=== PATIENT | female | born 1965 | race Caucasian/White ===

== ENCOUNTER 2016-08-16 13:47 | Inpatient (IN) | payer BC ==
[~2016-08-16] VITALS: Ht 162.6 cm; Wt 51.9 kg
[~2016-08-16 13:47] MED LIST: NO ROUTINE MEDS
--- OUTSIDE RECORDS SUMMARY | 2016-08-16 15:08 | XMS REPORT | Continuity of Care Document ---
Author Author [facility] Organization [facility] Address Unknown Phone Unavailable Support Name Relationship Address Phone GOLD FLOWERS MD Caregiver [address] [place] [address] [place] [address] Unavailable JAROCHO GORDON MD Caregiver [address] [place] [address] Unavailable KIA ALLI Jay Next Of Kin [address] [phone] Insurance Providers Guarantor KiaMojgan E Address [address] [place] [phone] Email DENIED 07-25-16 Payer [facility] Policy Number [id number] Subscriber's Name Alli Adam Relationship 01 Spouse Group Number [id number] Chief Complaint and Reason for Visit Chief Complaint Altered Mental Status Reason for Visit Hemorrhagic stroke Problems Past Problems Medical Problem Onset Date Hemorrhagic stroke Unknown Medications Current Home Medications Medication Dose Units Route Directions Days Qty Instructions Start Date No Routine Meds 07/25/16 Social History Query Response Start Date Stop Date Smoking Status Never smoker Hospital Discharge Instructions No hospital discharge instructions. Plan of Care Discharge Date 07/25/16 9:00pm Disposition 02 TO [facility] Condition at Discharge Stabilized for Transport Prescriptions See Medication Section Referrals JAROCHO GORDON MD Address: [address] [place] [address] Functional Status No functional status results. Allergies, Adverse Reactions, Alerts Allergen Type Severity Reaction Status Last Updated NKDA Allergy Unknown Active 07/25/16 Immunizations No immunization records. Vital Signs Acute Vital Signs Vital Response Date/Time Temperature (Fahrenheit) 98.3 deg F (96.8 - 99.1) 07/25/2016 9:00pm Temperature (Calculated Celsius) 36.25667 degrees C (36.0 - 37.3) 07/25/2016 9:00pm Pulse Rate (adult) 88 bpm (60 - 100) 07/25/2016 9:00pm Respiratory Rate 17 breaths/min (10 - 20) 07/25/2016 9:00pm O2 Sat by Pulse Oximetry 98 % (90 - 100) 07/25/2016 9:00pm Blood Pressure 252/134 mm Hg 07/25/2016 9:00pm Height (Feet) 5 feet 07/25/2016 8:10pm Height (Inches) 4.00 inches 07/25/2016 8:10pm Weight (Kilograms) 47.300 kg 07/25/2016 8:10pm Body Mass Index (BMI) 17.0 07/25/2016 8:10pm Results Laboratory Results Test Name Result Units Flags Reference Collection Date/Time Result Date/ Time Comments White Blood Count 6.4 T/MM3 4.5-11.0 07/25/2016 8:27pm 07/25/2016 8: 35pm Red Blood Count 5.43 M/MM3 H 4.00-5.20 07/25/2016 8:27pm 07/25/2016 8: 35pm Hemoglobin 16.8 GM/DL H 12-16 07/25/2016 8:27pm 07/25/2016 8:35pm Hematocrit 48.2 % H 36-46 07/25/2016 8:27pm 07/25/2016 8:35pm Mean Corpuscular Volume 88.8 UM3 80-100 07/25/2016 8:27pm 07/25/2016 8: 35pm Mean Corpuscular Hemoglobin 30.9 UUG 26-34 07/25/2016 8:27pm 2016 8:35pm Mean Corpuscular Hemoglobin Concent 34.9 GM/DL 31-37 07/25/2016 8:pm 07/25/2016 8:35pm RDW Standard Deviation 43.3 FL 36.9-50.2 07/25/2016 8:pm 07/25/2016 8 :35pm Platelet Count 175 T/MM3 130-400 07/25/2016 8:pm 07/25/2016 8:35pm Mean Platelet Volume 10.2 UM3 9.4-12.4 07/25/2016 8:27pm 07/25/2016 8: 35pm Neutrophils (%) (Auto) 63.9 % 33-66 07/25/2016 8:27pm 07/25/2016 8: 35pm Lymphocytes (%) (Auto) 29.0 % 23-45 07/25/2016 8:27pm 07/25/2016 8: 35pm Monocytes (%) (Auto) 5.8 % 0-9.0 07/25/2016 8:27pm 07/25/2016 8:35pm Eosinophils (%) (Auto) 0.8 % 0-4 07/25/2016 8:27pm 07/25/2016 8:35pm Basophils (%) (Auto) 0.3 % 0-2 07/25/2016 8:27pm 07/25/2016 8:35pm Immature Granulocyte % (Auto) 0.2 % 0.0-0.5 07/25/2016 8:pm 2016 8:35pm Absolute Neutrophils (auto) 4.1 T/MM3 1.8-7.7 07/25/2016 8:27pm 2016 8:35pm Absolute Lymphocytes (auto) 1.9 T/MM3 1-4.8 07/25/2016 8:pm 2016 8:35pm Absolute Monocytes (auto) 0.4 T/MM3 0-0.8 07/25/2016 8:27pm 07/25/2016 8:35pm Absolute Eosinophils (auto) 0.1 T/MM3 0-0.5 07/25/2016 8:pm 2016 8:35pm Absolute Basophils (auto) 0.0 T/MM3 0-0.2 07/25/2016 8:27pm 07/25/2016 8:35pm Absolute Immature Granulocyte (auto 0.01 T/MM3 0.00-0.03 07/25/2016 8: 27pm 07/25/2016 8:35pm Prothromb Time International Ratio 0.99 0.76-1.04 07/25/2016 8:pm 07/25/2016 8:38pm THERAPUTIC RANGE=2.00-3.00 FOR ANTI-THROMBOSIS THERAPUTIC RANGE=2.50-3.50 FOR IMPLANTED VALVE Activated Partial Thromboplast Time 34.9 SEC 24-36 07/25/2016 8:27pm 8:38pm Icterus Index < 2 0-7 07/25/2016 8:07/25/2016 8:40pm Chemistry Specimen Hemolysis < 15 0-25 07/25/2016 8:27pm 07/25/2016 8 :40pm 0-25: Specimen Exhibited No Hemolysis. Turbidity < 20 0-20 07/25/2016 8:27pm 07/25/2016 8:40pm Sodium Level 144 MEQ/L 134-144 07/25/2016 8:27pm 07/25/2016 8:40pm Potassium Level 3.8 MEQ/L 3.6-5 07/25/2016 8:27pm 07/25/2016 8:40pm Chloride Level 105 MEQ/L 98-107 07/25/2016 8:27pm 07/25/2016 8:40pm Carbon Dioxide Level 28 MEQ/L 22-30 07/25/2016 8:pm 07/25/2016 8: 40pm Anion Gap 11 MEQ/L 5-15 07/25/2016 8:27pm 07/25/2016 8:40pm Blood Urea Nitrogen 12.0 MG/DL 7-17 07/25/2016 8:pm 07/25/2016 8: 40pm Creatinine 0.9 MG/DL 0.7-1.2 07/25/2016 8:27pm 07/25/2016 8:40pm BUN/Creatinine Ratio 13 RATIO 6-26 07/25/2016 8:pm 07/25/2016 8:40pm Glomerular Filtration Rate Calc 66 07/25/2016 8:pm 07/25/2016 8: 40pm Glucose Level 115 MG/DL H 65-110 07/25/2016 8:pm 07/25/2016 8:40pm Calculated Osmolality 278 MOSM/KG 261-280 07/25/2016 8:pm 07/25/2016 8:40pm Calcium Level 9.9 MG/DL 8.4-10.2 07/25/2016 8:pm 07/25/2016 8:40pm Total Bilirubin 1.10 MG/DL 0.20-1.30 07/25/2016 8:pm 07/25/2016 8: 40pm Alkaline Phosphatase 63 U/L 38-126 07/25/2016 8:27pm 07/25/2016 8:40pm Total Protein 8.6 G/DL H 6.3-8.2 07/25/2016 8:pm 07/25/2016 8:40pm Albumin 5.1 G/DL H 3.5-5.0 07/25/2016 8:27pm 07/25/2016 8:40pm Globulin 3.5 G/DL 2.4-3.6 07/25/2016 8:27pm 07/25/2016 8:40pm Albumin/Globulin Ratio 1.5 RATIO 1.1-2.2 07/25/2016 8:27pm 07/25/2016 8 :40pm Aspartate Amino Transf (AST/SGOT) 38 U/L H 14-36 07/25/2016 8:27pm 07/25 8:40pm Alanine Aminotransferase (ALT/SGPT) 54 U/L H 9-52 07/25/2016 8:27pm 01/2017 8:40pm Troponin I < 0.012 ng/ml 0-0.12 07/25/2016 8:27pm 07/25/2016 8:51pm Troponin values with a difference of 55% increase from orginal troponin value represent a true biological DELTA value. (%increase Calc=Orginal Troponin value, divided by subsequent Troponin value, multiplied by 100) Urine Collection Type CLEANCATCH-MIDSTREAM 07/25/2016 8:58pm 2016 9:04pm Urine Color YELLOW YELLOW 07/25/2016 8:58pm 07/25/2016 9:04pm Urine Turbidity CLEAR CLEAR 07/25/2016 8:58pm 07/25/2016 9:04pm Urine Specific [place] 1.010 L 1.015-1.025 07/25/2016 8:58pm 2016 9:04pm Urine pH 7.0 5.0-8.0 07/25/2016 8:58pm 07/25/2016 9:04pm Urine Leukocyte Esterase NEGATIVE NEGATIVE 07/25/2016 8:58pm 2016 9:04pm Urine Nitrite NEGATIVE NEGATIVE 07/25/2016 8:58pm 07/25/2016 9:04pm Urine Protein NEGATIVE NEGATIVE 07/25/2016 8:58pm 07/25/2016 9:04pm Urine Glucose (UA) NEGATIVE NEGATIVE 07/25/2016 8:58pm 07/25/2016 9: 04pm Urine Ketones NEGATIVE NEGATIVE 07/25/2016 8:58pm 07/25/2016 9:04pm Urine Urobilinogen 0.2 EU/DL NORMAL 07/25/2016 8:58pm 07/25/2016 9: 04pm Urine Bilirubin NEGATIVE NEGATIVE 07/25/2016 8:58pm 07/25/2016 9: 04pm Urine Blood NEGATIVE NEGATIVE 07/25/2016 8:58pm 07/25/2016 9:04pm Urinalysis Comment MICROSCOPIC NOT IND. 07/25/2016 8:58pm 2016 9:04pm Glucometer 106 mg/dL 65-110 07/25/2016 8:20pm 07/25/2016 9:30pm Procedures No known history of procedures. Encounters Encounter Location Arrival/Admit Date Discharge/Depart Date Attending Provider Departed Emergency Room [facility] 07/25/16 8:01pm 07/25/16 9: 00pm GOLD FLOWERS MD Recent Diagnosis
--- NOTE | 2016-08-16 15:10 | NUR ---
Admission 51 year old female admitted to room 170. pt came via EMS from [facility]. pt accompanied by her . pt alert but non verbal due to a intracranial hemorrhage. pt has coreas catheter. pt able to smile and blinks her eyes. Pt has 2 spots on the right side of her head that has stitches. no signs of any other skin issues noted. pt has not received flu vaccine this year, refused to have it given.
[2016-08-16 15:36] VITALS: Ht 162.6 cm; Wt 51.9 kg
[2016-08-16 15:37] VITALS: BP 131/81; PULSE 69; RESP 16; TEMP 97.6; O2SAT 97
[2016-08-16] MEDS ORDERED: ENOX40DI8 SQ (16:13)
[2016-08-16] MEDS ORDERED: HYDR20VI7 IV (16:13)
[2016-08-16] MEDS ORDERED: CLON0.1T PO (16:13)
[2016-08-16] MEDS ORDERED: ATOR40TA64 PO (16:13)
[2016-08-16] MEDS ORDERED: BACL10TA PO (16:13)
[2016-08-16] MEDS ORDERED: [UNRECOGNIZED DRUG - CODE] IV (16:17)
[2016-08-16] MEDS ORDERED: METO100T5 PO (16:17)
[2016-08-16] MEDS ORDERED: AMLO10TA2 PO (16:17)
[2016-08-16] MEDS ORDERED: HYDR20VI7 PO (16:17)
[2016-08-16] MEDS ORDERED: NITR0.4T39 SL (16:17)
[2016-08-16] MEDS ORDERED: CITA20TA9 PO (16:21)
[2016-08-16] MEDS ORDERED: ASPI81TA2 PO (16:21)
[2016-08-16] MEDS ORDERED: LISI10TA7 PO (16:21)
[2016-08-16] MEDS ORDERED: ACET160L13 PO (16:21)
[2016-08-16] MEDS ORDERED: MAGN400O4 PO (16:27)
[2016-08-16] MEDS ORDERED: ONDA4SOL PO (16:27)
[2016-08-16] MEDS ORDERED: POLY17PO6 PO (16:27)
[2016-08-16] MEDS ORDERED: BISA10SU8 RECTALLY (16:27)
[2016-08-16] MEDS ORDERED: DEXT38GE PO (16:27)
[2016-08-16] MEDS ORDERED: ONDA4VIA23 IV (16:27)
[2016-08-16] MEDS ORDERED: PANT40TA27 PO (16:30)
[2016-08-16] MEDS ORDERED: PRED10TA PO (16:30)
[2016-08-16] MEDS ORDERED: PRED20TA PO ×2 (16:30→16:31)
[2016-08-16] MEDS ORDERED: METF500T4 PO (16:36)
[2016-08-16] MEDS ORDERED: GLUC1KIT IM (16:36)
[2016-08-16] MEDS ORDERED: TAMS0.4C47 PO (16:36)
[2016-08-16] MEDS ORDERED: INSU100V SQ (16:36)
--- NOTE | 2016-08-16 17:02 | CONSPD ---
KIERSTEN MCCARTHY V FRAMING MECHANIC 08/16/16 1610: Consultation Info Date DATE: 08/16/16 TIME: 16:07 Date of Consultation: Aug 16, 2016 Attending Physician: Jim Reason for Consultation: Cva, HTN HPI - Adult Date DATE: 08/16/16 TIME: 16:07 General History of Present Illness Patient is a 51-year-old female who was brought to emergency room on 07/25/16 for sudden onset of expressive aphasia. She was found extremely hypertensive at that time 275/[address] scan revealed an acute intraparenchymal hemorrhage CVA with 6mm left to right midline shift. She was also found to have numerous scattered areas of ischemia and multiple intracranial vascular territories likely embolic. She was transferred acutely to [facility] where she has been for the past 3 weeks. During her stay at [facility] she was placed on the ventilator due to acute respiratory failure and subsequently developed ventilator associated pneumonia, Pseudomonas and was extubated on 08/08/16. Sputum culture was positive for Pseudomonas Aeruginosa and Ecoli on 08/06/16 and she has completed her antibiotic course. She has been on Norvasc 10 milligrams daily, clonidine 0.1 milligrams 3 times a day, hydralazine 20 milligrams every 4 hours, lisinopril 10 milligrams daily, metoprolol 200 milligrams twice a day along with when necessary hydralazine and labetalol for aggressive blood pressure control. She underwent a 4 vessel angio on 08/01/16 revealing scattered areas of vascular irregularity suspicious for vasculitis, she was then placed on steroids. Her ANCA (Anti- neutrophil Cytoplasmic antibody) was found to be negative. . She did have hydrocephalus with elevated opening pressure and EVD was placed on 08/02, this was removed on . She was placed on Seroquel several days ago in attempt to assist with sleeping however it was significantly sedating and affected her verbal response, as well as ability to work with therapy. This was discontinued prior to discharge. 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 She was seeking natural pathic treatments and medications for her symptoms as well as blood pressure prior to this event. Mojgan is seen today for initial examination on arrival to the rehabilitation unit. She is alert with her eyes open and makes eye contact during examination, however, is nonverbal. She will smile briefly and is able to squeeze with left hand and wiggle the right toes. Otherwise, unable to follow commands. Past Medical History Past Medical History Left thalamus bleed with mass effect and midline shift. 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 Superficial thrombus of the right cephalic vein from forearm to distal wrist 08/08/16 Hydrocephalus Ventilator associated pneumonia, Pseudomonas positive-08/08/16 Hyperlipidemia Hypertension Endometriosis Surgical History Patient's Surgical History: 08/02/16- EVD drain place, removed on 08/05/16- for treatment of Hydrocephalus [id number] Current Medications Home Meds Reported Medications Tamsulosin HCl (Tamsulosin HCl) 0.4 Mg Cap.er.24h, 0.4 MG PO HS 08/16/16 Glucagon,Human Recombinant (Glucagon Emergency Kit) 1 Mg/Kit Syringe, 1 MG IM O Y for HYPOGLYCEMIA 08/16/16 Metformin HCl (Metformin HCl) 500 Mg Tablet, 500 MG PO BIDWM 08/16/16 Insulin Lispro (Humalog) 100 Unit/Ml Inj, 1 UNIT SQ PRN 08/16/16 Prednisone (Prednisone) 20 Mg Tablet, 20 MG PO WB start 09/05/16 08/16/16 Prednisone (Prednisone) 10 Mg Tablet, 30 MG PO WB start 08/22/16 08/16/16 Prednisone (Prednisone) 20 Mg Tablet, 40 MG PO WB 08/16/16 Pantoprazole Sodium (Pantoprazole Sodium) 40 Mg Tablet.dr, 40 MG PO HS 08/16/16 Ondansetron HCl (Ondansetron HCl) 4 Mg/5 Ml Solution, 4 MG PO Q6H Y for NAUSEA & /OR VOMITING 08/16/16 Ondansetron HCl/Pf (Ondansetron HCl 4 mg/2 ml Vial) 4 Mg/2 Ml Vial, 4 MG IV Q6H Y for NAUSEA &/OR VOMITING 08/16/16 Polyethylene Glycol 3350 (Miralax) 17 Gm Powd.pack, 17 G PO BID Y for CONSTIPATION 08/16/16 Bisacodyl (Bisacodyl) 10 Mg Supp.rect, 10 MG RECTALLY BID Y for CONSTIPATION 08/16/16 Magnesium Hydroxide (Milk of Magnesia) 400 Mg/5 Ml Oral.susp, 30 ML PO HS Y for CONSTIPATION 08/16/16 Dextrose (Glucose Gel) 38 Gm Gel..gram., 15 GM PO O Y for HYPOGLYCEMIA 08/16/16 Citalopram Hydrobromide (Citalopram HBr) 20 Mg Tablet, 20 MG PO HS 08/16/16 Acetaminophen (Acetaminophen) 160 Mg/5 Ml Liquid, 650 MG PO Q4H Y for PAIN/FEVER 08/16/16 Aspirin (Aspirin) 81 Mg Tab.chew, 81 MG PO DAILY 08/16/16 Lisinopril (Lisinopril) 10 Mg Tablet, 10 MG PO DAILY 08/16/16 Amlodipine Besylate (Amlodipine Besylate) 10 Mg Tablet, 10 MG PO DAILY 08/16/16 Metoprolol Tartrate (Metoprolol Tartrate) 100 Mg Tablet, 200 MG PO BIDWM 08/16/16 Labetalol HCl (Labetalol HCl) 20 Mg/4 Ml Syringe, 10 MG IV Q2H Y for PRN ORDERS 08/16/16 Nitroglycerin (Nitroglycerin) 0.4 Mg Tab.subl, 0.4 MG SL Q5M Y for CHEST PAIN 08/16/16 Hydralazine HCl (Hydralazine HCl) 20 Mg/1 Ml Vial, 20 MG PO Q4H 08/16/16 Clonidine HCl (Clonidine HCl) 0.1 Mg Tablet, 0.1 MG PO TID 08/16/16 Hydralazine HCl (Hydralazine HCl) 20 Mg/1 Ml Vial, 10 MG IV Q2H Y for PRN ORDERS 08/16/16 Atorvastatin Calcium (Atorvastatin Calcium) 40 Mg Tablet, 40 MG PO HS 08/16/16 Enoxaparin Sodium (Enoxaparin Sodium) 40 Mg/0.4 Ml Syringe, 40 MG SQ DAILY 08/16/16 Baclofen (Baclofen) 10 Mg Tablet, 10 MG PO TID 08/16/16 Allergies: Coded Allergies: NKDA (Verified Allergy, Unknown, 07/25/16) Family History Family History: Mother-hypertension, CVA at age 76 Social History Smoking Status: Never smoker Does patient use chewing tobac: No Second Hand Exposure: No Substance Use Type: does not use Alcohol Intake: none Marital Status: Sexuality: male partner Housing: house Advance Directives: Yes Full Code Social History Comments PCP Dr Nieves Bradford in [place], [place] Review of Systems Unable to Obtain ROS Due to: clinical condition Comments Unable to obtain ROS due to clinical condition Physical Exam General General Nourishment: well nourished, well developed Vital Signs Vital Signs Date Time Temp Pulse Resp B/P Pulse Ox O2 Delivery O2 Flow Rate FiO2 08/16/16 15:37 97.6 69 16 131/81 97 Room Air Height (Feet): 5 Height (Inches): 4.00 Eyes Brief: FOUND: EOMI ENMT Brief: FOUND: mucosa moist Respiratory Brief: FOUND: clear all jurado, equal bilaterally Cardiovascular (brief) Cardiac Brief: FOUND: regular rate, regular rhythm Abdomen (brief) Abdominal Brief: FOUND: BS normo active x4, soft Neurologic (brief) Comments Hand grasp left hand, move toes on right foot Neurologic RN Documented GCS Eye Opening: Verbal: Motor: Total: Impression/Recommendation Problems: (1) Hemorrhagic cerebrovascular accident (CVA) Status: Acute Assessment & Plan: 07/25/16 (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 We will continue with careful blood pressure control including Norvasc 10 milligrams daily, clonidine 0.1 milligrams 3 times a day, hydralazine 20 milligrams every 4, lisinopril 10 milligrams daily, Toprol 200 milligrams twice a day. There is when necessary medication available including hydralazine and labetalol Dysphagia diet with pured solids and thick liquids Continue with prednisone taper 40 milligrams daily until 08/21/16. On 08/22/16 decreased to 30 milligrams daily, on 08/29 decreased to 20 milligrams daily. Monitor Accu-Cheks. Patient was placed on metformin due to hyperglycemia, likely secondary to increased steroid use. No history of diabetes. will continue to monitor. Continue on aspirin daily as well as Atorvastatin Continue with Celexa daily. does verbalize concern with sleeping medications that she had a increased sedation with use of small dose Seroquel to help with sleeping. He is very hesitant/cautious to use medications that will cause her to be more sedated, which in turn makes her less likely to work with therapy. PT, OT and speech for ongoing Lovenox subcutaneous daily for DVT prophylaxis Will follow routine labs during stay on IRU. Will discuss furhter with Dr Fernandez (hospitalist) and Dr Rocha (IRU) At time of discharge medical care will return to PCP EDUARD Obando MD 08/17/16 0025: Past Medical History Current Medications Home Meds Reported Medications Tamsulosin HCl (Tamsulosin HCl) 0.4 Mg Cap.er.24h, 0.4 MG PO HS 08/16/16 Glucagon,Human Recombinant (Glucagon Emergency Kit) 1 Mg/Kit Syringe, 1 MG IM O Y for HYPOGLYCEMIA 08/16/16 Metformin HCl (Metformin HCl) 500 Mg Tablet, 500 MG PO BIDWM 08/16/16 Insulin Lispro (Humalog) 100 Unit/Ml Inj, 1 UNIT SQ PRN 08/16/16 Prednisone (Prednisone) 20 Mg Tablet, 20 MG PO WB start 09/05/16 08/16/16 Prednisone (Prednisone) 10 Mg Tablet, 30 MG PO WB start 08/22/16 08/16/16 Prednisone (Prednisone) 20 Mg Tablet, 40 MG PO WB 08/16/16 Pantoprazole Sodium (Pantoprazole Sodium) 40 Mg Tablet.dr, 40 MG PO HS 08/16/16 Ondansetron HCl (Ondansetron HCl) 4 Mg/5 Ml Solution, 4 MG PO Q6H Y for NAUSEA & /OR VOMITING 08/16/16 Ondansetron HCl/Pf (Ondansetron HCl 4 mg/2 ml Vial) 4 Mg/2 Ml Vial, 4 MG IV Q6H Y for NAUSEA &/OR VOMITING 08/16/16 Polyethylene Glycol 3350 (Miralax) 17 Gm Powd.pack, 17 G PO BID Y for CONSTIPATION 08/16/16 Bisacodyl (Bisacodyl) 10 Mg Supp.rect, 10 MG RECTALLY BID Y for CONSTIPATION 08/16/16 Magnesium Hydroxide (Milk of Magnesia) 400 Mg/5 Ml Oral.susp, 30 ML PO HS Y for CONSTIPATION 08/16/16 Dextrose (Glucose Gel) 38 Gm Gel..gram., 15 GM PO O Y for HYPOGLYCEMIA 08/16/16 Citalopram Hydrobromide (Citalopram HBr) 20 Mg Tablet, 20 MG PO HS 08/16/16 Acetaminophen (Acetaminophen) 160 Mg/5 Ml Liquid, 650 MG PO Q4H Y for PAIN/FEVER 08/16/16 Aspirin (Aspirin) 81 Mg Tab.chew, 81 MG PO DAILY 08/16/16 Lisinopril (Lisinopril) 10 Mg Tablet, 10 MG PO DAILY 08/16/16 Amlodipine Besylate (Amlodipine Besylate) 10 Mg Tablet, 10 MG PO DAILY 08/16/16 Metoprolol Tartrate (Metoprolol Tartrate) 100 Mg Tablet, 200 MG PO BIDWM 08/16/16 Labetalol HCl (Labetalol HCl) 20 Mg/4 Ml Syringe, 10 MG IV Q2H Y for PRN ORDERS 08/16/16 Nitroglycerin (Nitroglycerin) 0.4 Mg Tab.subl, 0.4 MG SL Q5M Y for CHEST PAIN 08/16/16 Hydralazine HCl (Hydralazine HCl) 20 Mg/1 Ml Vial, 20 MG PO Q4H 08/16/16 Clonidine HCl (Clonidine HCl) 0.1 Mg Tablet, 0.1 MG PO TID 08/16/16 Hydralazine HCl (Hydralazine HCl) 20 Mg/1 Ml Vial, 10 MG IV Q2H Y for PRN ORDERS 08/16/16 Atorvastatin Calcium (Atorvastatin Calcium) 40 Mg Tablet, 40 MG PO HS 08/16/16 Enoxaparin Sodium (Enoxaparin Sodium) 40 Mg/0.4 Ml Syringe, 40 MG SQ DAILY 08/16/16 Baclofen (Baclofen) 10 Mg Tablet, 10 MG PO TID 08/16/16 Allergies: Coded Allergies: NKDA (Verified Allergy, Unknown, 07/25/16) Impression/Recommendation Impression This is a late entry. I did see the patient on 08/16/2016 around 9 or 9:30 PM. Her was present. The patient is not able to give any history because of her severe stroke. Her states that she was on the ventilator for over a week at [facility]. She had a Dobbhoff tube in place until today. She was taking her medications orally and eating and drinking orally. She did have medications that were prescribed every 4 hours and the evening doses would be given per tube. He is concerned that she may not awaken well enough in the middle of the night to safely swallow her pills. Did tell the nurse not to give her middle of the night pills if she cannot be awakened to take them safely. She does have when necessary IV medication for hypertension. We'll make sure an IV is in place. We'll place the patient on telemetry. She is on 5 different scheduled oral antihypertensives. Her also states that she had been on Seroquel recently to try to improve her sleep-wake cycle. He states that she was extremely somnolent after the first dose of Seroquel and did not wake up enough to eat until 6 PM the following day. Will somnolent the following day. Seroquel was not on the list of medications for her to continue on discharge. He states that before she started the Seroquel she would say yes and no and a couple of other single word responses. He states that since that time she has not been saying any words. He is hopeful that once this medication is out of her system but she will be able to respond better again. He states that while she was at [facility] she did undergo a four-vessel angiogram and there was concern that she may have vasculitis. Per the patient's , lab work did not confirm vasculitis but her physicians at [facility] recommended continued prednisone taper and reevaluation with a neurologist and repeat four- vessel angiogram in mid August. We will try to confirm this information. The patient's states that he would like her set up with an outpatient neurologist. We will consult Dr. Alvarenga to see the patient on Friday On my exam the patient is somnolent but arousable. She is not able to follow any commands. She does look at me and when I smile she smiles back. On exam she appears very thin and weight is up 114 pounds. Her states that is stable for her. HEENT reveals oropharynx to be moist. Chest is "auscultation. Cardiovascular reveals a regular rate and rhythm. Abdomen is soft and nontender. Extremities are free of edema. As recommended by her transferring physicians. We'll continue PT OT and speech therapy. Will monitor blood sugars closely, especially as creases. Continue Lovenox for DVT prophylaxis. Continue aspirin and statin for recent stroke KIERSTEN MCCARTHY APRN Aug 16, 2016 16:10 EDUARD FERNANDEZ MD Aug 17, 2016 00:25
[2016-08-16] MEDS ORDERED: POLYETHYL.GLYCOL 3350 PACKET 17gm PO PRN (17:15)
[2016-08-16] MEDS ORDERED: MILK OF MAGNESIA 30 ML SUSP PO PRN (17:15)
[2016-08-16] MEDS ORDERED: ONDANSETRON 4mg/2ml INJECTION IV PRN (17:15)
[2016-08-16] MEDS ORDERED: NITROGLYCERIN 0.4 MG SUBLINGUAL TABLET SL PRN (17:15)
[2016-08-16] MEDS ORDERED: LABETALOL 20mg/4ml INJECTION IV PRN (17:15)
[2016-08-16] MEDS ORDERED: INSULIN LISPRO 100 UNIT/ML SQ PRN (17:15)
[2016-08-16] MEDS ORDERED: ACETAMINOPHEN 325 MG TABLET PO PRN (17:15)
[2016-08-16] MEDS ORDERED: GLUCAGON 1 MG INJECTION IM PRN (17:15)
[2016-08-16] MEDS ORDERED: GLUCOSE ORAL GEL 40% 37.5 G TUBE PO PRN (17:15)
[2016-08-16] MEDS ORDERED: BISACODYL 10 MG SUPPOSITORY RECTALLY PRN (17:15)
[2016-08-16] MEDS ORDERED: ONDANSETRON 4mg/5ml ORAL SOLN PO PRN (17:15)
--- NOTE | 2016-08-16 18:33 | NUR ---
Diet: Pureed, H-T liquid, 6 small meals BMI: 19.6; feeding assist; RD ordered 6 small meal for the next two days. M/E: intake, tolerance, preferences RD will continue to monitor x 1406
[2016-08-16] MEDS: METFORMIN 500 MG TABLET PO SCH (18:36)
[2016-08-16] MEDS: DOCUSATE SODIUM 100 MG CAPSULE PO SCH (20:32)
[2016-08-16] MEDS: BACLOFEN 10 MG TABLET PO SCH (20:33)
[2016-08-16] MEDS: CLONIDINE 0.1 MG TABLET PO SCH (20:36)
[2016-08-16 21:42] VITALS: BP 140/77; PULSE 77; RESP 14; O2SAT 96
[2016-08-16] MEDS ORDERED: PANTOPRAZOLE 40 MG TABLET PO SCH (22:00)
[2016-08-16] MEDS ORDERED: TAMSULOSIN 0.4 MG CAPSULE PO SCH (22:00)
[2016-08-16] MEDS ORDERED: ATORVASTATIN 40 MG TABLET PO SCH (22:00)
[2016-08-16 23:00] VITALS: BP 131/77; PULSE 74
[2016-08-17 01:00] VITALS: BP 152/86; PULSE 68
[2016-08-17 05:28] VITALS: BP 157/92; PULSE 70
[2016-08-17 06:11] LABS: HGB - HEMOGLOBIN 13.3 GM/DL (12-16); MEAN CORPUSCULAR HGB 31.5 UUG (26-34); MEAN CORPUSCULAR HGB CONC(MCHC 33.3 GM/DL (31-37); MEAN CORPUSCULAR VOLUME 94.8 UM3 (80-100); MEAN PLATELET VOLUME 9.7 UM3 (9.4-12.4); RED BLOOD COUNT 4.22 M/MM3 (4.00-5.20); WBC - WHITE BLOOD COUNT 9.5 T/MM3 (4.5-11.0)
[2016-08-17 06:22] LABS: ANION GAP 9 MEQ/L (5-15); BUN/CREATININE RATIO 25 RATIO (6-26); CALCIUM 9.3 MG/DL (8.4-10.2); CHLORIDE 103 MEQ/L (98-107); CO2 - CARBON DIOXIDE 31 MEQ/L (22-30); CREATININE 0.6 MG/DL (0.7-1.2); GLOMERULAR FILTRATION RATE 105; GLUCOSE 111 MG/DL (65-110); SODIUM 143 MEQ/L (134-144)
--- NOTE | 2016-08-17 07:16 | NUR ---
Summary Pt had and visitors last night. Pt tolerated meds well crushed in pudding. Oral cares provided 3 times this shift. Pt is alert with eyes open. Pt can smile at appropriate times and has facial grimacing when uncomfortable. Pt repositioned Q2 through the night. Dubose patent. No BM. Pt sleeping at this time.
[2016-08-17] MEDS: METFORMIN 500 MG TABLET PO SCH (07:36)
[2016-08-17 07:37] LABS: BAND NEUTROPHILS # 0.1 T/MM3; LYMPHOCYTES # (MANUAL) 1.9 T/MM3 (1-4.8); MYELOCYTES # 0.1 T/MM3; NEUTROPHILS #(MANUAL)-ABSOLUTE 6.5 T/MM3 (1.8-7.7); TOTAL CELLS COUNTED 100 %
[2016-08-17] MEDS: CLONIDINE 0.1 MG TABLET PO SCH (07:39)
[2016-08-17] MEDS: BACLOFEN 10 MG TABLET PO SCH (07:39)
[2016-08-17] MEDS: DOCUSATE SODIUM 100 MG CAPSULE PO SCH (07:40)
[2016-08-17 07:55] VITALS: BP 160/100; PULSE 82; RESP 16; TEMP 98.7; O2SAT 96
[2016-08-17] MEDS ORDERED: PredniSONE 20 MG TABLET PO SCH (08:00)
[2016-08-17 08:42] VITALS: BP 106/64; PULSE 68
[2016-08-17] MEDS ORDERED: LISINOPRIL 10 MG TABLET PO SCH (09:00)
[2016-08-17] MEDS ORDERED: ASPIRIN 81 MG CHEWABLE TABLET PO SCH (09:00)
[2016-08-17] MEDS ORDERED: AMLODIPINE 10 MG TABLET PO SCH (09:00)
[2016-08-17] MEDS ORDERED: ENOXAPARIN 40 MG/0.4 ML INJECTION SQ SCH (09:00)
[2016-08-17 10:00] VITALS: PULSE 68; RESP 16; O2SAT 96
--- NOTE | 2016-08-17 10:05 | PNPDOC ---
GAYLA VEGA GAME WARDEN 08/17/16 1005: Progress Note Date 08/17/16 Pt. seen this morning for follow up on BP and consultation done yesterday. Upon entering room, the patient was sleeping heavily. Respirations shallow with several second pauses periodically. She appears thin and ill. I did assess- LCTAB. No crackles or wheezes. Abd soft and NT. BS are present x 4. Early contractures left side. Skin is sallow and a bit icteric. Upon further exam, her pupils are 2mm and minimally reactive. Eyes are rolled upward. I attempted to call her name loudly, gentle shaking, deep sternal rub several times, and deep nailbed pressure without any results, including flinching or facial grimacing. I reviewed chart and ordered Stat CT of the head. VS checked- O2 sat 97% on RA, pulse mid 60's and strong to radial palpation. After the above intervention, I asked Dr. Fernandez to assess pt, as I had not seen her previously and was unclear on baseline. Due to altered mental status, high risk for adverse effect. Move to ICU for closer assessment. I have reviewed her past medical records at length and discussed with Dr. Fernandez. Care assisted with in the ICU. I spent greater than 60 minutes at bedside due to high likelihood of sudden deterioration, need for assessment, coordination of care and assisting Dr. Fernandez. Please see her notes for ongoing plan of care. I have discussed with IRU and ICU staff, radiology staff, and Dr. Fernandez at length. EDUARD FERNANDEZ MD 08/17/162055: Progress Note See my additional notes from admission to inpatient care on the same date GAYLA VEGA APRN Aug 17, 2016 10:05 EDUARD FERNANDEZ MD Aug 17, 2016 20:56
--- NOTE | 2016-08-17 11:07 | NUR ---
Discharge pt seen by Dr. Fernandez and LUZ Reeves this am. pt became non responsive. orders received to transfer pt to icu bed 5. Dr. Rocha notified of transfer. called and notified of status change and the transfer.
--- NOTE | 2016-08-17 14:01 | HPPDOC ---
HPI Date DATE: 08/17/16 TIME: 13:54 General Chief Complaint: CVA History of Present Illness 51-year-old female with left thalamic CVA. Patient was initially evaluated due to an expressive aphasia she progressed during admission at [facility] and developed acute respiratory failure, ultimately developing barotrauma and pneumonia from intubation. She was placed on steroids and then developed hydrocephalus as well. She has had decreased ability to interact, severe weakness. On preadmission screen, she was very willing to pursue 3 hours daily physical therapy occupational therapy and was excited about the program. Past Medical History Past Medical History Left thalamus bleed with mass effect and midline shift. 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 Superficial thrombus of the right cephalic vein from forearm to distal wrist 08/08/16 Hydrocephalus Ventilator associated pneumonia, Pseudomonas positive-08/08/16 Hyperlipidemia Hypertension Endometriosis Surgical History Patient's Surgical History: 08/02/16- EVD drain place, removed on 08/05/16- for treatment of Hydrocephalus [id number] Current Medications Home Meds Reported Medications Tamsulosin HCl (Tamsulosin HCl) 0.4 Mg Cap.er.24h, 0.4 MG PO HS 08/16/16 Glucagon,Human Recombinant (Glucagon Emergency Kit) 1 Mg/Kit Syringe, 1 MG IM O Y for HYPOGLYCEMIA 08/16/16 Metformin HCl (Metformin HCl) 500 Mg Tablet, 500 MG PO BIDWM 08/16/16 Insulin Lispro (Humalog) 100 Unit/Ml Inj, 1 UNIT SQ PRN 08/16/16 Prednisone (Prednisone) 20 Mg Tablet, 20 MG PO WB start 09/05/16 08/16/16 Prednisone (Prednisone) 10 Mg Tablet, 30 MG PO WB start 08/22/16 08/16/16 Prednisone (Prednisone) 20 Mg Tablet, 40 MG PO WB 08/16/16 Pantoprazole Sodium (Pantoprazole Sodium) 40 Mg Tablet.dr, 40 MG PO HS 08/16/16 Ondansetron HCl (Ondansetron HCl) 4 Mg/5 Ml Solution, 4 MG PO Q6H Y for NAUSEA & /OR VOMITING 08/16/16 Ondansetron HCl/Pf (Ondansetron HCl 4 mg/2 ml Vial) 4 Mg/2 Ml Vial, 4 MG IV Q6H Y for NAUSEA &/OR VOMITING 08/16/16 Polyethylene Glycol 3350 (Miralax) 17 Gm Powd.pack, 17 G PO BID Y for CONSTIPATION 08/16/16 Bisacodyl (Bisacodyl) 10 Mg Supp.rect, 10 MG RECTALLY BID Y for CONSTIPATION 08/16/16 Magnesium Hydroxide (Milk of Magnesia) 400 Mg/5 Ml Oral.susp, 30 ML PO HS Y for CONSTIPATION 08/16/16 Dextrose (Glucose Gel) 38 Gm Gel..gram., 15 GM PO O Y for HYPOGLYCEMIA 08/16/16 Citalopram Hydrobromide (Citalopram HBr) 20 Mg Tablet, 20 MG PO HS 08/16/16 Acetaminophen (Acetaminophen) 160 Mg/5 Ml Liquid, 650 MG PO Q4H Y for PAIN/FEVER 08/16/16 Aspirin (Aspirin) 81 Mg Tab.chew, 81 MG PO DAILY 08/16/16 Lisinopril (Lisinopril) 10 Mg Tablet, 10 MG PO DAILY 08/16/16 Amlodipine Besylate (Amlodipine Besylate) 10 Mg Tablet, 10 MG PO DAILY 08/16/16 Metoprolol Tartrate (Metoprolol Tartrate) 100 Mg Tablet, 200 MG PO BIDWM 08/16/16 Labetalol HCl (Labetalol HCl) 20 Mg/4 Ml Syringe, 10 MG IV Q2H Y for PRN ORDERS 08/16/16 Nitroglycerin (Nitroglycerin) 0.4 Mg Tab.subl, 0.4 MG SL Q5M Y for CHEST PAIN 08/16/16 Hydralazine HCl (Hydralazine HCl) 20 Mg/1 Ml Vial, 20 MG PO Q4H 08/16/16 Clonidine HCl (Clonidine HCl) 0.1 Mg Tablet, 0.1 MG PO TID 08/16/16 Hydralazine HCl (Hydralazine HCl) 20 Mg/1 Ml Vial, 10 MG IV Q2H Y for PRN ORDERS 08/16/16 Atorvastatin Calcium (Atorvastatin Calcium) 40 Mg Tablet, 40 MG PO HS 08/16/16 Enoxaparin Sodium (Enoxaparin Sodium) 40 Mg/0.4 Ml Syringe, 40 MG SQ DAILY 08/16/16 Baclofen (Baclofen) 10 Mg Tablet, 10 MG PO TID 08/16/16 Allergies: Coded Allergies: codeine (Unverified Allergy, Unknown, 08/17/16) Family History Family History: Mother-hypertension, CVA at age 76 Social History Smoking Status: Never smoker Does patient use chewing tobac: No Second Hand Exposure: No Substance Use Type: does not use Alcohol Intake: none Marital Status: Sexuality: male partner Housing: house Advance Directives: Yes Full Code Review of Systems Constitutional: REPORTS: weakness, weight loss Pulmonary Respiratory: see HPI Musculoskeletal General: atrophy of muscles, weakness Neurological General: see HPI All Other Systems All Other Systems: Reviewed Physical Exam General General Nourishment: thin, adult Vital Signs Vital Signs Date Time Temp Pulse Resp B/P Pulse Ox O2 Delivery O2 Flow Rate FiO2 08/17/16 08:42 68 106/64 08/17/16 07:55 98.7 16 96 Room Air Height (Feet): 5 Height (Inches): 4.00 Telemetry Rhythm: Sinus Rhythm Eyes Brief: FOUND: EOMI, PERRL Respiratory Brief: FOUND: rales (bilateral) Cardiovascular (brief) Cardiac Brief: FOUND: regular rate, regular rhythm Capillary Refill: <2 sec Abdomen (brief) Abdominal Brief: FOUND: BS normo active x4, soft Musculoskeletal (brief) Musculoskeletal Brief: FOUND: loss of motion Integumentary (brief) Integumentary Brief: FOUND: pink, warm Neurologic (brief) Comments Difficult to evaluate, patient definitely has right-sided weakness, slight left- sided facial droop. Neurologic RN Documented GCS Eye Opening: Verbal: Motor: Total: Psychiatric (brief) Comments [place] Laboratory Laboratory Tests Test 08/17/16 05:33 08/17/16 10:20 08/17/16 10:40 White Blood Count 9.5T/MM3 Red Blood Count 4.22M/MM3 Hemoglobin 13.3GM/DL Hematocrit 40.0% Mean Corpuscular Volume 94.8UM3 Mean Corpuscular Hemoglobin 31.5UUG Mean Corpuscular Hemoglobin Concent 33.3GM/DL RDW Standard Deviation 44.1FL Platelet Count 324T/MM3 Mean Platelet Volume 9.7UM3 Immature Granulocyte % (Auto) % Neutrophils (%) (Auto) % Lymphocytes (%) (Auto) % Monocytes (%) (Auto) % Eosinophils (%) (Auto) % Basophils (%) (Auto) % Absolute Immature Granulocyte (auto T/MM3 Absolute Neutrophils (auto) T/MM3 Absolute Lymphocytes (auto) T/MM3 Absolute Monocytes (auto) T/MM3 Absolute Eosinophils (auto) T/MM3 Absolute Basophils (auto) T/MM3 Neutrophils % (Manual) 68.0% Band Neutrophils % 1.0% Lymphocytes % (Manual) 20.0% Monocytes % (Manual) 10.0% Myelocytes % 1.0% Absolute Neutrophils (Manual) 6.5T/MM3 Band Neutrophils # 0.1T/MM3 Lymphocytes # (Manual) 1.9T/MM3 Monocytes # (Manual) 1.0T/MM3 Myelocytes # 0.1T/MM3 Red Cell Morphology Comment Normal Turbidity < 20 Sodium Level 143MEQ/L Potassium Level 4.0MEQ/L Chloride Level 103MEQ/L Carbon Dioxide Level 31MEQ/L Anion Gap 9MEQ/L Blood Urea Nitrogen 15.0MG/DL Creatinine 0.6MG/DL Glomerular Filtration Rate Calc 105 BUN/Creatinine Ratio 25RATIO Glucose Level 111MG/DL Calculated Osmolality 277MOSM/KG Calcium Level 9.3MG/DL Icterus Index < 2 Chemistry Specimen Hemolysis < 15 Arterial Blood pH 7.510 Arterial Blood Partial Pressure CO2 39MMHG Arterial Blood pO2 at Patient Temp 79MMHG Arterial Blood HCO3 31MEQ/L Arterial Blood Total CO2 32.3MEQ/L Arterial Blood Oxygen Saturation 97.0% Arterial Blood Base Excess 7.5MMOL/L Oxygen Delivery Method (LAB) Room air Blood Gas Oxygen Liter Flow Blood Gas Oxygen Percent Given Blood Gas Vent Rate Blood Gas Tidal Volume ML Ammonia < 9UMOL/L Concerns For Adverse Events Ability to complete 3 hour daily tasks. Patient has been a very supportive of this concept, however she will definitely need medical supervision as well as significant support from staff. Assessment & Plan Problems: (1) Myoclonus Status: Acute Assessment & Plan: Physical therapy, occupational therapy will work with patient for treatment of spastic muscle and overall myopathy from CVA. (2) Aphasia Status: Acute Assessment & Plan: Speech to work with patient. (3) Hemorrhagic cerebrovascular accident (CVA) Status: Acute Assessment & Plan: Medical to manage DVT Prophylaxis: SCD'S Code Status Full Code Interventions to Obtain Goals PT Treatment Plan: Therapeutic Exercise, Gait Training, Functional Activities , Patient/Family Education, Balance/Proprioception OT Treatment Plan: ADL's (basic care), Ther. Exercise for ADL's, UE Functional Training, Pt./Family Education Hospital Course Summary Disclaimer The hospital course summary below is not to be considered part of the above Progress Note. KELSEY STEEN MD Aug 17, 2016 13:57
--- NOTE | 2016-08-17 14:04 | IRU24PDOC ---
24 Hour Post Admission Eval Relevant Changes Relevant Changes: No I have reviewed the patient's information and concur with the finding and results of the pre-admission screen. Certification I certify the patient for rehabilitation. Patient Condition Prior Medical Conditions: (1) Myoclonus Status: Acute Additional Information: Physical therapy, occupational therapy will work with patient for treatment of spastic muscle and overall myopathy from CVA. (2) Aphasia Status: Acute Additional Information: Speech to work with patient. (3) Hemorrhagic cerebrovascular accident (CVA) Status: Acute Additional Information: Medical to manage Current Medical Conditions: (1) Myoclonus Status: Acute Additional Information: Physical therapy, occupational therapy will work with patient for treatment of spastic muscle and overall myopathy from CVA. (2) Aphasia Status: Acute Additional Information: Speech to work with patient. (3) Hemorrhagic cerebrovascular accident (CVA) Status: Acute Additional Information: Medical to manage Prior Functional Condition Lives With: Spouse Residence Type: Private home/apartment Prior Functional Status: Indep. at home or school Current Functional Status Failed Alternative Therapy Tri: Arrived from acute care Patient Requirements * Patient has been determined to have significant functional limitations requiring at least two therapy disciplines. * Rehabilitation medical practitioner will provide admission approval, assessment and oversight and program coordination at least daily. * Intensive rehabilitative nursing services on site and available 24 hours a day. * The treatment plan will be developed within 24 hours of admission. * Interdisciplinary and goal oriented treatment by professional nursing, social media strategist, and rehabilitation therapist. * Interdisciplinary team meeting weekly inclusive of ongoing comprehensive discharge planning. First team meeting by day seven. Weekly meetings to follow. * Rehab Physician is the team meeting leader. * Pharmacy and diagnostic services will be available. * Ongoing comprehensive rehab program with at least 2 disciplines and greater than or equal to 3 hours a day, 5 days a week. Limitations require: mobility impairment, ADL impairment, cognitive impairment Speech Therapy Minutes: 60 Physical Therapy Minutes: 60 Occupational Therapy Minutes: 60 Therapy The patient is to receive therapy at least 5 days a week. Current Functional Status: Using assistive device PT Treatment Plan: Therapeutic Exercise, Gait Training, Functional Activities , Patient/Family Education, Balance/Proprioception Treatment Plan Frequency: five times per week Treatment Plan Duration: two weeks Plan of Care Comment: 6x per week for 1 week, 5x per week for remaining weeks. OT Treatment Plan: ADL's (basic care), Ther. Exercise for ADL's, UE Functional Training, Pt./Family Education OT Treatment Plan Frequency: five times per week OT Treatment Plan Duration: three weeks ROM Comment: B/L DF slightly limited, increased tone in B/L LEs, R LE DF induces clonus. Some movement seen in L LE, while sitting at EOB. Passively B/L LEs WNL Sulcus sign in R UE > L UE. See OT for UEs. Muscle Weakness Location: Left Lower Extremity, Right Lower Extremity Complication/Comorbidities Patient Complication Risk: (1) Myoclonus Status: Acute Comments: Physical therapy, occupational therapy will work with patient for treatment of spastic muscle and overall myopathy from CVA. (2) Aphasia Status: Acute Comments: Speech to work with patient. (3) Hemorrhagic cerebrovascular accident (CVA) Status: Acute Comments: Medical to manage Impact on Functional Outcomes Patient will require intense physical therapy/occupational therapy/speech therapy. She will definitely have impact and difficulty returning to prior CVA function Barriers to Discharge: weakness, endurance, balance, medical stability Plan to Avoid Complications Plan to Avoid Complications The patient cannot receive this care in a lesser intensive setting such as [facility] or Outpatient Therapy due to the patient requiring the following CVA, right-sided weakness, Pseudomonas pneumonia The patient requires oversight by a rehabilitation physician to manage their rehabilitation treatment plan and the multidisciplinary approach to care that can only be provided in an IRF and requires a multidisciplinary approach to care , provided by professional PTs, OTs, STs, dieticians, RTs, rehabilitation nurses and is not available in lesser levels of care. The frequency and duration for therapy, as recommended by the professional Rehabilitation therapists, meet the patient's initial rehabilitation treatment plan needs and will be further evaluated on a weekly basis for progress and/or changes needed. KELSEY STEEN MD Aug 17, 2016 14:04
[2016-08-17] MEDS ORDERED: DOCU-175 PO (22:49)
--- NOTE | 2016-08-18 13:32 | DI ---
Indication: ITS.REASON: Altered MS PROCEDURE: CT HEAD W/O CONTRAST: Encounter: Initial Comparison: July 25, 2016 Technique: Axial CT images through the head were performed without contrast. Iterative Reconstruction dose reducing technique was utilized. FINDINGS: The prior area of acute hemorrhage in the left thalamus and basal ganglia has decreased in size with an area of subacute hemorrhage remaining measuring 2 cm in diameter. No definite new hemorrhage compared to the prior study. Extensive periventricular white matter microvascular ischemic disease. Evidence of a recently placed right frontal approach ventriculostomy catheter which has been removed leaving calcifications along its tract. Some residual hemorrhage within the posterior aspect of the lateral ventricles bilaterally, also decreased from the prior. Decreasing midline shift compared to the prior exam. No acute calvarial fracture. Impression: Resolving left thalamic and basal ganglia area hemorrhage. Decreasing intraventricular blood. No definite new hemorrhage or obvious territorial infarct. There is a preliminary report by [facility]. .
[2016-08-22] MEDS ORDERED: PredniSONE 10 MG TABLET PO SCH (08:00)
[2016-08-29] MEDS ORDERED: PredniSONE 20 MG TABLET PO SCH (08:00)
== END 2016-08-17 10:15 | disposition short-term general hospital (02) | DRG 93 ==
PROVIDERS: ADMIT Family Medicine; ATTEND Family Medicine
DX: G25.3 Myoclonus (principal); I69.220 Aphasia following other nontraumatic intracranial hemorrhage; R20.0 Anesthesia of skin; I10 Essential (primary) hypertension; E78.5 Hyperlipidemia, unspecified; N80.9 Endometriosis, unspecified; Z86.19 Personal history of other infectious and parasitic diseases; Z79.4 Long term (current) use of insulin; Z79.52 Long term (current) use of systemic steroids; Z79.82 Long term (current) use of aspirin
CPT/HCPCS: 36415; 80048; 82140; 82803; 85025

== ENCOUNTER 2016-08-17 10:19 | Inpatient (IN) | payer BC ==
[~2016-08-17] VITALS: Ht 162.6 cm; Wt 50.6 kg
[2016-08-17] VITALS (47 sets, daily range): BP systolic 101–157; BP diastolic 56–92; PULSE 63–76; RESP 10–54; TEMP 97.8–98; O2SAT 95–99; Ht 162.6 cm; Wt 50.6 kg
--- NOTE | 2016-08-17 10:15 | NUR ---
ADMISSION TO CCU FROM IRU. PT TRANSPORTED BY BED. PT RECEIVED BY CHARGE NURSE, Lizbet MAJOR RN.
[~2016-08-17 10:19] MED LIST changes: +ACET160L13 PO; +AMLO10TA2 PO; +ASPI81TA2 PO; +ATOR40TA64 PO; +BACL10TA PO; +BISA10SU8 RECTALLY; +CITA20TA9 PO; +CLON0.1T PO; +DEXT38GE PO; +ENOX40DI8 SQ; +GLUC1KIT IM; +HYDR20VI7 IV; +HYDR20VI7 PO; +INSU100V SQ; +LISI10TA7 PO; +MAGN400O4 PO; +METF500T4 PO; +METO100T5 PO; +NITR0.4T39 SL; -NO ROUTINE MEDS; +ONDA4SOL PO; +ONDA4VIA23 IV; +PANT40TA27 PO; +POLY17PO6 PO; +PRED10TA PO; +PRED20TA PO; +TAMS0.4C47 PO; +[UNRECOGNIZED DRUG - CODE] IV
[2016-08-17] MEDS ORDERED: DEXAMETHASONE 4mg/ml - 1ml INJECTION IV ONE (11:15)
[2016-08-17] MEDS: NORMAL SALINE 1,000 ML IV SCH ×2 (11:21→21:46)
--- NOTE | 2016-08-17 11:43 | PNPDOC ---
Progress Note Date 08/17/16 I was called by my nurse practitioner Rody to come and see the patient emergently this morning. She stated the patient was unresponsive even to sternal rub. On my arrival vital signs showed blood pressure 120/67, O2 sat 96% on room air, heart rate of 71. She was not febrile. She wasn't responsive to sternal rub. She was breathing shallowly. Chest was clear to auscultation. Cardiovascular reveals a regular rate and rhythm. Abdomen is soft and nontender and nondistended with positive bowel sounds. Extremities free of edema. Skin warm and dry and without rashes. Stat CT head was obtained and the patient was transferred to CCU. CT head shows 2.2 cm left thalamic hemorrhage with surrounding edema. She was noted to have a previous left thalamic hemorrhage on CT scan. Also seen was decompression of the hemorrhage into the ventricular system with bilateral intraventricular hemorrhage. On reviewing reports of MRI and CT from [facility] I do not see report of bilateral intraventricular hemorrhage. I spoke with the radiologist at [facility] regarding the CT and she said that there might be more mass effect at one level. Addendum to her note is pending. Because of concern for acute stroke, the stroke tele-neurologist was consulted. I spoke with him regarding the patient's clinical history and he stated she was not a candidate for TPA. He recommended can sit during an EEG and holding baclofen. I did call and update the patient's regarding her status and he is on his way. He did state the patient was having episodes of excessive somnolence and unresponsiveness the past few days at [facility]. I then called and spoke with one of the nurse practitioners for the neuro intensive care at [facility]. She stated that the patient had been having episodes of drowsiness the last several days but was not unresponsive to sternal rub. CT head images are being transferred so that they can be viewed by her [place] physicians who have been caring for her and compared to previous CT/ MRI at [place]. Consider transfer to [facility]. ABG was obtained and shows pH 7.51, PCO2 39, PO2 79 on room air Chest x-ray was obtained and on my read shows no acute findings in the chest, she does have some air-filled what appears to be: In the left upper quadrant. On exam abdomen is soft and nontender and nondistended with positive bowel sounds. Further decisions will depend upon recommendations from neuro-mortgage clerk at [facility] after they review her CT this morning. EDUARD GARCIA MD Aug 17, 2016 11:42
--- NOTE | 2016-08-17 12:06 | NUR ---
ACTIVITY PT OBSERVED TO RETRACT BILATERAL HANDS. RN UNABLE TO ELICIT RESPONSE FROM VERBAL AND STERNAL RUB. PT OBSERVED TO RETRACT LEFT HAND. RN UNABLE TO ELICIT RESPONSE FROM VERBAL COMMAND TO PT TO SQUEEZE RN HAND. WILL CONTINUE TO MONITOR.
[2016-08-17 13:36] LABS: BLOOD, URINE NEGATIVE (NEGATIVE); COLOR,URINE YELLOW (YELLOW); LEUKOCYTE ESTERASE ,URINE NEGATIVE (NEGATIVE); NITRITE,URINE NEGATIVE (NEGATIVE); UROBILINOGEN,URINE 0.2 EU/DL (NORMAL)
--- NOTE | 2016-08-17 14:00 | NUR ---
ACTIVITY PT OPENED EYES TO 'S VOICE. PT OBSERVED TO STARE INTO RN EYES, WITHOUT BLINKING, WHILE RN PERFORMED NIH ASSESSMENT. PT DID NOT MOVE EYES TO FOLLOW COMMANDS/ACTIVITY. PT IS NOT MOVING LIMBS AT THIS TIME. RECEIVED AUTHORIZATION FROM DR. GARCIA TO TRY ICE CHIPS WITH PT. FED PT ICE CHIPS WHILE RN OBSERVED. PT WAS OBSERVED TO "CRUNCH" ICE WITH 'S ENCOURAGEMENT. AT BEDSIDE SHARING MESSAGES AND VIDEOS, VERBALIZING TO PT. PT IS OBSERVED TO LOOK AT FOR EXTENDED PERIODS OF TIME.
[2016-08-17] MEDS ORDERED: ONDANSETRON 4mg/5ml ORAL SOLN PO PRN (14:15)
[2016-08-17] MEDS ORDERED: NITROGLYCERIN 0.4 MG SUBLINGUAL TABLET SL PRN (14:15)
[2016-08-17] MEDS ORDERED: INSULIN LISPRO 100 UNIT/ML SQ SCH (14:15)
[2016-08-17] MEDS ORDERED: ACETAMINOPHEN 325 MG TABLET PO PRN (14:15)
[2016-08-17] MEDS ORDERED: BISACODYL 10 MG SUPPOSITORY RECTALLY PRN (14:15)
[2016-08-17] MEDS ORDERED: POLYETHYL.GLYCOL 3350 PACKET 17gm PO PRN (14:15)
[2016-08-17] MEDS ORDERED: GLUCOSE ORAL GEL 40% 37.5 G TUBE PO PRN (14:15)
[2016-08-17] MEDS ORDERED: ONDANSETRON 4mg/2ml INJECTION IV PRN (14:15)
[2016-08-17] MEDS ORDERED: GLUCAGON 1 MG INJECTION IM PRN (14:15)
[2016-08-17] MEDS ORDERED: LABETALOL 20mg/4ml INJECTION IV PRN (14:15)
[2016-08-17] MEDS ORDERED: MILK OF MAGNESIA 30 ML SUSP PO PRN (14:15)
[2016-08-17] MEDS: CLONIDINE 0.1 MG TABLET PO SCH ×2 (15:04→20:42)
[2016-08-17] MEDS: BACLOFEN 10 MG TABLET PO SCH ×2 (15:04→20:58)
--- NOTE | 2016-08-17 15:15 | NUR ---
ACTIVITY RECEIVED AUTHORIZATION FROM DR. GARCIA TO GIVE PT PUDDING. PLACED THREE BITES WITH PT, AND USED ICE CHIP TO HELP PT CHEW AND SWALLOW. PO MEDICATIONS CRUSHED AND PLACED IN TWO BITES OF PUDDING. PT TOOK MEDICATION WITH PUDDING, USING ICE CHIPS TO PROMOTE CHEW/SWALLOW. PT DOES NOT FOLLOW RN OR MOVEMENT WITH EYES.
--- NOTE | 2016-08-17 15:54 | HPPDOC ---
SILVIAGAYLA Louis FIELD OPERATIONS SUPERVISOR 08/17/16 1458: HPI - Adult Date DATE: 08/17/16 TIME: 14:51 General Chief Complaint: Altered mental status History of Present Illness HPI - Adult Date DATE: 08/16/16 TIME: 16:07 General History of Present Illness Patient is a 51-year-old female who was brought to [facility] emergency room on 07/25/16 for sudden onset of expressive aphasia. She was found extremely hypertensive at that time 275/[address] scan revealed an acute intraparenchymal hemorrhage CVA with 6mm left to right midline shift. She was also found to have numerous scattered areas of ischemia and multiple intracranial vascular territories likely embolic. She was transferred acutely to [facility] where she has been for the past 3 weeks. During her stay at [facility] she was placed on the ventilator due to acute respiratory failure and subsequently developed ventilator associated pneumonia, Pseudomonas and was extubated on 08/08/16. Sputum culture was positive for Pseudomonas Aeruginosa and Ecoli on 08/06/16 and she has completed her antibiotic course. She has been on Norvasc 10 milligrams daily, clonidine 0.1 milligrams 3 times a day, hydralazine 20 milligrams every 4 hours, lisinopril 10 milligrams daily, metoprolol 200 milligrams twice a day along with when necessary hydralazine and labetalol for aggressive blood pressure control. She underwent a 4 vessel angio on 08/01/16 revealing scattered areas of vascular irregularity suspicious for vasculitis, she was then placed on steroids. Her ANCA (Anti- neutrophil Cytoplasmic antibody) was found to be negative. . She did have hydrocephalus with elevated opening pressure and EVD was placed on 08/02, this was removed on . She was placed on Seroquel several days ago in attempt to assist with sleeping however it was significantly sedating and affected her verbal response, as well as ability to work with therapy. This was discontinued prior to discharge. 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 She was seeking natural pathic treatments and medications for her symptoms as well as blood pressure prior to this event. Mojgan is seen today for initial examination on arrival to the rehabilitation unit. She is alert with her eyes open and makes eye contact during examination, however, is nonverbal. She will smile briefly and is able to squeeze with left hand and wiggle the right toes. Otherwise, unable to follow commands. 08/17/2016- Patient developed acute mental status change and became unresponsive to deep painful stimuli in the IRU. Due to concern for recurrence of acute intracranial pathology, a stat CT of the head was obtained, and compared to prior imaging. Please see notes from both Dr. Fernandez and myself re: extended critical care time. Dr. Fernandez was able to touch base with physician at [facility], who confirmed CT today with prior imaging. They did not feel that this was much different from prior testing. Past medical records from [facility] were reviewed carefully during today's events. Will continue to monitor in ICU at this point. Past Medical History Past Medical History Left thalamus bleed with mass effect and midline shift. 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 Superficial thrombus of the right cephalic vein from forearm to distal wrist 08/08/16 Hydrocephalus Ventilator associated pneumonia, Pseudomonas positive-08/08/16 Hyperlipidemia Hypertension Endometriosis Surgical History Patient's Surgical History: 08/02/16- EVD drain place, removed on 08/05/16- for treatment of Hydrocephalus [id number] Current Medications Home Meds Reported Medications Tamsulosin HCl (Tamsulosin HCl) 0.4 Mg Cap.er.24h, 0.4 MG PO HS 08/16/16 Glucagon,Human Recombinant (Glucagon Emergency Kit) 1 Mg/Kit Syringe, 1 MG IM O Y for HYPOGLYCEMIA 08/16/16 Metformin HCl (Metformin HCl) 500 Mg Tablet, 500 MG PO BIDWM 08/16/16 Insulin Lispro (Humalog) 100 Unit/Ml Inj, 1 UNIT SQ PRN 08/16/16 Prednisone (Prednisone) 20 Mg Tablet, 20 MG PO WB start 09/05/16 08/16/16 Prednisone (Prednisone) 10 Mg Tablet, 30 MG PO WB start 08/22/16 08/16/16 Prednisone (Prednisone) 20 Mg Tablet, 40 MG PO WB 08/16/16 Pantoprazole Sodium (Pantoprazole Sodium) 40 Mg Tablet., 40 MG PO HS 08/16/16 Ondansetron HCl (Ondansetron HCl) 4 Mg/5 Ml Solution, 4 MG PO Q6H Y for NAUSEA & /OR VOMITING 08/16/16 Ondansetron HCl/Pf (Ondansetron HCl 4 mg/2 ml Vial) 4 Mg/2 Ml Vial, 4 MG IV Q6H Y for NAUSEA &/OR VOMITING 08/16/16 Polyethylene Glycol 3350 (Miralax) 17 Gm Powd.pack, 17 G PO BID Y for CONSTIPATION 08/16/16 Bisacodyl (Bisacodyl) 10 Mg Supp.rect, 10 MG RECTALLY BID Y for CONSTIPATION 08/16/16 Magnesium Hydroxide (Milk of Magnesia) 400 Mg/5 Ml Oral.susp, 30 ML PO HS Y for CONSTIPATION 08/16/16 Dextrose (Glucose Gel) 38 Gm Gel..gram., 15 GM PO O Y for HYPOGLYCEMIA 08/16/16 Citalopram Hydrobromide (Citalopram HBr) 20 Mg Tablet, 20 MG PO HS 08/16/16 Acetaminophen (Acetaminophen) 160 Mg/5 Ml Liquid, 650 MG PO Q4H Y for PAIN/FEVER 08/16/16 Aspirin (Aspirin) 81 Mg Tab.chew, 81 MG PO DAILY 08/16/16 Lisinopril (Lisinopril) 10 Mg Tablet, 10 MG PO DAILY 08/16/16 Amlodipine Besylate (Amlodipine Besylate) 10 Mg Tablet, 10 MG PO DAILY 08/16/16 Metoprolol Tartrate (Metoprolol Tartrate) 100 Mg Tablet, 200 MG PO BIDWM 08/16/16 Labetalol HCl (Labetalol HCl) 20 Mg/4 Ml Syringe, 10 MG IV Q2H Y for PRN ORDERS 08/16/16 Nitroglycerin (Nitroglycerin) 0.4 Mg Tab.subl, 0.4 MG SL Q5M Y for CHEST PAIN 08/16/16 Hydralazine HCl (Hydralazine HCl) 20 Mg/1 Ml Vial, 20 MG PO Q4H 08/16/16 Clonidine HCl (Clonidine HCl) 0.1 Mg Tablet, 0.1 MG PO TID 08/16/16 Hydralazine HCl (Hydralazine HCl) 20 Mg/1 Ml Vial, 10 MG IV Q2H Y for PRN ORDERS 08/16/16 Atorvastatin Calcium (Atorvastatin Calcium) 40 Mg Tablet, 40 MG PO HS 08/16/16 Enoxaparin Sodium (Enoxaparin Sodium) 40 Mg/0.4 Ml Syringe, 40 MG SQ DAILY 08/16/16 Baclofen (Baclofen) 10 Mg Tablet, 10 MG PO TID 08/16/16 Allergies: Coded Allergies: codeine (Unverified Allergy, Unknown, 08/17/16) Family History Family History: Mother-hypertension, CVA at age 76 Social History Does patient use chewing tobac: No Second Hand Exposure: No Substance Use Type: does not use Alcohol Intake: none Marital Status: Sexuality: male partner Housing: house Advance Directives: Yes Full Code Review of Systems Unable to Obtain ROS Due to: clinical condition Comments Unresponsive. Collateral information obtained from records. Physical Exam General General Nourishment: apparent age, adult General Body Habitus: disheveled, other (Appears ill- skin sallow/icteric. ) Vital Signs Vital Signs Date Time Temp Pulse Resp B/P Pulse Ox O2 Delivery O2 Flow Rate FiO2 08/17/16 12:08 75 32 08/17/16 11:45 115/68 97 Room Air 08/17/16 10:15 98.0 Height (Feet): 5 Height (Inches): 4.00 Telemetry Rhythm: Sinus Rhythm Eyes Brief: NOT FOUND: EOMI, scleral icterus Comments Pupils 2mm bilaterally, eyes deviated upward. ENMT Brief: NOT FOUND: mucosa moist Neck Brief: FOUND: midline, NOT FOUND: JVD, nuchal rigidity, spasm Respiratory Brief: FOUND: clear all [place], equal bilaterally, symmetrical, NOT FOUND: rales, wheezes Comments Occasional apneic periods. Shallow respirations. Cardiovascular (brief) Cardiac Brief: FOUND: regular rate, regular rhythm, NOT FOUND: murmur, pedal edema Abdomen (brief) Abdominal Brief: FOUND: soft, NOT FOUND: BS normo active x4 (Quiet x 4 quadrants. ), distended, tender (brief) Comments Dubose- clear dark yellow urine. Musculoskeletal (brief) Musculoskeletal Brief: FOUND: loss of motion (Early contractures left hand. ) Integumentary (brief) Integumentary Brief: FOUND: dry, warm, NOT FOUND: pink Neurologic (brief) Neurological Brief: NOT FOUND: cranial 2-12 intact, motor, sensory Comments Unresponsive to deep sternal rub, deep pressure to cuticle. Unresponsive to calling her name, shaking gently. Extremities flaccid with picking them up. Left sided contracture of hand. Neurologic RN Documented GCS Eye Opening: Verbal: Motor: Total: Psychiatric (brief) NOT FOUND: alert, attentive, oriented Laboratory Laboratory Tests Test 08/17/16 13:31 Urine Collection Type Dubose indwelling Urine Color Yellow Urine Turbidity Cloudy Urine pH 7.5 Urine Specific [place] 1.010 Urine Protein Negative Urine Glucose (UA) Negative Urine Ketones Negative Urine Blood Negative Urine Nitrite Negative Urine Bilirubin Negative Urine Urobilinogen 0.2EU/DL Urine Leukocyte Esterase Negative Urinalysis Comment Microscopic not ind. Radiology CT of head- bleed 2.2cm. Blood in both ventricles. Extensive edema. CXR: No acute infiltrate. Some atelectasis. Gaseous distention LUQ. (I interpreted this film). CT head 07/25- 2.5cm x 3.1cm Left thalamic and osorio radiate parenchymal hemorrhage with mild mass effect on Left lateral ventricle with 6mm Left to Right Midline shift. Mild ventriculomegaly. CTA Head 07/25- Left Thalamic hemorrhage with active extravasation into hemorrhage with extension in the Lt. Lateral ventricle + mild ventricular dilation. CT head 07/27- Stable from prior head CT MRI Brain 07/30- Stable L thalamic hemorrhage with extension into the ventricular system resulting in hydrocephalus. Numerous scattered areas of diffusion with restriction suggesting punctate areas of ischemia into multiple vascular territories suggesting embolic disease. Multiple lacunar infarcts and focal areas of encephalomalacia involving cerebral hemispheres, basal ganglia, and right thalamus c/w chronic infarcts. MRI C Spine 07/30- Extensive abnormal signal throughout ligamentum nuchae and numerous interspinous ligaments suggesting ligamentous injury. MRI T Spine 07/31- Negative. Small posterior central disc extrusion at the T7-8 level with caudal migration of the disc material and minimal spinal canal narrowing. MRI L Spine 07/31- Layering fluid level in the thecal sac in sacral spinal canal represents SAH. LP 08/01- opening pressure 30. EVD placed by NS 08/02- 08/05/16. 4V angiogram (08/01)- scattered areas of vascular irregularity suspicious for vasculitis (ANCA negative). Carotids widely patent. PHILIPP negative (Estevan); negative bubble study EF 60%. CT C/A/P- No evidence of dissection, aortic changes, bladder distended. Negative for adrenal mass or paraganglioma. Renal sono: Negative for SYEDA Concerns For Adverse Events High risk. Assessment & Plan Problems: (1) Altered mental status Status: Acute Qualifiers: Altered mental status type: somnolence Qualified Codes: R40.0 - Somnolence Assessment & Plan: Neurology appt Dr. Diez 08/27/16 @ 0930; Scheduled with Dr. Acevedo 09/23/16 @ 10:30 am. (2) ICH (intracerebral hemorrhage) Status: Chronic Qualifiers: Intracerebral hemorrhage etiology: nontraumatic Cerebral hemorrhage location: other cerebral location Laterality: left Qualified Codes: I61.8 - Other nontraumatic intracerebral hemorrhage Assessment & Plan: Left Thalamic bleed with mass effect. 4V angiogram is scheduled at [facility] 09/02/16 @ 0930, arrive 45 min early (3) Embolic stroke Status: Chronic Qualifiers: Precerebral and cerebral artery: unspecified precerebral artery Qualified Codes: I63.10 - Cerebral infarction due to embolism of unspecified precerebral artery Assessment & Plan: Multiple sites. (4) VAP (ventilator-associated pneumonia) Status: Resolved Assessment & Plan: Initial: Staph Aureus/Beta hemolytic strep Second: PSA/E.Coli (5) Urinary retention Status: Chronic Assessment & Plan: Did not tolerate Dubose removal. (6) Resistant hypertension Status: Acute Assessment & Plan: Concern for Pheochromocytoma. Consult for Dr. Yepez ( Med- Endocrine) Seen by Dr. Mark Castrejon at [facility] (7) Malnutrition Status: Chronic (8) Hydrocephalus Status: Resolved Assessment & Plan: s/p EVD 07/29/16-08/05/16 ([place]) Follow up with Dr. Hopkins in 6-[address] scan prior to visit. (9) History of Rafa-Lyles virus infection Status: Resolved Assessment & Plan: Mar 2016 (10) Vasculitis Assessment & Plan: Possible- R/O. (11) Hypertonia Status: Acute Assessment 08/17/16- Paty *Thalamic ICH/SAH- Extensive hospitalization. AMS concerning for recurrence. Case discussed by Dr. Fernandez with tele-stroke team, [facility] staff previously caring for patient, vRAD. Continue current plan of care. Pt. did wake up after decadron- unclear if this is more due to edema or medication related. Decreased dose of baclofen (spasticity). Recent increase in Celexa- may need to decrease or hold. If persistent, recurrent AMS, consider change from prednisone to Decadron IV. *Embolic stroke, concerning for vasculitis- Prednisone taper. Has a follow up angiogram scheduled to reassess. ANCA was negative. Assess GENE, C3/C4, ESR to R/O lupus related vasculitis. ASA, Statin. *Resistant HTN- concern for Pheochromocytoma. Recheck VMA, Urine catecholamines & metanephrines 24 hour urine. Orders entered. If positive, may need MIBG scan. Dr. Yepez follow up- endocrine or consult local. Continue current. We may need to replace DHT if unable to get oral meds down. Avoid excessive lowering- hold Clonidine if SBP less than 140. *Malnutrition- Start calorie count. Consult dietary. May need to place feeding tube to supplement. She appears quite underweight. Assess preAlbumin for starting point today. Only feed if awake and able to tolerate PO. Add supportive IVF for hydration. Avoid dextrose containing solutions if possible due to stroke, cerebral edema. Check Mag, Phos in AM. Check B12, Folate. *VAP- CXR appears ok. Continue to monitor. Has completed treatment on 08/16/16. *Urinary retention- Continue Dubose, Flomax. UA ok. *Hyperglycemia- likely related to steroids. Assess BG. Continue metformin BID for now. *Hx of hydrocephalus- films reviewed by [facility] team. *DVT px- LMWH Code status: full code. DVT Prophylaxis: Lovenox Code Status Full Code Hospital Course Summary Disclaimer The hospital course summary below is not to be considered part of the above Progress Note. Hospital Course Summary 08/17/16- Paty *Thalamic ICH/SAH- Extensive hospitalization. AMS concerning for recurrence. Case discussed by Dr. Fernandez with tele-stroke team, [facility] staff previously caring for patient, vRAD. Continue current plan of care. Pt. did wake up after decadron- unclear if this is more due to edema or medication related. Decreased dose of baclofen (spasticity). Recent increase in Celexa- may need to decrease or hold. If persistent, recurrent AMS, consider change from prednisone to Decadron IV. *Embolic stroke, concerning for vasculitis- Prednisone taper. Has a follow up angiogram scheduled to reassess. ANCA was negative. Assess GENE, C3/C4, ESR to R/O lupus related vasculitis. ASA, Statin. *Resistant HTN- concern for Pheochromocytoma. Recheck VMA, Urine catecholamines & metanephrines 24 hour urine. Orders entered. If positive, may need MIBG scan. Dr. Yepez follow up- endocrine or consult local. Continue current. We may need to replace DHT if unable to get oral meds down. Avoid excessive lowering- hold Clonidine if SBP less than 140. *Malnutrition- Start calorie count. Consult dietary. May need to place feeding tube to supplement. She appears quite underweight. Assess preAlbumin for starting point today. Only feed if awake and able to tolerate PO. Add supportive IVF for hydration. Avoid dextrose containing solutions if possible due to stroke, cerebral edema. *VAP- CXR appears ok. Continue to monitor. Has completed treatment on 08/16/16. *Urinary retention- Continue Dubose, Flomax. UA ok. *Hyperglycemia- likely related to steroids. Assess BG. Continue metformin BID for now. *Hx of hydrocephalus- films reviewed by [facility] team. *DVT px- LMWH Code status: full code. EDUARD FERNANDEZ MD 08/17/162053: Past Medical History Current Medications Home Meds Reported Medications Tamsulosin HCl (Tamsulosin HCl) 0.4 Mg Cap.er.24h, 0.4 MG PO HS 08/16/16 Glucagon,Human Recombinant (Glucagon Emergency Kit) 1 Mg/Kit Syringe, 1 MG IM O Y for HYPOGLYCEMIA 08/16/16 Metformin HCl (Metformin HCl) 500 Mg Tablet, 500 MG PO BIDWM 08/16/16 Insulin Lispro (Humalog) 100 Unit/Ml Inj, 1 UNIT SQ PRN 08/16/16 Prednisone (Prednisone) 20 Mg Tablet, 20 MG PO WB start 09/05/16 08/16/16 Prednisone (Prednisone) 10 Mg Tablet, 30 MG PO WB start 08/22/16 08/16/16 Prednisone (Prednisone) 20 Mg Tablet, 40 MG PO WB 08/16/16 Pantoprazole Sodium (Pantoprazole Sodium) 40 Mg Tablet., 40 MG PO HS 08/16/16 Ondansetron HCl (Ondansetron HCl) 4 Mg/5 Ml Solution, 4 MG PO Q6H Y for NAUSEA & /OR VOMITING 08/16/16 Ondansetron HCl/Pf (Ondansetron HCl 4 mg/2 ml Vial) 4 Mg/2 Ml Vial, 4 MG IV Q6H Y for NAUSEA &/OR VOMITING 08/16/16 Polyethylene Glycol 3350 (Miralax) 17 Gm Powd.pack, 17 G PO BID Y for CONSTIPATION 08/16/16 Bisacodyl (Bisacodyl) 10 Mg Supp.rect, 10 MG RECTALLY BID Y for CONSTIPATION 08/16/16 Magnesium Hydroxide (Milk of Magnesia) 400 Mg/5 Ml Oral.susp, 30 ML PO HS Y for CONSTIPATION 08/16/16 Dextrose (Glucose Gel) 38 Gm Gel..gram., 15 GM PO O Y for HYPOGLYCEMIA 08/16/16 Citalopram Hydrobromide (Citalopram HBr) 20 Mg Tablet, 20 MG PO HS 08/16/16 Acetaminophen (Acetaminophen) 160 Mg/5 Ml Liquid, 650 MG PO Q4H Y for PAIN/FEVER 08/16/16 Aspirin (Aspirin) 81 Mg Tab.chew, 81 MG PO DAILY 08/16/16 Lisinopril (Lisinopril) 10 Mg Tablet, 10 MG PO DAILY 08/16/16 Amlodipine Besylate (Amlodipine Besylate) 10 Mg Tablet, 10 MG PO DAILY 08/16/16 Metoprolol Tartrate (Metoprolol Tartrate) 100 Mg Tablet, 200 MG PO BIDWM 08/16/16 Labetalol HCl (Labetalol HCl) 20 Mg/4 Ml Syringe, 10 MG IV Q2H Y for PRN ORDERS 08/16/16 Nitroglycerin (Nitroglycerin) 0.4 Mg Tab.subl, 0.4 MG SL Q5M Y for CHEST PAIN 08/16/16 Hydralazine HCl (Hydralazine HCl) 20 Mg/1 Ml Vial, 20 MG PO Q4H 08/16/16 Clonidine HCl (Clonidine HCl) 0.1 Mg Tablet, 0.1 MG PO TID 08/16/16 Hydralazine HCl (Hydralazine HCl) 20 Mg/1 Ml Vial, 10 MG IV Q2H Y for PRN ORDERS 08/16/16 Atorvastatin Calcium (Atorvastatin Calcium) 40 Mg Tablet, 40 MG PO HS 08/16/16 Enoxaparin Sodium (Enoxaparin Sodium) 40 Mg/0.4 Ml Syringe, 40 MG SQ DAILY 08/16/16 Baclofen (Baclofen) 10 Mg Tablet, 10 MG PO TID 08/16/16 Allergies: Coded Allergies: codeine (Unverified Allergy, Unknown, 08/17/16) Assessment & Plan Assessment 08/17/2016-I reviewed this chart, the patient history, and the FIELD OPERATIONS SUPERVISOR's/PA's documented findings as above. We discussed and formulated the assessment and plan as above with the additions below.-Dr. Fernandez Please see my free text progress note from earlier this morning. I did speak with Dr. Pollard neuro-tool specialist at [facility] this morning. He was able to review our CAT scan done this morning and compare it to previous brain imaging from [facility] during her stay. He stated that he did not see any changes. By the time I spoke with him the patient was awakening and starting to be responsive. Her vital signs remained stable during this episode of unresponsiveness. The patient's stated that she was having episodes of extreme fatigue and unresponsiveness at [facility] as well. The patient had received baclofen prior to becoming unresponsive and we will decrease this dose and see if she can stay more responsive. I did go back to evaluate the patient this evening and her nurse stated she had been more alert today and even said "okay" today. She has been eating and drinking well and vitals have remained stable. We will continue to monitor in ICU overnight and possibly transfer back to inpatient rehabilitation tomorrow if she remains stable. GAYLA VEGA APRN Aug 17, 2016 14:58 EDUARD FERNANDEZ MD Aug 17, 2016 20:54
[2016-08-17] MEDS ORDERED: METFORMIN 500 MG TABLET PO SCH (17:30)
--- NOTE | 2016-08-17 19:11 | NUR ---
STATUS PT AWAKE AND SITTING UP IN BED, FLOATING ON PILLOWS. VSS. PT EYES FOLLOWING MOVEMENT OUTPUT ADEQUATE. AND RN HELPED PT EAT SUPPER WITH ICE CHIPS AFTER BITES CAUSING PT TO CHEW AND SWALLOW. PT TOLERATED WELL. PT RESTING IN BED, AT BEDSIDE MASSAGING AND STRETCHING PT ARMS.
--- NOTE | 2016-08-17 20:31 | NUR ---
Pt Response Pt's LOC seems to be improving. RN was unable to get any yes/no response from her, however she did verbally respond with an 'ok'. Dr. Fernandez stopped by this evening to check on pt. Updated by this RN. Will continue to monitor.
[2016-08-17] MEDS: TAMSULOSIN 0.4 MG CAPSULE PO SCH (20:51)
[2016-08-17] MEDS: PANTOPRAZOLE 40 MG TABLET PO SCH (20:51)
[2016-08-17] MEDS: ATORVASTATIN 40 MG TABLET PO SCH (20:52)
[2016-08-17] MEDS ORDERED: DOCU-175 PO (22:49)
--- NOTE | 2016-08-17 22:49 | NUR ---
Med Reconciliation Home medication reconciled based off of IRU's eMar/medication administration record.
--- NOTE | 2016-08-17 23:00 | NUR ---
BGM RN contacted physician concerned about BGM of 88. Pt's oral intake is poor. Per physician, will recheck BGM at 0100. If continues to trend down, he may consider adding dextrose to IVF. DC'd scheduled Metformin. Pt had been on tube feedings while at [place]. No history of diabetes. Will monitor closely.
[2016-08-18] VITALS (39 sets, daily range): BP systolic 111–196; BP diastolic 62–101; PULSE 66–92; RESP 11–26; O2SAT 96–99
[2016-08-18 04:27] LABS: HCT - HEMATOCRIT 36.8 % (36-46); HGB - HEMOGLOBIN 12.2 GM/DL (12-16); MEAN CORPUSCULAR HGB 31.4 UUG (26-34); MEAN CORPUSCULAR HGB CONC(MCHC 33.2 GM/DL (31-37); MEAN CORPUSCULAR VOLUME 94.6 UM3 (80-100); MEAN PLATELET VOLUME 9.8 UM3 (9.4-12.4); RED BLOOD COUNT 3.89 M/MM3 (4.00-5.20); WBC - WHITE BLOOD COUNT 9.2 T/MM3 (4.5-11.0)
[2016-08-18 04:45] LABS: ALBUMIN 3.6 G/DL (3.5-5.0); ALBUMIN/GLOBULIN RATIO 1.3 RATIO (1.1-2.2); ALKALINE PHOSPHATASE 84 U/L (38-126); ALT (SGPT) 26 U/L (9-52); ANION GAP 10 MEQ/L (5-15); AST (SGOT) 27 U/L (14-36); BUN/CREATININE RATIO 16 RATIO (6-26); CALCIUM 9.1 MG/DL (8.4-10.2); CHLORIDE 101 MEQ/L (98-107); CO2 - CARBON DIOXIDE 25 MEQ/L (22-30); CREATININE 1.5 MG/DL (0.7-1.2); GLOMERULAR FILTRATION RATE 36; GLUCOSE 179 MG/DL (65-110); MAGNESIUM 1.9 MG/DL (1.6-2.3); PHOSPHORUS 3.8 MG/DL (2.5-4.5); POTASSIUM 4.8 MEQ/L (3.6-5); SODIUM 136 MEQ/L (134-144); TOTAL PROTEIN 6.4 G/DL (6.3-8.2)
[2016-08-18 04:52] LABS: PREALBUMIN 33.7 MG/DL (17.6-36.0)
[2016-08-18 05:50] LABS: BAND NEUTROPHILS # 0.2 T/MM3; LYMPHOCYTES # (MANUAL) 1.8 T/MM3 (1-4.8); MONOCYTES # (MANUAL) 0.2 T/MM3 (0-0.8); TOTAL CELLS COUNTED 100 %
--- NOTE | 2016-08-18 08:03 | NUR ---
Shift Summary Pt slept off and on during the night. Continues to give minimal responses to RN's questions/assessments. Blankly stares. Yesterday evening, RN got one verbal acknowledgement from pt and a few nods of the head. However, through the night, was unable to get any visual or verbal responses from pt. Repositioned manually and utilized continuous lateral rotation. Dubose in place. Output adequate. 24 hour urine collection in progress.
[2016-08-18] MEDS: NORMAL SALINE 1,000 ML IV SCH ×2 (08:31→16:09)
[2016-08-18] MEDS: ASPIRIN 81 MG CHEWABLE TABLET PO SCH (08:33)
[2016-08-18] MEDS: PredniSONE 20 MG TABLET PO SCH (08:34)
[2016-08-18] MEDS: AMLODIPINE 10 MG TABLET PO SCH (08:34)
[2016-08-18] MEDS: CLONIDINE 0.1 MG TABLET PO SCH ×3 (08:35→21:08)
[2016-08-18] MEDS: BACLOFEN 10 MG TABLET PO SCH ×3 (08:35→21:08)
[2016-08-18] MEDS ORDERED: NORMAL SALINE 500 ML IV SCH (08:45)
--- NOTE | 2016-08-18 08:59 | PNPDOC ---
Subjective Date DATE: 08/18/16 TIME: 08:44 Subjective The patient is seen in her room today along with her nurse. Reportedly, the patient had a good night and slept fairly well. She has had no further episodes of unresponsiveness since yesterday morning. She has been able to take her pills and eat and drink without difficulty. She said "okay" once last night. She has had no fevers. Urine output has been okay but she has had an increasing creatinine. She has IV fluids running and Dubose in place. Last night she had borderline low blood sugar and metformin was discontinued. Objective Vital Signs Vital signs Vital Signs Date Time Temp Pulse Resp B/P Pulse Ox O2 Delivery O2 Flow Rate FiO2 08/18/16 04:40 79 18 08/18/16 03:00 148/75 96 Room Air 08/17/16 16:05 97.8 I&O 1295/635 yesterday since transfer in the morning Urine output overnight 192 ML's GEN-opens eyes to voice, does track with her eyes, not able to follow commands HEENT-pupils are equal, oropharynx is moist NECK-no JVD CV-regular rate and rhythm CHEST-clear to auscultation bilaterally ABD-soft, nontender, nondistended, mild tympany, normal bowel sounds -urine appears clear, Dubose in place EXT-no edema NEURO-opens eyes to voice, does track with her eyes, does not follow commands, right upper extremity very rigid, left arm much more easily moved passively, mild stiffness in legs bilaterally SKIN-warm and dry without rashes Telemetry Rhythm: Sinus Rhythm Height (Feet): 5 Height (Inches): 4.00 Weight (Kilograms): 50.300 Laboratory Laboratory Laboratory Tests 08/17/16 05:33 08/18/16 04:08 Laboratory Tests 08/18/16 04:08 Liver enzymes are normal, magnesium and phosphorus are normal pre-albumin and B-12 are pending Assessment & Plan Problems: (1) Altered mental status Status: Acute Qualifiers: Altered mental status type: somnolence Qualified Codes: R40.0 - Somnolence Assessment & Plan: Neurology appt Dr. Diez 08/27/16 @ 0930; Scheduled with Dr. Acevedo 09/23/16 @ 10:30 am. (2) ICH (intracerebral hemorrhage) Status: Chronic Qualifiers: Intracerebral hemorrhage etiology: nontraumatic Cerebral hemorrhage location: other cerebral location Laterality: left Qualified Codes: I61.8 - Other nontraumatic intracerebral hemorrhage Assessment & Plan: Left Thalamic bleed with mass effect. 4V angiogram is scheduled at [facility] 09/02/16 @ 0930, arrive 45 min early (3) Embolic stroke Status: Chronic Qualifiers: Precerebral and cerebral artery: unspecified precerebral artery Qualified Codes: I63.10 - Cerebral infarction due to embolism of unspecified precerebral artery Assessment & Plan: Multiple sites. (4) VAP (ventilator-associated pneumonia) Status: Resolved Assessment & Plan: Initial: Staph Aureus/Beta hemolytic strep Second: PSA/E.Coli (5) Urinary retention Status: Chronic Assessment & Plan: Did not tolerate Dubose removal. (6) Resistant hypertension Status: Acute Assessment & Plan: Concern for Pheochromocytoma. Consult for Dr. Yepez ( Med- Endocrine) Seen by Dr. Mark Castrejon at [facility] (7) Malnutrition Status: Chronic (8) Hydrocephalus Status: Resolved Assessment & Plan: s/p EVD 07/29/16-08/05/16 ([place]) Follow up with Dr. Hopkins in 6-[address] scan prior to visit. (9) History of Rafa-Lyles virus infection Status: Resolved Assessment & Plan: Mar 2016 (10) Vasculitis Assessment & Plan: Possible- R/O. (11) Hypertonia Status: Acute Assessment 08/18/2016 Impression Intracranial hemorrhage 3 weeks ago Altered mental status on 08/17/2016-CT head showed no significant changes per Deric neuro-carbon setter, no recurrence of nonresponsiveness baclofen decreased Acute kidney injury with rising creatinine to 1.5 from 0.6 yesterday. This is of uncertain etiology. She is not on any new medications. She has been on normal saline at 100 and hour since yesterday morning. Dubose catheter is in place. Will discontinue lisinopril. Metformin was discontinued last night. We' ll check a renal sonogram and CPK. Will give a 500 cc normal saline bolus over 2 hours. No hypotension yesterday. Blood pressures ranged from 100 systolic to 160 systolic Resistant hypertension-continue current medications are lisinopril. Workup for pheochromocytoma in progress Urinary retention-patient has had Dubose catheter prior to admission at [facility]. She is on Flomax Malnutrition-encourage by mouth intake. Dobbhoff was removed prior to transfer to [facility] Hypertonia-baclofen decreased August 17 due to altered mental status Possible vasculitis-workup in progress Sobxreyjjpycb-[id number] secondary to steroids-metformin discontinued 08/18 Ventilator associated pneumonia [facility]-finished antibiotic treatment Hydrocephalus-status post EVD placement and removal Greater than 45 minutes of critical care time spent seeing and evaluating the patient. DVT Prophylaxis: SCD'S, Lovenox Code Status Full Code Hospital Course Summary Disclaimer The hospital course summary below is not to be considered part of the above Progress Note. Hospital Course Summary 08/17/16- Paty *Thalamic ICH/SAH- Extensive hospitalization. AMS concerning for recurrence. Case discussed by Dr. Fernandez with tele-stroke team, [facility] staff previously caring for patient, Sara. Continue current plan of care. Pt. did wake up after decadron- unclear if this is more due to edema or medication related. Decreased dose of baclofen (spasticity). Recent increase in Celexa- may need to decrease or hold. If persistent, recurrent AMS, consider change from prednisone to Decadron IV. *Embolic stroke, concerning for vasculitis- Prednisone taper. Has a follow up angiogram scheduled to reassess. ANCA was negative. Assess GENE, C3/C4, ESR to R/O lupus related vasculitis. ASA, Statin. *Resistant HTN- concern for Pheochromocytoma. Recheck VMA, Urine catecholamines & metanephrines 24 hour urine. Orders entered. If positive, may need MIBG scan. Dr. Yepez follow up- endocrine or consult local. Continue current. We may need to replace DHT if unable to get oral meds down. Avoid excessive lowering- hold Clonidine if SBP less than 140. *Malnutrition- Start calorie count. Consult dietary. May need to place feeding tube to supplement. She appears quite underweight. Assess preAlbumin for starting point today. Only feed if awake and able to tolerate PO. Add supportive IVF for hydration. Avoid dextrose containing solutions if possible due to stroke, cerebral edema. *VAP- CXR appears ok. Continue to monitor. Has completed treatment on 08/16/16. *Urinary retention- Continue Dubose, Flomax. UA ok. *Hyperglycemia- likely related to steroids. Assess BG. Continue metformin BID for now. *Hx of hydrocephalus- films reviewed by [facility] team. *DVT px- LMWH Code status: full code. 08/17/2016-I reviewed this chart, the patient history, and the SWIFT TENDER's/PA's documented findings as above. We discussed and formulated the assessment and plan as above with the additions below.-Dr. Fernandez Please see my free text progress note from earlier this morning. I did speak with Dr. Pollard neuro-carbon setter at [facility] this morning. He was able to review our CAT scan done this morning and compare it to previous brain imaging from [facility] during her stay. He stated that he did not see any changes. By the time I spoke with him the patient was awakening and starting to be responsive. Her vital signs remained stable during this episode of unresponsiveness. The patient's stated that she was having episodes of extreme fatigue and unresponsiveness at [facility] as well. The patient had received baclofen prior to becoming unresponsive and we will decrease this dose and see if she can stay more responsive. I did go back to evaluate the patient this evening and her nurse stated she had been more alert today and even said "okay" today. She has been eating and drinking well and vitals have remained stable. We will continue to monitor in ICU overnight and possibly transfer back to inpatient rehabilitation tomorrow if she remains stable. EDUARD FERNANDEZ MD Aug 18, 2016 08:50
[2016-08-18] MEDS ORDERED: ENOXAPARIN 40 MG/0.4 ML INJECTION SQ SCH ×2 (09:00)
[2016-08-18] MEDS ORDERED: ENOXAPARIN 30 MG/0.3 ML INJECTION SQ SCH (09:00)
[2016-08-18] MEDS ORDERED: LISINOPRIL 10 MG TABLET PO SCH (09:00)
--- NOTE | 2016-08-18 13:28 | DI ---
Indication: ITS.REASON: AMS PROCEDURE: CHEST 1 VIEW: Encounter: Initial Comparison: None FINDINGS: The lungs are clear. There is no abnormal airspace opacity, pleural effusion or pneumothorax identified. The heart size, pulmonary vasculature and mediastinum are within normal limits. No significant skeletal abnormality is seen. Contrast or high density material in the bowel. IMPRESSION: No acute cardiopulmonary abnormality. .
--- NOTE | 2016-08-18 13:47 | DI ---
Indication: ITS.REASON: sammi PROCEDURE: US RENAL: Encounter: Initial Comparison: None Technique: Grayscale and color Doppler sonographic imaging of both kidneys was performed. FINDINGS: Both kidneys are present with normal cortical thickness and echogenicity. No evidence for collecting system dilatation, contour deforming mass, nephrolithiasis, or abnormal perinephric fluid collection. The right kidney measures 10.9 cm in length, and the left kidney measures 10 cm in length. IMPRESSION: Normal renal sonogram. There is a preliminary report by [facility]. .
--- NOTE | 2016-08-18 13:48 | DI ---
Indication: ITS.REASON: increased bowel gas seen on cxr, no bm PROCEDURE: KUB W/UPRIGHT: Encounter: Initial Comparison: None Findings: Contrast material seen within the colon. Lung bases are grossly clear. No free air identified. Nonobstructive nonspecific bowel gas pattern. No abnormally dilated small bowel appreciated. Contrast appears to be present to the level of the rectum. Impression: Nonobstructive nonspecific bowel gas pattern. .
[2016-08-18 14:56] LABS: ANION GAP 9 MEQ/L (5-15); BUN/CREATININE RATIO 33 RATIO (6-26); CALCIUM 8.9 MG/DL (8.4-10.2); CHLORIDE 110 MEQ/L (98-107); CO2 - CARBON DIOXIDE 24 MEQ/L (22-30); CREATININE 0.6 MG/DL (0.7-1.2); GLOMERULAR FILTRATION RATE 105; GLUCOSE 159 MG/DL (65-110); POTASSIUM 3.8 MEQ/L (3.6-5); SODIUM 143 MEQ/L (134-144)
--- NOTE | 2016-08-18 19:34 | NUR ---
STATUS/CONTRACTURE BOOTS PT ALERT TO PERSON, AWAKE 8 HOURS OF SHIFT. PT ATTEMPTED TO VERBALIZE WITH AND RN. PT HAD INCREASING SMILES THIS SHIFT. VSS. CONTRACTURE BOOTS ROTATED THROUGHOUT SHIFT IN 2 HOUR INTERVALS. THIS WAS ACCORDING TO PT SCHEDULE AT [facility]. RN REVIEWED THIS SCHEDULE WITH DR. GARCIA. DR. GARCIA RESPONDED TO CONTINUE ON THE [place] SCHEDULE. PT DID RANGE OF MOTION EXERCISES WITH PT DURING THE MORNING AND AFTERNOON. THESE EXERCISES ELEVATED PT BP, ONCE COMPLETE, BP WOULD RESOLVE. PT TAKES CRUSHED MEDS IN APPLESAUCE/PUDDING WELL. PT INTAKE WAS 50-75% TODAY WITH PT TOLERATING WELL. PT WAS ENCOURAGED TO CHEW/SWALLOW WITH PIECE OF ICE FOLLOWING BITES, THIS BECAME LESS NECESSARY TOWARD THE END OF SHIFT PT TOOK INSTRUCTION TO CHEW/SWALLOW VERBALLY AT TIMES. NUMEROUS FAMILY/FRIENDS VISITED PT TODAY AND RN OBSERVED PT TO LOOK AT AND WATCH GUESTS. PT IS RESTING IN BED WITH EYES CLOSED, , SISTER AND MESSI AT BEDSIDE.
[2016-08-18] MEDS: ATORVASTATIN 40 MG TABLET PO SCH (21:08)
[2016-08-18] MEDS: TAMSULOSIN 0.4 MG CAPSULE PO SCH (21:08)
[2016-08-18] MEDS: PANTOPRAZOLE 40 MG TABLET PO SCH (21:08)
--- NOTE | 2016-08-18 21:41 | NUR ---
Status Patient is awake and alert. Will respond at times with head and has tried to answer using words but unable. Took crush medications without difficulty. Patient only took a few spoon fulls of the Mighty Shake (nutritional supplement) and didn't want anymore. Oral care provided. has done range of motion, applied cream to skin, and has been rotating boot on the patient.
[2016-08-19] VITALS (62 sets, daily range): BP systolic 108–203; BP diastolic 57–113; PULSE 64–102; RESP 10–20; TEMP 97.7–99.8; O2SAT 95–99
[2016-08-19 02:51] LABS: FOLATE 16.7 NG/ML (2.76-20); VITAMIN B12 - BATCH > 1000 PG/ML (239-931)
[2016-08-19] MEDS: NORMAL SALINE 1,000 ML IV SCH (02:52)
[2016-08-19 04:39] LABS: HCT - HEMATOCRIT 35.4 % (36-46); HGB - HEMOGLOBIN 11.9 GM/DL (12-16); MEAN CORPUSCULAR HGB CONC(MCHC 33.6 GM/DL (31-37); MEAN CORPUSCULAR VOLUME 95.2 UM3 (80-100); MEAN PLATELET VOLUME 9.8 UM3 (9.4-12.4); RED BLOOD COUNT 3.72 M/MM3 (4.00-5.20); WBC - WHITE BLOOD COUNT 6.3 T/MM3 (4.5-11.0)
[2016-08-19 04:48] LABS: ALBUMIN 2.8 G/DL (3.5-5.0); ANION GAP 7 MEQ/L (5-15); BUN/CREATININE RATIO 27 RATIO (6-26); CALCIUM 8.7 MG/DL (8.4-10.2); CHLORIDE 112 MEQ/L (98-107); CO2 - CARBON DIOXIDE 23 MEQ/L (22-30); CREATININE 0.6 MG/DL (0.7-1.2); GLOMERULAR FILTRATION RATE 105; GLUCOSE 96 MG/DL (65-110); PHOSPHORUS 2.6 MG/DL (2.5-4.5); POTASSIUM 3.4 MEQ/L (3.6-5); SODIUM 142 MEQ/L (134-144)
--- NOTE | 2016-08-19 05:36 | NUR ---
High BP/ Status Patient has a current BP of 172/92. PRN Hydralazine was given. This is the second time PRN Hydralazine has been given with minimal effect on patient BP. Patients BP has been in the 160s/80s with scheduled medication and PRN Hydralazine. All other VS are stable. Patient did have a run of Vtac, see chart for print out. Output has been adequate. Patient is of RA with no respiratory distress noted. Patient continues to only be orientated to person and will occasionally shake her head to answer simple questions.
[2016-08-19 06:42] LABS: LYMPHOCYTES # (MANUAL) 1.8 T/MM3 (1-4.8); METAMYELOCYTES # 0.1 T/MM3; MONOCYTES # (MANUAL) 0.1 T/MM3 (0-0.8); MYELOCYTES # 0.1 T/MM3; NEUTROPHILS #(MANUAL)-ABSOLUTE 4.3 T/MM3 (1.8-7.7); TOTAL CELLS COUNTED 100 %
[2016-08-19] MEDS ORDERED: METOPROLOL 5mg/5ml INJECTION IV ONE (06:45)
--- NOTE | 2016-08-19 07:18 | NUR ---
Status BP continues to be high with PRN and scheduled Hydralazine. Notified Dr. Yao and he ordered a one time dose of Lopressor 2.5 IV to be given. Temp is all increased to 99.8 and HR has trended up during the night and is currently in the 90s. Current BP is 168/89. Report was given to on coming nurse.
[2016-08-19] MEDS: POTASSIUM CHLORIDE 10 MEQ TABLET PO SCH ×5 (08:35→17:51)
[2016-08-19] MEDS: ASPIRIN 81 MG CHEWABLE TABLET PO SCH (08:36)
[2016-08-19] MEDS: PredniSONE 20 MG TABLET PO SCH (08:36)
[2016-08-19] MEDS: BACLOFEN 10 MG TABLET PO SCH ×4 (08:43→21:17)
[2016-08-19] MEDS: AMLODIPINE 10 MG TABLET PO SCH (08:43)
[2016-08-19] MEDS: LISINOPRIL 10 MG TABLET PO SCH (08:43)
[2016-08-19] MEDS: CLONIDINE 0.1 MG TABLET PO SCH ×4 (08:43→21:17)
--- NOTE | 2016-08-19 10:21 | NUR ---
Morning Cares Morning cares provided to pt. Bag bath provided. Pt unable to assist. Pt non-verbal during bath, but did appear to make eye contact with staff when talked to. Contracture boot changed legs Q2Hs. Red spot noted to right sacrum. Pt fed breakfast by staff and speech therapy. Took pills well crushed in applesauce. pt appeared to have very delayed swallow, but no s/s of choking noted. Pt followed basic commands like "open mouth" or "squeeze my hands", but was unable to "wiggle toes". BP was very elevated, but has come down since morning medications were given. has just arrived and bedside and updated on this information and how pt's night was. Will continue to monitor.
--- NOTE | 2016-08-19 11:42 | STEVAL ---
Eval Subjective and History Date/Time of Eval DATE: 08/19/16 TIME: 10:00 Medical Diagnosis Left thalamic hemorrhagic CVA, altered mental status, dysphagia. aphasia Treatment Order: Assessment, Dev./Imp. tx plan Orientations: Alert, Cooperative Primary Complaint: ICH, dysphagia, aphasia Date of Onset of Primary Com: 07/26/15 transfer to [place], admission to IRU , transfer to [facility]U 08/18/15 Secondary Complaint: non verbal Patient's Goals: Unable to express Significant Past Medical Hx: Pt suffered intracranial hemorrhage on 07/25/16, spent 3 weeks in [place] and admitted to [facility] 08/17/15. PMH: ICH, emoblic stroke, aphasia, vasculitis, Rafa "Baar virus 2014, hydrocephalus (drain from 08/03/15 to 08/05/16), ventilator associated pneumonia, hyperlipidemia, THN, urinary retention, chronic malnutrition, hypretonia. Medical History Form Reviewed: Yes Residence Type: Private home/apartment Lives With: With Family Caregiver Status: Yes (family suppportive) Prior Functional Status: Tube fed, ventilator associated pneumona Current Functional Status: High risk for aspiraiton Person(s) Educated: Patient Instruction Understanding Demo: Education unsuccessful Education Comment Pt was unable to follow directions or verbalize understanding of information. Subjective and History Comment: Pt was alert and cooperative during assessment. Dysphagia Evaluation Evaluation Location: Bed Evaluation Angle: 90 Dentition: Natural Oral Peripheral Exam Comment: Pt was unable to imitate oral motor movements. Spontaneous movement were limited to smile, grimace when uncomfortable. She demonstrated tonic bite when oral care provided. Lip Seal: Inadequate-liquid (took honey thick liquids well), Adequate-pudding Lingual Manipulation: Inadequate-liquid (poor control on thin, mild on honey) , Adequate-pudding (tolerate well) Oral cavity clear post swallow: Adequate-liquid (minimal residue on honey), Adequate-pudding (mild) Swallow initiated w/o delay: Inadequate-liquid (moderate), Inadequate-pudding ( moderate: chews pudding ) Multiple swallows not needed: Inadequate-liquid (honey), Adequate-pudding Voice clear&dry post swallow: Inadequate-liquid (no voicing elicited), Adequate -pudding, Inadequate-pudding (No vocalization elicited during assessment) Assessment/Plan of Care Speech Therapy Impressions: Pt demonstrated flat affect with no vocalization produced during assessment. Pt was positioned upright in bed for dyshagia assessment. She stared at tv and [employer]CH[employer]ISM DESIGN[employer] and smiled but was unable to follow directions or indicate yes/no. Pt was fed honey thick liquids and pureed food with functional lip closure. Swallow response was delayed 7-10 seconds. Alternating warm/cold bites triggger swallow response. Tactile stimulation applied to lip to improve lip opening. Lingual coordination was reduced. Pt tended to scrape food off with her teeth. Tonic bite noted when cleaning mouth. Custodial Goal: Pt will maintain nutrition and hydration of the least restrictive diet while demonstrating no s/s of aspiration for 3 consecutive trials. Short Term Goal: Pt will consume a pureed diet with honey liquids without outward signs of aspiration in 3/3 of trials. Pt will demonstrate 3/3 components necessary for a safe swallow as listed from the following: prompt swallow, throat clearing, increased mastication. Pt will implement compensatory feeding strategies in 3 feeding trials using small bites,slow rate, alternating solids and liquids. ST Treatment Plan: Swallow Retraining, Swallow Precautions, Modified Diet ST Treatment Plan Frequency: five times per week Treatment Plan Duration: two weeks Plan of Care Comment Swallow retraining Communication evaluation Date of Visit 08/19/16 Time Visit Began: 08:50 Time Visit Ended: 09:30 ST Assess/Plan of Care: ST Treatment Charge: Swallow Eval Minutes of Individual Therapy: 40 ST FIM Comprehension Ability: 1 Total Assistance Social Interaction: 0 Activity Does Not Occur Problem Solvin Activity Does Not Occur Memory: 0 Activity Does Not Occur Expression Ability: 1 Total Assistance Swallowin Maximum Assistance SALEEM REYES MS CCC-SERVOMECHANISM DESIGNER Aug 19, 2016 10:03
--- NOTE | 2016-08-19 12:29 | CONSPD ---
[facility] PATHOLOGY LABORATORY AIDE 08/19/16 1204: Consultation Info Date DATE: 08/19/16 TIME: 12:01 Date of Consultation: Aug 19, 2016 Attending Physician: Eduard Fernandez MD Reason for Consultation: possible NSVT HPI - Adult Date DATE: 08/19/16 TIME: 12:01 General Date of Admission Date of Admission: Aug 17, 2016 at 10:19 Chief Complaint: Altered mental status History of Present Illness Mojgan is a 51-year-old female who was brought to [facility] emergency room on 07/25/16 for sudden onset of expressive aphasia. She was found extremely hypertensive at that time 275/[address] scan revealed an acute intraparenchymal hemorrhage CVA with 6mm left to right midline shift. She was also found to have numerous scattered areas of ischemia and multiple intracranial vascular territories likely embolic. She was transferred acutely to [facility] where she has been for the past 3 weeks. During her stay at [facility] she was placed on the ventilator due to acute respiratory failure and subsequently developed ventilator associated pneumonia, Pseudomonas and was extubated on 08/08/16. Sputum culture was positive for Pseudomonas Aeruginosa and Ecoli on 08/06/16 and she has completed her antibiotic course. She has been on Norvasc 10 milligrams daily, clonidine 0.1 milligrams 3 times a day, hydralazine 20 milligrams every 4 hours, lisinopril 10 milligrams daily, metoprolol 200 milligrams twice a day along with when necessary hydralazine and labetalol for aggressive blood pressure control. She underwent a 4 vessel angio on 08/01/16 revealing scattered areas of vascular irregularity suspicious for vasculitis, she was then placed on steroids. Her ANCA (Anti- neutrophil Cytoplasmic antibody) was found to be negative. . She did have hydrocephalus with elevated opening pressure and EVD was placed on 08/02, this was removed on . She was placed on Seroquel several days ago in attempt to assist with sleeping however it was significantly sedating and affected her verbal response, as well as ability to work with therapy. This was discontinued prior to discharge. 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 She was seeking natural pathic treatments and medications for her symptoms as well as blood pressure prior to this event. Mojgan is seen today for initial examination on arrival to the rehabilitation unit. She is alert with her eyes open and makes eye contact during examination, however, is nonverbal. She will smile briefly and is able to squeeze with left hand and wiggle the right toes. Otherwise, unable to follow commands. 08/17/2016- Patient developed acute mental status change and became unresponsive to deep painful stimuli in the IRU. Due to concern for recurrence of acute intracranial pathology, a stat CT of the head was obtained, and compared to prior imaging. Please see notes from both Dr. Fernandez and myself re: extended critical care time. Dr. Fernandez was able to touch base with physician at [facility], who confirmed CT today with prior imaging. They did not feel that this was much different from prior testing. Past medical records from [facility] were reviewed carefully during today's events. Will continue to monitor in ICU at this point. Past Medical History Unable to Obtain Due to: Clinical Condition Past Medical History Metabolic: hypercholesterolemia, hypertension Respiratory: pneumonia Neurological: CVA Current Medications Home Meds Active Scripts Labetalol HCl (Labetalol HCl) 100 Mg Tablet, 150 MG PO BID for hypertension for 30 Days, #90 TAB Prov:SILVIO DOAN MD 08/20/16 Baclofen (Baclofen) 10 Mg Tablet, 5 MG PO QID for 28 Days, #56 TAB Prov:SILVIO DOAN MD 08/20/16 Reported Medications Docusate Sodium (Docusate Sodium) 100 Mg Capsule, 1 CAP PO BID, #30 CAP 08/17/16 Tamsulosin HCl (Tamsulosin HCl) 0.4 Mg Cap.er.24h, 0.4 MG PO HS 08/16/16 Glucagon,Human Recombinant (Glucagon Emergency Kit) 1 Mg/Kit Syringe, 1 MG IM O Y for HYPOGLYCEMIA 08/16/16 Prednisone (Prednisone) 20 Mg Tablet, 20 MG PO WB start 09/05/16 08/16/16 Prednisone (Prednisone) 10 Mg Tablet, 30 MG PO WB start 08/22/16 08/16/16 Prednisone (Prednisone) 20 Mg Tablet, 40 MG PO WB 08/16/16 Pantoprazole Sodium (Pantoprazole Sodium) 40 Mg Tablet.dr, 40 MG PO HS 08/16/16 Ondansetron HCl (Ondansetron HCl) 4 Mg/5 Ml Solution, 4 MG PO Q6H Y for NAUSEA & /OR VOMITING 08/16/16 Ondansetron HCl/Pf (Ondansetron HCl 4 mg/2 ml Vial) 4 Mg/2 Ml Vial, 4 MG IV Q6H Y for NAUSEA &/OR VOMITING 08/16/16 Polyethylene Glycol 3350 (Miralax) 17 Gm Powd.pack, 17 G PO BID Y for CONSTIPATION 08/16/16 Bisacodyl (Bisacodyl) 10 Mg Supp.rect, 10 MG RECTALLY BID Y for CONSTIPATION 08/16/16 Magnesium Hydroxide (Milk of Magnesia) 400 Mg/5 Ml Oral.susp, 30 ML PO HS Y for CONSTIPATION 08/16/16 Dextrose (Glucose Gel) 38 Gm Gel..gram., 15 GM PO O Y for HYPOGLYCEMIA 08/16/16 Citalopram Hydrobromide (Citalopram HBr) 20 Mg Tablet, 20 MG PO HS 08/16/16 Acetaminophen (Acetaminophen) 160 Mg/5 Ml Liquid, 650 MG PO Q4H Y for PAIN/FEVER 08/16/16 Aspirin (Aspirin) 81 Mg Tab.chew, 81 MG PO DAILY 08/16/16 Lisinopril (Lisinopril) 10 Mg Tablet, 10 MG PO DAILY 08/16/16 Amlodipine Besylate (Amlodipine Besylate) 10 Mg Tablet, 10 MG PO DAILY 08/16/16 Labetalol HCl (Labetalol HCl) 20 Mg/4 Ml Syringe, 10 MG IV Q2H Y for PRN ORDERS 08/16/16 Nitroglycerin (Nitroglycerin) 0.4 Mg Tab.subl, 0.4 MG SL Q5M Y for CHEST PAIN 08/16/16 Hydralazine HCl (Hydralazine HCl) 20 Mg/1 Ml Vial, 20 MG PO Q4H 08/16/16 Clonidine HCl (Clonidine HCl) 0.1 Mg Tablet, 0.1 MG PO TID 08/16/16 Hydralazine HCl (Hydralazine HCl) 20 Mg/1 Ml Vial, 10 MG IV Q2H Y for PRN ORDERS 08/16/16 Atorvastatin Calcium (Atorvastatin Calcium) 40 Mg Tablet, 40 MG PO HS 08/16/16 Enoxaparin Sodium (Enoxaparin Sodium) 40 Mg/0.4 Ml Syringe, 40 MG SQ DAILY 08/16/16 Discontinued Reported Medications Metformin HCl (Metformin HCl) 500 Mg Tablet, 500 MG PO BIDWM 08/16/16 Insulin Lispro (Humalog) 100 Unit/Ml Inj, 1 UNIT SQ PRN 08/16/16 Metoprolol Tartrate (Metoprolol Tartrate) 100 Mg Tablet, 200 MG PO BIDWM 08/16/16 Baclofen (Baclofen) 10 Mg Tablet, 10 MG PO TID 08/16/16 Allergies: Coded Allergies: codeine (Unverified Allergy, Unknown, 08/17/16) Vaccines No Social History Does patient use chewing tobac: No Second Hand Exposure: No Substance Use Type: does not use Alcohol Intake: none Marital Status: Sexuality: male partner Housing: house Advance Directives: Yes Full Code Review of Systems Unable to Obtain ROS Due to: clinical condition Physical Exam General General Nourishment: well nourished, well developed, apparent age Vital Signs Vital Signs Date Time Temp Pulse Resp B/P Pulse Ox O2 Delivery O2 Flow Rate FiO2 08/19/16 09:37 86 20 08/19/16 09:30 161/85 98 Room Air 08/19/16 08:45 98.7 Height (Feet): 5 Height (Inches): 4.00 Telemetry Rhythm: Sinus Rhythm ENMT Brief: FOUND: mucosa moist Neck Brief: NOT FOUND: JVD, carotid bruits Respiratory Brief: FOUND: clear all [place], equal bilaterally, NOT FOUND: rales , wheezes Cardiovascular (brief) Cardiac Brief: FOUND: regular rate, regular rhythm, NOT FOUND: click, gallop, murmur, pedal edema Abdomen (brief) Abdominal Brief: FOUND: BS normo active x4, soft Integumentary (brief) Integumentary Brief: FOUND: pink, warm Neurologic RN Documented GCS Eye Opening: (4)Spontaneous Verbal: (1)None Motor: (6)Obeys Commands Total: 11 Psychiatric (brief) FOUND: other (somnolent) Laboratory Laboratory Tests Test 08/17/16 13:31 08/17/16 16:45 08/17/16 22:26 08/18/16 01:14 Urine Collection Type Dubose indwelling Urine Color Yellow Urine Turbidity Cloudy Urine pH 7.5 Urine Specific [place] 1.010 Urine Protein Negative Urine Glucose (UA) Negative Urine Ketones Negative Urine Blood Negative Urine Nitrite Negative Urine Bilirubin Negative Urine Urobilinogen 0.2EU/DL Urine Leukocyte Esterase Negative Urinalysis Comment Microscopic not ind. Glucometer 127mg/dL 88mg/dL 93mg/dL Test 08/18/16 04:08 08/18/16 06:21 08/18/16 11:34 08/18/16 14:30 White Blood Count 9.2T/MM3 Red Blood Count 3.89M/MM3 Hemoglobin 12.2GM/DL Hematocrit 36.8% Mean Corpuscular Volume 94.6UM3 Mean Corpuscular Hemoglobin 31.4UUG Mean Corpuscular Hemoglobin Concent 33.2GM/DL RDW Standard Deviation 44.7FL Platelet Count 312T/MM3 Mean Platelet Volume 9.8UM3 Immature Granulocyte % (Auto) % Neutrophils (%) (Auto) % Lymphocytes (%) (Auto) % Monocytes (%) (Auto) % Eosinophils (%) (Auto) % Basophils (%) (Auto) % Absolute Immature Granulocyte (auto T/MM3 Absolute Neutrophils (auto) T/MM3 Absolute Lymphocytes (auto) T/MM3 Absolute Monocytes (auto) T/MM3 Absolute Eosinophils (auto) T/MM3 Absolute Basophils (auto) T/MM3 Neutrophils % (Manual) 76.0% Band Neutrophils % 2.0% Lymphocytes % (Manual) 20.0% Monocytes % (Manual) 2.0% Absolute Neutrophils (Manual) 7.0T/MM3 Band Neutrophils # 0.2T/MM3 Lymphocytes # (Manual) 1.8T/MM3 Monocytes # (Manual) 0.2T/MM3 Red Cell Morphology Comment Normal Turbidity < 20 < 20 Sodium Level 136MEQ/L 143MEQ/L Potassium Level 4.8MEQ/L 3.8MEQ/L Chloride Level 101MEQ/L 110MEQ/L Carbon Dioxide Level 25MEQ/L 24MEQ/L Anion Gap 10MEQ/L 9MEQ/L Blood Urea Nitrogen 24.0MG/DL 20.0MG/DL Creatinine 1.5MG/DL 0.6MG/DL Glomerular Filtration Rate Calc 36 105 BUN/Creatinine Ratio 16RATIO 33RATIO Glucose Level 179MG/DL 159MG/DL Calculated Osmolality 270MOSM/KG 281MOSM/KG Calcium Level 9.1MG/DL 8.9MG/DL Phosphorus Level 3.8MG/DL Magnesium Level 1.9MG/DL Total Bilirubin 0.70MG/DL Icterus Index < 2 < 2 Aspartate Amino Transf (AST/SGOT) 27U/L Alanine Aminotransferase (ALT/SGPT) 26U/L Alkaline Phosphatase 84U/L Total Creatine Kinase < 20U/L Total Protein 6.4G/DL Albumin 3.6G/DL Globulin 2.8G/DL Albumin/Globulin Ratio 1.3RATIO Prealbumin 33.7MG/DL Vitamin B12 Level > 1000PG/ML Folate 16.7NG/ML Chemistry Specimen Hemolysis < 15 < 15 Glucometer 86mg/dL 114mg/dL Test 08/18/16 16:50 08/18/16 17:50 08/19/16 00:52 08/19/16 04:07 Glucometer 113mg/dL 84mg/dL White Blood Count 6.3T/MM3 Red Blood Count 3.72M/MM3 Hemoglobin 11.9GM/DL Hematocrit 35.4% Mean Corpuscular Volume 95.2UM3 Mean Corpuscular Hemoglobin 32.0UUG Mean Corpuscular Hemoglobin Concent 33.6GM/DL RDW Standard Deviation 45.0FL Platelet Count 279T/MM3 Mean Platelet Volume 9.8UM3 Neutrophils % (Manual) 68.0% Lymphocytes % (Manual) 28.0% Monocytes % (Manual) 2.0% Metamyelocytes % 1.0% Myelocytes % 1.0% Absolute Neutrophils (Manual) 4.3T/MM3 Lymphocytes # (Manual) 1.8T/MM3 Monocytes # (Manual) 0.1T/MM3 Metamyelocytes # 0.1T/MM3 Myelocytes # 0.1T/MM3 Red Cell Morphology Comment Normal Turbidity < 20 Sodium Level 142MEQ/L Potassium Level 3.4MEQ/L Chloride Level 112MEQ/L Carbon Dioxide Level 23MEQ/L Anion Gap 7MEQ/L Blood Urea Nitrogen 16.0MG/DL Creatinine 0.6MG/DL Glomerular Filtration Rate Calc 105 BUN/Creatinine Ratio 27RATIO Glucose Level 96MG/DL Calculated Osmolality 274MOSM/KG Calcium Level 8.7MG/DL Phosphorus Level 2.6MG/DL Magnesium Level 2.1MG/DL Icterus Index < 2 Albumin 2.8G/DL Chemistry Specimen Hemolysis < 15 Test 08/19/16 06:15 Glucometer 84mg/dL Laboratory Tests Test 08/17/16 13:31 08/17/16 16:45 08/17/16 22:26 08/18/16 01:14 Urine Collection Type [place] indwelling Urine Color Yellow Urine Turbidity Cloudy Urine pH 7.5 Urine Specific [place] 1.010 Urine Protein Negative Urine Glucose (UA) Negative Urine Ketones Negative Urine Blood Negative Urine Nitrite Negative Urine Bilirubin Negative Urine Urobilinogen 0.2EU/DL Urine Leukocyte Esterase Negative Urinalysis Comment Microscopic not ind. Glucometer 127mg/dL 88mg/dL 93mg/dL Test 08/18/16 04:08 08/18/16 06:21 08/18/16 11:34 08/18/16 14:30 White Blood Count 9.2T/MM3 Red Blood Count 3.89M/MM3 Hemoglobin 12.2GM/DL Hematocrit 36.8% Mean Corpuscular Volume 94.6UM3 Mean Corpuscular Hemoglobin 31.4UUG Mean Corpuscular Hemoglobin Concent 33.2GM/DL RDW Standard Deviation 44.7FL Platelet Count 312T/MM3 Mean Platelet Volume 9.8UM3 Immature Granulocyte % (Auto) % Neutrophils (%) (Auto) % Lymphocytes (%) (Auto) % Monocytes (%) (Auto) % Eosinophils (%) (Auto) % Basophils (%) (Auto) % Absolute Immature Granulocyte (auto T/MM3 Absolute Neutrophils (auto) T/MM3 Absolute Lymphocytes (auto) T/MM3 Absolute Monocytes (auto) T/MM3 Absolute Eosinophils (auto) T/MM3 Absolute Basophils (auto) T/MM3 Neutrophils % (Manual) 76.0% Band Neutrophils % 2.0% Lymphocytes % (Manual) 20.0% Monocytes % (Manual) 2.0% Absolute Neutrophils (Manual) 7.0T/MM3 Band Neutrophils # 0.2T/MM3 Lymphocytes # (Manual) 1.8T/MM3 Monocytes # (Manual) 0.2T/MM3 Red Cell Morphology Comment Normal Turbidity < 20 < 20 Sodium Level 136MEQ/L 143MEQ/L Potassium Level 4.8MEQ/L 3.8MEQ/L Chloride Level 101MEQ/L 110MEQ/L Carbon Dioxide Level 25MEQ/L 24MEQ/L Anion Gap 10MEQ/L 9MEQ/L Blood Urea Nitrogen 24.0MG/DL 20.0MG/DL Creatinine 1.5MG/DL 0.6MG/DL Glomerular Filtration Rate Calc 36 105 BUN/Creatinine Ratio 16RATIO 33RATIO Glucose Level 179MG/DL 159MG/DL Calculated Osmolality 270MOSM/KG 281MOSM/KG Calcium Level 9.1MG/DL 8.9MG/DL Phosphorus Level 3.8MG/DL Magnesium Level 1.9MG/DL Total Bilirubin 0.70MG/DL Icterus Index < 2 < 2 Aspartate Amino Transf (AST/SGOT) 27U/L Alanine Aminotransferase (ALT/SGPT) 26U/L Alkaline Phosphatase 84U/L Total Creatine Kinase < 20U/L Total Protein 6.4G/DL Albumin 3.6G/DL Globulin 2.8G/DL Albumin/Globulin Ratio 1.3RATIO Prealbumin 33.7MG/DL Vitamin B12 Level > 1000PG/ML Folate 16.7NG/ML Chemistry Specimen Hemolysis < 15 < 15 Glucometer 86mg/dL 114mg/dL Test 08/18/16 16:50 08/18/16 17:50 08/19/16 00:52 08/19/16 04:07 Glucometer 113mg/dL 84mg/dL White Blood Count 6.3T/MM3 Red Blood Count 3.72M/MM3 Hemoglobin 11.9GM/DL Hematocrit 35.4% Mean Corpuscular Volume 95.2UM3 Mean Corpuscular Hemoglobin 32.0UUG Mean Corpuscular Hemoglobin Concent 33.6GM/DL RDW Standard Deviation 45.0FL Platelet Count 279T/MM3 Mean Platelet Volume 9.8UM3 Neutrophils % (Manual) 68.0% Lymphocytes % (Manual) 28.0% Monocytes % (Manual) 2.0% Metamyelocytes % 1.0% Myelocytes % 1.0% Absolute Neutrophils (Manual) 4.3T/MM3 Lymphocytes # (Manual) 1.8T/MM3 Monocytes # (Manual) 0.1T/MM3 Metamyelocytes # 0.1T/MM3 Myelocytes # 0.1T/MM3 Red Cell Morphology Comment Normal Turbidity < 20 Sodium Level 142MEQ/L Potassium Level 3.4MEQ/L Chloride Level 112MEQ/L Carbon Dioxide Level 23MEQ/L Anion Gap 7MEQ/L Blood Urea Nitrogen 16.0MG/DL Creatinine 0.6MG/DL Glomerular Filtration Rate Calc 105 BUN/Creatinine Ratio 27RATIO Glucose Level 96MG/DL Calculated Osmolality 274MOSM/KG Calcium Level 8.7MG/DL Phosphorus Level 2.6MG/DL Icterus Index < 2 Albumin 2.8G/DL Chemistry Specimen Hemolysis < 15 Test 08/19/16 06:15 Glucometer 84mg/dL EKG SR Radiology DATE OF EXAM: 08/18/16 ORDERING DOCTOR: EDUARD FERNANDEZ MD TYPE OF EXAM: US RENAL REASON FOR EXAM: sammi Indication: ITS.REASON: sammi PROCEDURE: US RENAL: Encounter: Initial Comparison: None Technique: Grayscale and color Doppler sonographic imaging of both kidneys was performed. FINDINGS: Both kidneys are present with normal cortical thickness and echogenicity. No evidence for collecting system dilatation, contour deforming mass, nephrolithiasis, or abnormal perinephric fluid collection. The right kidney measures 10.9 cm in length, and the left kidney measures 10 cm in length. IMPRESSION: Normal renal sonogram. There is a preliminary report by virtual radiologic DATE OF EXAM: 08/18/16 ORDERING DOCTOR: EDUARD FERNANDEZ MD TYPE OF EXAM: KUB W/UPRIGHT REASON FOR EXAM: increased bowel gas seen on cxr, no bm Indication: ITS.REASON: increased bowel gas seen on cxr, no bm PROCEDURE: KUB W/UPRIGHT: Encounter: Initial Comparison: None Findings: Contrast material seen within the colon. Lung bases are grossly clear. No free air identified. Nonobstructive nonspecific bowel gas pattern. No abnormally dilated small bowel appreciated. Contrast appears to be present to the level of the rectum. Impression: Nonobstructive nonspecific bowel gas pattern DATE OF EXAM: 08/17/16 ORDERING DOCTOR: GAYLA VEGA APRN TYPE OF EXAM: CHEST 1 VIEW REASON FOR EXAM: AMS Indication: ITS.REASON: AMS PROCEDURE: CHEST 1 VIEW: Encounter: Initial Comparison: None FINDINGS: The lungs are clear. There is no abnormal airspace opacity, pleural effusion or pneumothorax identified. The heart size, pulmonary vasculature and mediastinum are within normal limits. No significant skeletal abnormality is seen. Contrast or high density material in the bowel. IMPRESSION: No acute cardiopulmonary abnormality. Impression/Recommendation Problems: (1) Atrial fibrillation, currently in sinus rhythm Status: Acute Assessment & Plan: Check TSH. Remains in SR per tele, continue to monitor. (2) Hemorrhagic cerebrovascular accident (CVA) Status: Acute Assessment & Plan: per attending (3) Resistant hypertension Status: Acute Assessment & Plan: Renal Duplex, Echocardiogram ordered. Check blood pressure in arm and thigh at same time X1 (4) Embolic stroke Status: Acute (5) Vasculitis Status: Acute (6) Hypercholesteremia Status: Chronic Recommendation AFIB: Telemetry showed afib with aberrancy. Check TSH. Remains in SR per tele, continue to monitor. HTN: Renal Duplex, Echocardiogram ordered. Check blood pressure in arm and thigh at same time X1. Thank you for allowing us to participate in the care of this patient. We will follow along with you. YAMILKA SMITH MD 08/23/16 1522: Past Medical History Current Medications Home Meds Active Scripts Labetalol HCl (Labetalol HCl) 100 Mg Tablet, 150 MG PO BID for hypertension for 30 Days, #90 TAB Prov:SILVIO DOAN MD 08/20/16 Baclofen (Baclofen) 10 Mg Tablet, 5 MG PO QID for 28 Days, #56 TAB Prov:SILVIO DOAN MD 08/20/16 Reported Medications Docusate Sodium (Docusate Sodium) 100 Mg Capsule, 1 CAP PO BID, #30 CAP 08/17/16 Tamsulosin HCl (Tamsulosin HCl) 0.4 Mg Cap.er.24h, 0.4 MG PO HS 08/16/16 Glucagon,Human Recombinant (Glucagon Emergency Kit) 1 Mg/Kit Syringe, 1 MG IM O Y for HYPOGLYCEMIA 08/16/16 Prednisone (Prednisone) 20 Mg Tablet, 20 MG PO WB start 09/05/16 08/16/16 Prednisone (Prednisone) 10 Mg Tablet, 30 MG PO WB start 08/22/16 08/16/16 Prednisone (Prednisone) 20 Mg Tablet, 40 MG PO WB 08/16/16 Pantoprazole Sodium (Pantoprazole Sodium) 40 Mg Tablet.dr, 40 MG PO HS 08/16/16 Ondansetron HCl (Ondansetron HCl) 4 Mg/5 Ml Solution, 4 MG PO Q6H Y for NAUSEA & /OR VOMITING 08/16/16 Ondansetron HCl/Pf (Ondansetron HCl 4 mg/2 ml Vial) 4 Mg/2 Ml Vial, 4 MG IV Q6H Y for NAUSEA &/OR VOMITING 08/16/16 Polyethylene Glycol 3350 (Miralax) 17 Gm Powd.pack, 17 G PO BID Y for CONSTIPATION 08/16/16 Bisacodyl (Bisacodyl) 10 Mg Supp.rect, 10 MG RECTALLY BID Y for CONSTIPATION 08/16/16 Magnesium Hydroxide (Milk of Magnesia) 400 Mg/5 Ml Oral.susp, 30 ML PO HS Y for CONSTIPATION 08/16/16 Dextrose (Glucose Gel) 38 Gm Gel..gram., 15 GM PO O Y for HYPOGLYCEMIA 08/16/16 Citalopram Hydrobromide (Citalopram HBr) 20 Mg Tablet, 20 MG PO HS 08/16/16 Acetaminophen (Acetaminophen) 160 Mg/5 Ml Liquid, 650 MG PO Q4H Y for PAIN/FEVER 08/16/16 Aspirin (Aspirin) 81 Mg Tab.chew, 81 MG PO DAILY 08/16/16 Lisinopril (Lisinopril) 10 Mg Tablet, 10 MG PO DAILY 08/16/16 Amlodipine Besylate (Amlodipine Besylate) 10 Mg Tablet, 10 MG PO DAILY 08/16/16 Labetalol HCl (Labetalol HCl) 20 Mg/4 Ml Syringe, 10 MG IV Q2H Y for PRN ORDERS 08/16/16 Nitroglycerin (Nitroglycerin) 0.4 Mg Tab.subl, 0.4 MG SL Q5M Y for CHEST PAIN 08/16/16 Hydralazine HCl (Hydralazine HCl) 20 Mg/1 Ml Vial, 20 MG PO Q4H 08/16/16 Clonidine HCl (Clonidine HCl) 0.1 Mg Tablet, 0.1 MG PO TID 08/16/16 Hydralazine HCl (Hydralazine HCl) 20 Mg/1 Ml Vial, 10 MG IV Q2H Y for PRN ORDERS 08/16/16 Atorvastatin Calcium (Atorvastatin Calcium) 40 Mg Tablet, 40 MG PO HS 08/16/16 Enoxaparin Sodium (Enoxaparin Sodium) 40 Mg/0.4 Ml Syringe, 40 MG SQ DAILY 08/16/16 Discontinued Reported Medications Metformin HCl (Metformin HCl) 500 Mg Tablet, 500 MG PO BIDWM 08/16/16 Insulin Lispro (Humalog) 100 Unit/Ml Inj, 1 UNIT SQ PRN 08/16/16 Metoprolol Tartrate (Metoprolol Tartrate) 100 Mg Tablet, 200 MG PO BIDWM 3/31/17 Baclofen (Baclofen) 10 Mg Tablet, 10 MG PO TID 08/16/16 Allergies: Coded Allergies: codeine (Unverified Allergy, Unknown, 08/17/16) Impression/Recommendation Recommendation After examining the patient I agree with the above assessment. I am involved in the formulation of the patient's plan of care. CHERY BEEBE APRN Aug 19, 2016 12:04 YAMILKA SMITH MD Aug 23, 2016 15:22
--- NOTE | 2016-08-19 13:22 | NUR ---
Lunch Have attempted several times to feed pt lunch. Pt is resting very comfortably it appears, even snoring. No pain or deep stimuli was attempted. Will feed pt when more awake. Pt was still turned at noon and boot changed to other leg. Will continue to monitor.
--- NOTE | 2016-08-19 14:10 | NUR ---
CM CM VISITED PT. PT RESTING QUIETLY. CM VISITED WITH NURSE WHO STATES IS MOSTLY NONVERBAL. CM SPOKE WITH PT SPOUSE DOUGLAS. CM EXPLAINED ROLE AND PROVIDED CONTACT INFORMATION. SPOUSE WOULD LIKE PT TO RETURN TO [facility] AT [facility] [place]. SPOUSE AWARE OF PROCESS RELATED TO INSURANCE. SPOUSE HAS NO ALTERATIVE PLAN FOR PT AT THIS TIME. SPOUSE IS AWARE TO CONTACT CM IF NEEDS ARISE.
--- NOTE | 2016-08-19 14:40 | NUR ---
Swallowing Pt finally woke up enough to attempt to eat lunch. Pt would open mouth when spoon was placed near pt's mouth, but would hold food in mouth. No swallow elicited. RN attempted both cold/hot foods, spooning them out of pt's mouth between bites. Also rubbing neck to stimulate swallow. RN ended up suctioning all food/liquid out of pt's mouth and cleaning well with water/green swabs. ChapStick was then placed on pt's lips. Pt was very alert during feeding (eyes open, following noises), but never swallowed. Will attempt again for pills.
--- NOTE | 2016-08-19 16:17 | NUR ---
eating Pt's arrived and was able to get more response from pt. Pt began to chew/swallow ice. Pills were given crushed in pudding. Pt ate pudding cup, ice cream cup, and 70 cc of ice chips. Pt tolerated well.
--- NOTE | 2016-08-19 16:18 | NUR ---
Blood pressure Arm/Leg Dr. Pinon requested BP be taken simultaneously. Left arm: 129/70 Left thigh: 156/[address] Pinon.
--- NOTE | 2016-08-19 18:28 | PNPDOC ---
Subjective Date DATE: 08/19/16 TIME: 18:14 Subjective The patient was seen this afternoon accompanied by her . She had a fairly good night per her nurse and slept fairly well. She was able to take her medications overnight and today. Despite taking her oral medications she did need 2 or 3 doses of IV antihypertensives to bring down her blood pressure. She is eating okay today. Per her , she did sit on the side of the bed with physical therapy and stood with physical therapy at the side of the bed but thereafter was extremely sleepy and difficult to awaken. She did awaken after a couple of hours and was able to eat her lunch and take her afternoon pills. She has a Dubose catheter in place with good urine output. Her has been working with her with passive range of motion and he notices that she is a little more stiff in the right arm than she had been. He also notices that her blood pressure will creep up while he is doing passive range of motion. Objective Vital Signs Vital signs Vital Signs Date Time Temp Pulse Resp B/P Pulse Ox O2 Delivery O2 Flow Rate FiO2 08/19/16 16:16 68 12 08/19/16 16:00 97.8 116/63 99 Room Air I&O 3061/934 yesterday GEN-awake, will track people who walk into the room, she will smile when someone smiles at her. She appears to move her lips a little to try to answer a question but has not verbalized for me. She is in no distress HEENT-sclera anicteric, pupils equal, oropharynx is moist NECK-carotids are silent CV-regular rate and rhythm. Telemetry showed some arrhythmia overnight. CHEST-clear to auscultation bilaterally ABD-soft, nontender, nondistended with positive bowel sounds -Dubose in place with good urine output EXT-no edema NEURO-she has muscle stiffness in all 4 extremities but more so in the right upper extremity SKIN-warm and dry and without rashes Telemetry Rhythm: Sinus Rhythm Height (Feet): 5 Height (Inches): 4.00 Weight (Kilograms): 53.300 Laboratory Laboratory Item Value Date Time Magnesium Level 2.1 MG/DL 08/19/16406 Thyroid Stimulating Hormone (TSH) 1.39 MIU/L 08/19/16406 Vitamin B12 Level > 1000 PG/ML H 08/18/16 0408 Folate 16.7 NG/ML 08/18/16 0408 Total Creatine Kinase < 20 U/L L 08/18/16 0408 Laboratory Tests 08/18/16 04:08 08/18/16 14:30 08/19/16 04:07 Laboratory Tests 08/18/16 04:08 08/19/16 04:07 Assessment & Plan Problems: (1) Altered mental status Status: Acute Qualifiers: Altered mental status type: somnolence Qualified Codes: R40.0 - Somnolence Assessment & Plan: Neurology appt Dr. Diez 08/27/16 @ 0930; Scheduled with Dr. Acevedo 09/23/16 @ 10:30 am. (2) ICH (intracerebral hemorrhage) Status: Chronic Qualifiers: Intracerebral hemorrhage etiology: nontraumatic Cerebral hemorrhage location: other cerebral location Laterality: left Qualified Codes: I61.8 - Other nontraumatic intracerebral hemorrhage Assessment & Plan: Left Thalamic bleed with mass effect. 4V angiogram is scheduled at [facility] 09/02/16 @ 0930, arrive 45 min early (3) Embolic stroke Status: Acute Qualifiers: Precerebral and cerebral artery: unspecified precerebral artery Qualified Codes: I63.10 - Cerebral infarction due to embolism of unspecified precerebral artery Assessment & Plan: Multiple sites. (4) VAP (ventilator-associated pneumonia) Onset Date: ~ 08/08/2016 Status: Resolved Assessment & Plan: Initial: Staph Aureus/Beta hemolytic strep Second: PSA/E.Coli (5) Urinary retention Status: Chronic Assessment & Plan: Did not tolerate Dubose removal. (6) Resistant hypertension Status: Acute Assessment & Plan: Concern for Pheochromocytoma. Consult for Dr. Yepez ( Med- Endocrine) Seen by Dr. Mark Castrejon at [facility] (7) Malnutrition Status: Chronic (8) Hydrocephalus Status: Resolved Assessment & Plan: s/p EVD 07/29/16-08/05/16 (Kellie) Follow up with Dr. Hopkins in 6-[address] scan prior to visit. (9) History of Rafa-Lyles virus infection Status: Resolved Assessment & Plan: Mar 2016 (10) Vasculitis Status: Acute Assessment & Plan: Possible- R/O. (11) Hypertonia Status: Acute Assessment 08/19/2016 Impression Intracranial hemorrhage 3 weeks ago Altered mental status on 08/17/2016-CT head showed no significant changes per [facility] neuro-phy therapist, no recurrence of nonresponsiveness baclofen decreased- the patient is more awake today but does have episodes of somnolence where she is difficult to arouse. This type of fluctuation of level of consciousness is not unusual in patients with history of stroke. If she continues to have increasing muscle stiffness we may consider increasing baclofen back to 10 mg 3 times a day and monitoring for excessive drowsiness. Acute kidney injury-resolved. This likely secondary to dehydration off of fluids in Dobbhoff tube. Lisinopril will be restarted. It was held because of acute kidney injury yesterday. Resistant hypertension-restart lisinopril. Continue to monitor in CCU until blood pressure a little more stable, then can transfer back to CCU with otherwise stable. Workup for pheochromocytoma in progress Urinary retention-patient has had Dubose catheter prior to admission at [facility]. She is on Flomax Malnutrition-encourage by mouth intake. Dobbhoff was removed prior to transfer to [facility]. Consult the dietitian for three-day calorie count and calorie recommendations as well as fluid intake recommendations Hypertonia-baclofen decreased August 17 due to altered mental status. Consider increasing if she continues to have increased muscle tone Possible vasculitis-workup in progress. Patient is on a steroid taper. Follow- up has been scheduled regarding possible vasculitis. Xgtkdagtivcng-jluwbtjn-xatotg secondary to steroids-metformin discontinued 08/18 Ventilator associated pneumonia [facility]-finished antibiotic treatment Hydrocephalus-status post EVD placement and removal Superficial thrombus right cephalic vein-PICC line removed at [facility] prior to transfer Greater than 45 minutes of critical care time spent seeing and evaluating the patient. The patient's was updated today and questions answered. DVT Prophylaxis: SCD'S, Lovenox Code Status Full Code Hospital Course Summary Disclaimer The hospital course summary below is not to be considered part of the above Progress Note. Hospital Course Summary 08/17/16- Paty *Thalamic ICH/SAH- Extensive hospitalization. AMS concerning for recurrence. Case discussed by Dr. Fernandez with tele-stroke team, [facility] staff previously caring for patient, [facility]. Continue current plan of care. Pt. did wake up after decadron- unclear if this is more due to edema or medication related. Decreased dose of baclofen (spasticity). Recent increase in Celexa- may need to decrease or hold. If persistent, recurrent AMS, consider change from prednisone to Decadron IV. *Embolic stroke, concerning for vasculitis- Prednisone taper. Has a follow up angiogram scheduled to reassess. ANCA was negative. Assess GENE, C3/C4, ESR to R/O lupus related vasculitis. ASA, Statin. *Resistant HTN- concern for Pheochromocytoma. Recheck VMA, Urine catecholamines & metanephrines 24 hour urine. Orders entered. If positive, may need MIBG scan. Dr. Yepez follow up- endocrine or consult local. Continue current. We may need to replace DHT if unable to get oral meds down. Avoid excessive lowering- hold Clonidine if SBP less than 140. *Malnutrition- Start calorie count. Consult dietary. May need to place feeding tube to supplement. She appears quite underweight. Assess preAlbumin for starting point today. Only feed if awake and able to tolerate PO. Add supportive IVF for hydration. Avoid dextrose containing solutions if possible due to stroke, cerebral edema. *VAP- CXR appears ok. Continue to monitor. Has completed treatment on 08/16/16. *Urinary retention- Continue Dubose, Flomax. UA ok. *Hyperglycemia- likely related to steroids. Assess BG. Continue metformin BID for now. *Hx of hydrocephalus- films reviewed by [facility] team. *DVT px- LMWH Code status: full code. 08/17/2016-I reviewed this chart, the patient history, and the LIQU[employer]GAR FORTIFIER's/PA's documented findings as above. We discussed and formulated the assessment and plan as above with the additions below.-Dr. Fernandez Please see my free text progress note from earlier this morning. I did speak with Dr. Pollard neuro-phy therapist at [facility] this morning. He was able to review our CAT scan done this morning and compare it to previous brain imaging from [facility] during her stay. He stated that he did not see any changes. By the time I spoke with him the patient was awakening and starting to be responsive. Her vital signs remained stable during this episode of unresponsiveness. The patient's stated that she was having episodes of extreme fatigue and unresponsiveness at [facility] as well. The patient had received baclofen prior to becoming unresponsive and we will decrease this dose and see if she can stay more responsive. I did go back to evaluate the patient this evening and her nurse stated she had been more alert today and even said "okay" today. She has been eating and drinking well and vitals have remained stable. We will continue to monitor in ICU overnight and possibly transfer back to inpatient rehabilitation tomorrow if she remains stable. 08/18/2016 Impression Intracranial hemorrhage 3 weeks ago Altered mental status on 08/17/2016-CT head showed no significant changes per [facility] neuro-phy therapist, no recurrence of nonresponsiveness baclofen decreased Acute kidney injury with rising creatinine to 1.5 from 0.6 yesterday. This is of uncertain etiology. She is not on any new medications. She has been on normal saline at 100 and hour since yesterday morning. Dubose catheter is in place. Will discontinue lisinopril. Metformin was discontinued last night. We' ll check a renal sonogram and CPK. Will give a 500 cc normal saline bolus over 2 hours. No hypotension yesterday. Blood pressures ranged from 100 systolic to 160 systolic Resistant hypertension-continue current medications are lisinopril. Workup for pheochromocytoma in progress Urinary retention-patient has had Dubose catheter prior to admission at [facility]. She is on Flomax Malnutrition-encourage by mouth intake. Dobbhoff was removed prior to transfer to [facility] Hypertonia-baclofen decreased August 17 due to altered mental status Possible vasculitis-workup in progress Vmnymvjcqmjhs-hisifjsk-vuirgy secondary to steroids-metformin discontinued 08/18 Ventilator associated pneumonia [facility]-finished antibiotic treatment Hydrocephalus-status post EVD placement and removal Greater than 45 minutes of critical care time spent seeing and evaluating the patient. EDUARD FERNANDEZ MD Aug 19, 2016 18:19
--- NOTE | 2016-08-19 19:28 | NUR ---
RD Consult for malnutrition: BMI: 20.2 Estimated daily nutrient needs for weight maintenance: Calories: ~1475 (activity factor 1.3, injury factor 1.0) Protein: 58 g (1.1 g/kg body weight) Fluid: ~1500 ml (~ 1 ml/calorie) Diet order: Dysphagia puree with honey thick liquid RD spoke with nurse who said patient has been willing to eat pureed food so getting adequate calories should be possible. However, it is very difficult for patients to get adequate fluid by drinking honey thick liquids. Patient had been on IV fluids until last night, so BUN creatinine ratio was normal on the last lab report but getting adequate fluids will be a challenge and a priority. RD available at Ext. [phone].
--- NOTE | 2016-08-19 21:00 | NUR ---
STATUS PT TOOK MEDS WITH PUDDING AND THEN WAS FED THE REST OF PUDDING. HOB UP. SWALLOWED WITHOUT CHOKING. OPENS EYES, OCC SLIGHT SMILE. CAN SQUEEZE SLIGHTLY WITH RIGHT HAND.
[2016-08-19] MEDS: TAMSULOSIN 0.4 MG CAPSULE PO SCH (21:16)
[2016-08-19] MEDS: ATORVASTATIN 40 MG TABLET PO SCH (21:16)
[2016-08-19] MEDS: PANTOPRAZOLE 40 MG TABLET PO SCH (21:16)
[2016-08-20] VITALS (21 sets, daily range): BP systolic 108–193; BP diastolic 55–100; PULSE 60–99; RESP 10–25; TEMP 97–98.9; O2SAT 95–98
--- NOTE | 2016-08-20 03:12 | NUR ---
BP pt BP is 163/85. PRN Hydralazine admin per orders.
--- NOTE | 2016-08-20 04:00 | NUR ---
BP Reassess Pt BP now down to 142/62 following PRN Hydralazine.
--- NOTE | 2016-08-20 04:42 | NUR ---
Pain Pt nods head slightly "yes" when asked if she was in pain. Pt brow noted to be furrowed. Pt unable to rate/locate pain. PRN Tylenol admin, crushed in pudding. Pt swallows with an occasional cough noted.
--- NOTE | 2016-08-20 05:06 | NUR ---
BP Pt BP 183/96. PRN Labetalol admin per orders.
[2016-08-20 05:09] LABS: BASOPHILS % (AUTO) 0.1 % (0-2); EOSINOPHILS % (AUTO) 0.3 % (0-4); HCT - HEMATOCRIT 36.7 % (36-46); HGB - HEMOGLOBIN 12.3 GM/DL (12-16); IMMATURE GRANULOCYTE # (AUTO) 0.13 T/MM3 (0.00-0.03); IMMATURE GRANULOCYTE % (AUTO) 1.9 % (0.0-0.5); LYMPHOCYTES # (AUTO) 1.6 T/MM3 (1-4.8); LYMPHOCYTES % (AUTO) 23.8 % (23-45); MEAN CORPUSCULAR HGB 31.6 UUG (26-34); MEAN CORPUSCULAR HGB CONC(MCHC 33.5 GM/DL (31-37); MEAN CORPUSCULAR VOLUME 94.3 UM3 (80-100); MEAN PLATELET VOLUME 9.8 UM3 (9.4-12.4); MONOCYTES # (AUTO) 0.7 T/MM3 (0-0.8); MONOCYTES % (AUTO) 10.4 % (0-9.0); NEUTROPHILS #(AUTO)-ABSOLUTE 4.3 T/MM3 (1.8-7.7); NEUTROPHILS % (AUTO) 63.5 % (33-66); RED BLOOD COUNT 3.89 M/MM3 (4.00-5.20); WBC - WHITE BLOOD COUNT 6.8 T/MM3 (4.5-11.0)
[2016-08-20 05:20] LABS: ANION GAP 7 MEQ/L (5-15); BUN/CREATININE RATIO 26 RATIO (6-26); CALCIUM 8.8 MG/DL (8.4-10.2); CHLORIDE 109 MEQ/L (98-107); CO2 - CARBON DIOXIDE 25 MEQ/L (22-30); CREATININE 0.5 MG/DL (0.7-1.2); GLOMERULAR FILTRATION RATE 130; GLUCOSE 110 MG/DL (65-110); POTASSIUM 3.4 MEQ/L (3.6-5); SODIUM 141 MEQ/L (134-144)
--- NOTE | 2016-08-20 05:45 | NUR ---
Pain reassess Pt no longer has furrowed brow at this time. Pt resting quietly in bed.
--- NOTE | 2016-08-20 06:27 | NUR ---
Family , Alli, calls for update regarding BP. Relayed pain meds admin during night. Discussed swallowing. Discussed day's activities.
--- NOTE | 2016-08-20 06:27 | NUR ---
BP reassess Pt BP 5 min after Labetalol admin was 169/90. Pt BP at 0600 was 180/99. After sched Hydralazine and position change, then BP is now 139/71.
--- NOTE | 2016-08-20 06:29 | NUR ---
Status Pt continues on RA with sats stable in upper 90's. Pt HR 60-low 100's, sinus. BP elevated, see previous notes. Pt follows commands (squeezes hands, but doesn't wiggle toes) and tracks with eyes, although swallowing delayed. Pt noted to cough a little after honey thickened water and pudding intake. Pt repositioned Q2H for comfort. Blue ankle contracture boot used to feet during night. Pt doesn't respond verbally, but occasionally smiles. Oral cares performed throughout night. Bed alarm on, will continue to monitor. Addendum: 08/20/16 at 0648 by GLENIS ORLANDO RN Stronger formulation technician with left hand, minimal formulation technician with right hand. Addendum: 08/20/16 at 0724 by GLENIS ORLANDO RN Difficult to gauge whether pt squeezes on command or if pt has reflex squeezes (when this RN puts fingers in pt hands, she will automatically squeeze).
[2016-08-20] MEDS: CLONIDINE 0.1 MG TABLET PO SCH ×2 (08:03→15:13)
[2016-08-20] MEDS: PredniSONE 20 MG TABLET PO SCH (08:03)
[2016-08-20] MEDS: BACLOFEN 10 MG TABLET PO SCH ×2 (08:04→15:13)
[2016-08-20] MEDS: AMLODIPINE 10 MG TABLET PO SCH (08:05)
[2016-08-20] MEDS: LISINOPRIL 10 MG TABLET PO SCH (08:05)
[2016-08-20] MEDS: ASPIRIN 81 MG CHEWABLE TABLET PO SCH (08:07)
--- NOTE | 2016-08-20 08:13 | DI ---
Indication: ITS.REASON: HTN PROCEDURE: US RENAL DOPPLER: Encounter: Initial Comparison: Renal ultrasound dated August 18, 2016 Findings: Scans of the kidneys demonstrate normal morphology. The right kidney measures 11 cm in length. The left kidney measures 10.3 cm in length. There is no collecting system dilatation, contour deforming mass, nephrolithiasis, or abnormal perinephric fluid collection. Color Doppler imaging demonstrates normal vascularization. Resistive indices from the intrarenal arteries in the upper, middle, and lower portions of the right kidney are normal. Resistive indices from the intrarenal arteries in the upper, middle, and lower portions of the left kidney are normal. Arterial waveforms are normal. Impression: No evidence of hemodynamically significant renal arterial stenosis. .
[2016-08-20] MEDS ORDERED: ENOXAPARIN 40 MG/0.4 ML INJECTION SQ SCH (09:00)
--- NOTE | 2016-08-20 09:50 | PNPDOC ---
CHERY BEEBE DRIVER LICENSE TECHNICIAN 08/20/16 0934: Subjective Date DATE: 08/20/16 TIME: 09:31 Subjective Mojgan is seen today in her room in [facility]U. She has just finished working with physical therapy and is sleepy. She does not respond to voice or touch. Objective Vital Signs Vital signs Vital Signs 08/19/16 08/19/16 08/20/16 08/20/16 22:00 23:00 00:00 00:00 Temp 98.9 Pulse 71 76 77 64 Resp 13 14 13 B/P 140/87 131/75 159/78 Pulse Ox 96 97 97 O2 Delivery Room Air Room Air Room Air 08/20/16 08/20/16 08/20/16 08/20/16 01:00 02:00 02:14 03:00 Pulse 60 81 81 90 Resp B/P 146/85 193/100 160/91 163/85 Pulse Ox 96 96 96 96 O2 Delivery Room Air Room Air Room Air Room Air 08/20/16 08/20/16 08/20/16 08/20/16 04:00 04:00 05:00 05:12 Temp 98.5 Pulse 66 65 85 91 Resp 10 15 22 B/P 142/62 183/96 169/90 Pulse Ox 96 96 96 O2 Delivery Room Air Room Air Room Air 08/20/16 08/20/16 08/20/16 08/20/16 06:00 06:21 07:00 08:00 Temp 98.7 Pulse 99 78 69 82 Resp 25 16 13 16 B/P 180/99 139/71 108/55 178/90 Pulse Ox 96 96 95 95 O2 Delivery Room Air Room Air Room Air Room Air Telemetry Rhythm: Sinus Rhythm Height (Feet): 5 Height (Inches): 4.00 Weight (Kilograms): 53.300 General No Acute Distress Neck (Brief) NOT FOUND: JVD, carotid bruits Respiratory (Brief) clear all [place], equal bilaterally, NOT FOUND: rales, wheezes Cardiovascular (Brief) regular rate, regular rhythm, NOT FOUND: click, gallop, murmur, pedal edema, rub Abdomen (Brief) BS normo active x4, soft, NOT FOUND: tender Integumentary (Brief) dry, pink, warm Laboratory Laboratory Laboratory Tests Test 08/18/16 11:34 08/18/16 14:30 08/18/16 16:50 08/18/16 17:50 Glucometer 114mg/dL 113mg/dL Turbidity < 20 Sodium Level 143MEQ/L Potassium Level 3.8MEQ/L Chloride Level 110MEQ/L Carbon Dioxide Level 24MEQ/L Anion Gap 9MEQ/L Blood Urea Nitrogen 20.0MG/DL Creatinine 0.6MG/DL Glomerular Filtration Rate Calc 105 BUN/Creatinine Ratio 33RATIO Glucose Level 159MG/DL Calculated Osmolality 281MOSM/KG Calcium Level 8.9MG/DL Icterus Index < 2 Chemistry Specimen Hemolysis < 15 U Kyra Duration (Vanillylmandelic) 24 Ur Total Volume (Vanillylmandelic) 750 U Collect Duration (Catecholamines) 24 Urine Total Volume (Catecholamines) 750 Test 08/19/16 00:52 08/19/16 04:07 08/19/16 06:15 08/19/16 13:04 Glucometer 84mg/dL 84mg/dL 175mg/dL White Blood Count 6.3T/MM3 Red Blood Count 3.72M/MM3 Hemoglobin 11.9GM/DL Hematocrit 35.4% Mean Corpuscular Volume 95.2UM3 Mean Corpuscular Hemoglobin 32.0UUG Mean Corpuscular Hemoglobin Concent 33.6GM/DL RDW Standard Deviation 45.0FL Platelet Count 279T/MM3 Mean Platelet Volume 9.8UM3 Neutrophils % (Manual) 68.0% Lymphocytes % (Manual) 28.0% Monocytes % (Manual) 2.0% Metamyelocytes % 1.0% Myelocytes % 1.0% Absolute Neutrophils (Manual) 4.3T/MM3 Lymphocytes # (Manual) 1.8T/MM3 Monocytes # (Manual) 0.1T/MM3 Metamyelocytes # 0.1T/MM3 Myelocytes # 0.1T/MM3 Red Cell Morphology Comment Normal Turbidity < 20 Sodium Level 142MEQ/L Potassium Level 3.4MEQ/L Chloride Level 112MEQ/L Carbon Dioxide Level 23MEQ/L Anion Gap 7MEQ/L Blood Urea Nitrogen 16.0MG/DL Creatinine 0.6MG/DL Glomerular Filtration Rate Calc 105 BUN/Creatinine Ratio 27RATIO Glucose Level 96MG/DL Calculated Osmolality 274MOSM/KG Calcium Level 8.7MG/DL Phosphorus Level 2.6MG/DL Magnesium Level 2.1MG/DL Icterus Index < 2 Albumin 2.8G/DL Thyroid Stimulating Hormone (TSH) 1.39MIU/L Chemistry Specimen Hemolysis < 15 Test 08/19/16 18:44 08/20/16 00:26 08/20/16 04:26 08/20/16 06:05 Glucometer 159mg/dL 82mg/dL 110mg/dL White Blood Count 6.8T/MM3 Red Blood Count 3.89M/MM3 Hemoglobin 12.3GM/DL Hematocrit 36.7% Mean Corpuscular Volume 94.3UM3 Mean Corpuscular Hemoglobin 31.6UUG Mean Corpuscular Hemoglobin Concent 33.5GM/DL RDW Standard Deviation 45.7FL Platelet Count 282T/MM3 Mean Platelet Volume 9.8UM3 Immature Granulocyte % (Auto) 1.9% Neutrophils (%) (Auto) 63.5% Lymphocytes (%) (Auto) 23.8% Monocytes (%) (Auto) 10.4% Eosinophils (%) (Auto) 0.3% Basophils (%) (Auto) 0.1% Absolute Immature Granulocyte (auto 0.13T/MM3 Absolute Neutrophils (auto) 4.3T/MM3 Absolute Lymphocytes (auto) 1.6T/MM3 Absolute Monocytes (auto) 0.7T/MM3 Absolute Eosinophils (auto) 0.0T/MM3 Absolute Basophils (auto) 0.0T/MM3 Turbidity < 20 Sodium Level 141MEQ/L Potassium Level 3.4MEQ/L Chloride Level 109MEQ/L Carbon Dioxide Level 25MEQ/L Anion Gap 7MEQ/L Blood Urea Nitrogen 13.0MG/DL Creatinine 0.5MG/DL Glomerular Filtration Rate Calc 130 BUN/Creatinine Ratio 26RATIO Glucose Level 110MG/DL Calculated Osmolality 272MOSM/KG Calcium Level 8.8MG/DL Icterus Index < 2 Chemistry Specimen Hemolysis < 15 Laboratory Tests 08/20/16 04:26 Laboratory Tests 08/20/16 04:26 Medications Current Medications Dexamethasone Sodium Phosphate 8 mg 8 mg O ONCE IV Last administered on 12:02; Start 08/17/16 at 11:15; Stop 08/17/16 at 11:16; Status DC Sodium Chloride (Normal Saline IV) 1,000 ml @ 100 mls/hr Q10H IV Last administered on 08/19/16 02:52; Start 08/17/16 at 11:15; Stop 08/19/16 at 07:12; Status DC Amlodipine Besylate (Norvasc) 10 mg DAILY PO Last administered on 08/20/16 08: 05; Start 08/18/16 at 09:00 Aspirin (ASA) 81 mg DAILY PO Last administered on 08/20/16 08:07; Start at 09:00 Atorvastatin Calcium (LIPITOR 40 mg) 40 mg HS PO Last administered on 08/19/16 21:16; Start 08/17/16 at 22:00 Baclofen (LIORESAL 10 mg) 5 mg TID PO Last administered on 08/20/16 08:04; Start 08/17/16 at 15:00 Bisacodyl (Dulcolax) 10 mg BID PRN RECTALLY CONSTIPATION; Start 08/17/16 at 14: 15 Citalopram Hydrobromide (Celexa) 20 mg HS PO Last administered on 08/19/16 21: 16; Start 08/17/16 at 22:00 Clonidine HCl (Catapres) 0.1 mg TID PO Last administered on 08/20/16 08:03; Start 08/17/16 at 15:00 Glucose (Glutose 15) 15 g O PRN PO HYPOGLYCEMIA; Start 08/17/16 at 14:15 Hydralazine HCl (Apresoline) 20 mg Q4H IV Last administered on 08/20/16 06:17; Start 08/17/16 at 14:15 Insulin Human Lispro (Humalog) 1 unit PRN SQ ; Start 08/17/16 at 14:15; Stop 08/17 at 14:15; Status DC Labetalol HCl (Trandate) 10 mg Q2H PRN IV SBP > 159 Last administered on 05:05; Start 08/17/16 at 14:15 Magnesium Hydroxide (Mom) 30 ml HS PRN PO CONSTIPATION; Start 08/17/16 at 14:15 Metformin HCl (Glucophage) 500 mg BIDWM PO Last administered on 08/17/16 18:13 ; Start 08/17/16 at 17:30; Stop 08/17/16 at 22:38; Status DC Nitroglycerin (Nitrostat) 0.4 mg Q5M PRN SL CHEST PAIN; Start 08/17/16 at 14:15 Ondansetron HCl (Zofran Liq) 4 mg Q6H PRN PO NAUSEA &/OR VOMITING; Start at 14:15 Ondansetron HCl (Zofran) 4 mg Q6H PRN IV NAUSEA &/OR VOMITING; Start 08/17/16 at 14:15 Pantoprazole Sodium (Protonix) 40 mg HS PO Last administered on 08/19/16 21:16 ; Start 08/17/16 at 22:00 Polyethylene Glycol (Miralax) 17 g BID PRN PO CONSTIPATION; Start 08/17/16 at 14 :15 Prednisone (PredniSONE) 40 mg WB PO Last administered on 08/20/16 08:03; Start 08/18/16 at 08:00; Stop 08/21/16 at 09:00 Tamsulosin HCl (FLOMAX 0.4 mg) 0.4 mg HS PO Last administered on 08/19/16 21:16 ; Start 08/17/16 at 22:00 Acetaminophen (Tylenol Regular Strength) 650 mg Q4H PRN PO PAIN/FEVER Last administered on 08/20/16 04:35; Start 08/17/16 at 14:15 Glucagon (Glucagen) 1 mg O PRN IM HYPOGLYCEMIA; Start 08/17/16 at 14:15 Enoxaparin Sodium 30 mg 30 mg DAILY SQ Last administered on 08/18/16 09:17; Start 08/18/16 at 09:00; Stop 08/19/16 at 12:09; Status DC Sodium Chloride (NS) 500 ml @ 250 mls/hr Q2H IV Last administered on 08/18/16 08:45; Start 08/18/16 at 08:45; Stop 08/18/16 at 10:44; Status DC Metoprolol Tartrate (Lopressor) 2.5 mg O ONCE IV Last administered on 06:48; Start 08/19/16 at 06:45; Stop 08/19/16 at 06:48; Status DC Lisinopril (Prinivil) 10 mg DAILY PO Last administered on 08/20/16 08:05; Start 08/19/16 at 09:00 Potassium Chloride (Kdur) 10 meq TIDWM PO Last administered on 08/19/16 17:51; Start 08/19/16 at 08:00; Stop 08/19/16 at 23:55; Status DC Enoxaparin Sodium (Lovenox) 40 mg DAILY SQ Last administered on 08/20/16 08:05 ; Start 08/20/16 at 09:00 Radiology DATE OF EXAM: 08/19/16 ORDERING DOCTOR: CHERY BEEBE APRN TYPE OF EXAM: US RENAL DOPPLER REASON FOR EXAM: HTN Indication: ITS.REASON: HTN PROCEDURE: US RENAL DOPPLER: Encounter: Initial Comparison: Renal ultrasound dated August 18, 2016 Findings: Scans of the kidneys demonstrate normal morphology. The right kidney measures 11 cm in length. The left kidney measures 10.3 cm in length. There is no collecting system dilatation, contour deforming mass, nephrolithiasis, or abnormal perinephric fluid collection. Color Doppler imaging demonstrates normal vascularization. Resistive indices from the intrarenal arteries in the upper, middle, and lower portions of the right kidney are normal. Resistive indices from the intrarenal arteries in the upper, middle, and lower portions of the left kidney are normal. Arterial waveforms are normal. Impression: No evidence of hemodynamically significant renal arterial stenosis. Assessment & Plan Problems: (1) Atrial fibrillation, currently in sinus rhythm Status: Acute Assessment & Plan: Check TSH. Remains in SR per tele, continue to monitor. (2) Hemorrhagic cerebrovascular accident (CVA) Status: Acute Assessment & Plan: per attending (3) Resistant hypertension Status: Acute Assessment & Plan: Renal Duplex, Echocardiogram ordered. Check blood pressure in arm and thigh at same time X1 (4) Embolic stroke Status: Acute Qualifiers: Precerebral and cerebral artery: unspecified precerebral artery Qualified Codes: I63.10 - Cerebral infarction due to embolism of unspecified precerebral artery (5) Vasculitis Status: Acute (6) Hypercholesteremia Status: Chronic Plan/Intensity of Service 08/19/16 AFIB: Telemetry showed afib with aberrancy. Check TSH. Remains in SR per tele, continue to monitor. HTN: Renal Duplex, Echocardiogram ordered. Check blood pressure in arm and thigh at same time X1. 08/20/16 D/C metoprolol and start Labetalol 150mg BID, starting this evening. Continue to monitor. Thank you for allowing us to participate in the care of this patient. We will follow along with you. YAMILKA SMITH MD 08/23/16 1525: Assessment & Plan Plan/Intensity of Service After examining the patient I agree with the above assessment. I am involved in the formulation of the patient's plan of care. CHERY BEEBE DRIVER LICENSE TECHNICIAN Aug 20, 2016 09:34 YAMILKA SMITH MD Aug 23, 2016 15:25
--- NOTE | 2016-08-20 11:18 | NUR ---
CM CM SPOKE WITH DR DOAN AND PT WILL D/C BACK TO IR TODAY. CM LEFT MESSAGE FOR IRU [employer]GER REGARDING ANTICIPATED D/C BACK TO IRU TODAY FOR EARLY AFTERNOON. CM SPOKE WITH PT SPOUSE DOUGLAS AND HE IS AWARE OF D/C PLAN BACK TO IRU TODAY. SPOUSE IS AWARE TO CONTACT CM IF NEEDS [facility]. SPOUSE IS AWARE OF WHO IRU CM IS.
--- NOTE | 2016-08-20 11:46 | NUR ---
Speech therapy attempted. Pt was extremely fatigued following PT. No alert enough for feeding trial.
--- NOTE | 2016-08-20 13:02 | ECHOF ---
DATE OF PROCEDURE August 19, 2016 REFERRING PHYSICIAN Linnette Fernandez MD This is a two-dimensional echo with spectral Doppler, color-flow and M-mode. It was obtained in a patient with hypertension and paroxysmal atrial fibrillation. Left atrial dimension is normal. Left ventricle end-diastolic dimension is normal. Left ventricular wall thickness is normal. LV systolic function is normal with ejection fraction of about 60%. Right atrium is normal. Right ventricle is normal. Aortic root dimension is normal. Mitral valve is normal. Aortic valve was not visualized well but Doppler studies indicate no stenosis or insufficiency. Tricuspid valve shows trace of tricuspid regurgitation with normal estimated pulmonary artery systolic pressure of 22. Pulmonary valve shows no pulmonary insufficiency. There is no pericardial effusion. IMPRESSION 1. Normal LV systolic function with ejection fraction of 60%. 2. Trace of mitral regurgitation. 3. Trace of tricuspid regurgitation with normal estimated pulmonary artery systolic pressure of 22. MTDD
[2016-08-20] MEDS ORDERED: BACL10TA PO (13:36)
[2016-08-20] MEDS ORDERED: POTASSIUM CHLORIDE 10 MEQ TABLET PO ONE (13:45)
[2016-08-20] MEDS ORDERED: LABE100T PO (14:39)
[2016-08-20] MEDS: POTASSIUM CHLORIDE 10 MEQ, LIDOCAINE 1% 10 MG in NORMAL SALINE 100 ML IV SCH ×2 (15:05→16:15)
[2016-08-20] MEDS ORDERED: SENNA + DOCUSATE TAB PO ONE (15:30)
--- NOTE | 2016-08-20 16:00 | NUR ---
Report: is given to Donna JONES/SHYLA. Potassium: IV bolus continues as ordered. Addendum: 08/20/16 at 1750 by KAYLEN CLARKE RN Nutrition: the patient slept heavily throughout this afternoon. She is awake now and is being fed by the patient's . She eats ice chips intermittently with the magic cup. Addendum: 08/20/16 at 1750 by KAYLEN CLARKE RN Nutrition: swallowing is slow.
--- NOTE | 2016-08-20 16:30 | NUR ---
Transfer: to IRU per bed. She is transferred to the IRU bed per slide board and x 4 staff assisting. Report is given at the bedside. The patient's belongings, picture board, bible...etc all transferred with the patient. The is present for the transfer.
--- NOTE | 2016-08-20 20:34 | DSPDOC ---
General Date Date DATE: 08/20/16 TIME: 20:02 Attending Physician Linnette Fernandez MD Admitting Physician Linnette Fernandez MD Consulting Physician Anders Pinon MD Admitting Diagnosis Altered mental status, hemorrhagic stroke Discharge Diagnosis Left thalamic hemorrhagic stroke-3 weeks prior to admission Altered mental status/profound somnolence Hypertension, resistant Acute kidney injury Urinary retention Malnutrition Hypertonia Hyperglycemia Hypokalemia Procedures Echocardiogram on 08/19/16 revealed ejection fraction of 60% with normal systolic function, trace mitral regurgitation and trace tricuspid regurgitation Laboratory Laboratory Tests Test 08/19/16 13:04 08/19/16 18:44 08/20/16 00:26 08/20/16 04:26 Glucometer 175mg/dL (65-110) 159mg/dL (65-110) 82mg/dL (65-110) White Blood Count 6.8T/MM3 (4.5-11.0) Red Blood Count 3.89M/MM3 (4.00-5.20) Hemoglobin 12.3GM/DL (12-16) Hematocrit 36.7% (36-46) Mean Corpuscular Volume 94.3UM3 (80-100) Mean Corpuscular Hemoglobin 31.6UUG (26-34) Mean Corpuscular Hemoglobin Concent 33.5GM/DL (31-37) RDW Standard Deviation 45.7FL (36.9-50.2) Platelet Count 282T/MM3 (130-400) Mean Platelet Volume 9.8UM3 (9.4-12.4) Immature Granulocyte % (Auto) 1.9% (0.0-0.5) Neutrophils (%) (Auto) 63.5% (33-66) Lymphocytes (%) (Auto) 23.8% (23-45) Monocytes (%) (Auto) 10.4% (0-9.0) Eosinophils (%) (Auto) 0.3% (0-4) Basophils (%) (Auto) 0.1% (0-2) Absolute Immature Granulocyte (auto 0.13T/MM3 (0.00-0.03) Absolute Neutrophils (auto) 4.3T/MM3 (1.8-7.7) Absolute Lymphocytes (auto) 1.6T/MM3 (1-4.8) Absolute Monocytes (auto) 0.7T/MM3 (0-0.8) Absolute Eosinophils (auto) 0.0T/MM3 (0-0.5) Absolute Basophils (auto) 0.0T/MM3 (0-0.2) Turbidity < 20 (0-20) Sodium Level 141MEQ/L (134-144) Potassium Level 3.4MEQ/L (3.6-5) Chloride Level 109MEQ/L (98-107) Carbon Dioxide Level 25MEQ/L (22-30) Anion Gap 7MEQ/L (5-15) Blood Urea Nitrogen 13.0MG/DL (7-17) Creatinine 0.5MG/DL (0.7-1.2) Glomerular Filtration Rate Calc 130 BUN/Creatinine Ratio 26RATIO (6-26) Glucose Level 110MG/DL (65-110) Calculated Osmolality 272MOSM/KG (261-280) Calcium Level 8.8MG/DL (8.4-10.2) Icterus Index < 2 (0-7) Chemistry Specimen Hemolysis < 15 (0-25) Test 08/20/16 06:05 08/20/16 11:21 Glucometer 110mg/dL (65-110) 130mg/dL (65-110) Pre-albumin 33.7 B 12 > 1000, folic acid 16.7 TSH 1.39, GENE negative, C4 24, C3 pending 24 hour catecholamine studies pending Radiology CT of head obtained immediately prior to transfer to CCU on 08/17 demonstrated resolving left thalamic and basal ganglia hemorrhage, decreased intraventricular blood compared to films on 07/25/16. No hydrocephalus described. Chest x-ray on 08/17 without acute cardiopulmonary abnormality KUB on 08/18 was unremarkable Renal sonogram on 08/18 demonstrated normal-sized kidneys without obstruction. Renal Doppler on 08/19 was without evidence of hemodynamically significant renal artery stenosis and waveforms were normal. History of Present Illness HPI - Adult Date DATE: 08/16/16 TIME: 16:07 General History of Present Illness Patient is a 51-year-old female who was brought to [facility] emergency room on 07/25/16 for sudden onset of expressive aphasia. She was found extremely hypertensive at that time 275/[address] scan revealed an acute intraparenchymal hemorrhage CVA with 6mm left to right midline shift. She was also found to have numerous scattered areas of ischemia and multiple intracranial vascular territories likely embolic. She was transferred acutely to [facility] where she has been for the past 3 weeks. During her stay at [facility] she was placed on the ventilator due to acute respiratory failure and subsequently developed ventilator associated pneumonia, Pseudomonas and was extubated on 08/08/16. Sputum culture was positive for Pseudomonas Aeruginosa and Ecoli on 08/06/16 and she has completed her antibiotic course. She has been on Norvasc 10 milligrams daily, clonidine 0.1 milligrams 3 times a day, hydralazine 20 milligrams every 4 hours, lisinopril 10 milligrams daily, metoprolol 200 milligrams twice a day along with when necessary hydralazine and labetalol for aggressive blood pressure control. She underwent a 4 vessel angio on 08/01/16 revealing scattered areas of vascular irregularity suspicious for vasculitis, she was then placed on steroids. Her ANCA (Anti- neutrophil Cytoplasmic antibody) was found to be negative. . She did have hydrocephalus with elevated opening pressure and EVD was placed on 08/02, this was removed on . She was placed on Seroquel several days ago in attempt to assist with sleeping however it was significantly sedating and affected her verbal response, as well as ability to work with therapy. This was discontinued prior to discharge. 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 She was seeking natural pathic treatments and medications for her symptoms as well as blood pressure prior to this event. Mojgan is seen today for initial examination on arrival to the rehabilitation unit. She is alert with her eyes open and makes eye contact during examination, however, is nonverbal. She will smile briefly and is able to squeeze with left hand and wiggle the right toes. Otherwise, unable to follow commands. 08/17/2016- Patient developed acute mental status change and became unresponsive to deep painful stimuli in the IRU. Due to concern for recurrence of acute intracranial pathology, a stat CT of the head was obtained, and compared to prior imaging. Please see notes from both Dr. Fernandez and myself re: extended critical care time. Dr. Fernandez was able to touch base with physician at [facility], who confirmed CT today with prior imaging. They did not feel that this was much different from prior testing. Past medical records from [facility] were reviewed carefully during today's events. Will continue to monitor in ICU at this point. Hospital Course 08/17/16- Paty *Thalamic ICH/SAH- Extensive hospitalization. AMS concerning for recurrence. Case discussed by Dr. Fernandez with tele-stroke team, [facility] staff previously caring for patient. Continue current plan of care. Pt. did wake up after decadron- unclear if this is more due to edema or medication related. Decreased dose of baclofen (spasticity). Recent increase in Celexa- may need to decrease or hold. If persistent, recurrent AMS, consider change from prednisone to Decadron IV. *Embolic stroke, concerning for vasculitis-continue Prednisone taper. Has a follow up angiogram scheduled to reassess. ANCA was negative. Assess GENE, C3/C4, ESR to R/O lupus related vasculitis. ASA, Statin. *Resistant HTN- concern for Pheochromocytoma. Recheck VMA, Urine catecholamines & metanephrines 24 hour urine. Orders entered. If positive, may need MIBG scan. Dr. Yepez follow up- endocrine or consult local. Avoid excessive lowering- hold Clonidine if SBP less than 140. *Urinary retention- Continue Dubose, Flomax. UA ok. *Hyperglycemia- likely related to steroids. Assess BG. Continue metformin BID for now. *Hx of hydrocephalus- films reviewed by [facility] team. *DVT px- LMWH Code status: full code. 08/17/2016-Dr. Fernandez I spoke with Dr. Pollard neuro-stencil cutter at [facility] this morning. He was able to review our CAT scan done this morning and compare it to previous brain imaging from [facility] during her stay. He stated that he did not see any changes. By the time I spoke with him the patient was awakening and starting to be responsive. Her vital signs remained stable during this episode of unresponsiveness. The patient's stated that she was having episodes of extreme fatigue and unresponsiveness at [facility] as well. The patient had received baclofen prior to becoming unresponsive and we will decrease this dose and see if she can stay more responsive. I did go back to evaluate the patient this evening and her nurse stated she had been more alert today and even said "okay" today. She has been eating and drinking well and vitals have remained stable. We will continue to monitor in ICU overnight and possibly transfer back to inpatient rehabilitation tomorrow if she remains stable. 08/18/2016 Impression Intracranial hemorrhage 3 weeks ago Altered mental status on 08/17/2016-CT head showed no significant changes per Deric neuro-stencil cutter, no recurrence of nonresponsiveness baclofen decreased Acute kidney injury with rising creatinine to 1.5 from 0.6 yesterday. This is of uncertain etiology. She is not on any new medications. She has been on normal saline at 100 and hour since yesterday morning. Dubose catheter is in place. Will discontinue lisinopril. Metformin was discontinued last night. We' ll check a renal sonogram and CPK. Will give a 500 cc normal saline bolus over 2 hours. No hypotension yesterday. Blood pressures ranged from 100 systolic to 160 systolic Resistant hypertension-continue current medications are lisinopril. Workup for pheochromocytoma in progress Urinary retention-patient has had Dubose catheter prior to admission at [facility]. She is on Flomax Malnutrition-encourage by mouth intake. Dobbhoff was removed prior to transfer to [facility] Hypertonia-baclofen decreased August 17 due to altered mental status Possible vasculitis-workup in progress Orirdbljmbcit-hfhnuifg-exfcnl secondary to steroids-metformin discontinued 08/18 Ventilator associated pneumonia [facility]-finished antibiotic treatment Hydrocephalus-status post EVD placement and removal Greater than 45 minutes of critical care time spent seeing and evaluating the patient. 08/19/16-Fernandez Intracranial hemorrhage 3 weeks ago Altered mental status on 08/17/2016-CT head showed no significant changes per Deric neuro-stencil cutter, no recurrence of nonresponsiveness baclofen decreased- the patient is more awake today but does have episodes of somnolence where she is difficult to arouse. This type of fluctuation of level of consciousness is not unusual in patients with history of stroke. If she continues to have increasing muscle stiffness we may consider increasing baclofen back to 10 mg 3 times a day and monitoring for excessive drowsiness. Acute kidney injury-resolved. This likely secondary to dehydration off of fluids in Dobbhoff tube. Lisinopril will be restarted. It was held because of acute kidney injury yesterday. Resistant hypertension-restart lisinopril. Continue to monitor in CCU until blood pressure a little more stable, then can transfer back to CCU with otherwise stable. Workup for pheochromocytoma in progress Urinary retention-patient has had Dubose catheter prior to admission at [facility]. She is on Flomax Malnutrition-encourage by mouth intake. Dobbhoff was removed prior to transfer to [facility]. Consult the dietitian for three-day calorie count and calorie recommendations as well as fluid intake recommendations Hypertonia-baclofen decreased August 17 due to altered mental status. Consider increasing if she continues to have increased muscle tone Possible vasculitis-workup in progress. Patient is on a steroid taper. Follow- up has been scheduled regarding possible vasculitis. Woduqxjwwaeoy-ozkrqsim-pzfhxj secondary to steroids-metformin discontinued 08/18 Ventilator associated pneumonia [facility]-finished antibiotic treatment 08/20/16-discharge Mrs. Wellington took approximately 170 moses orally for breakfast and was able to stand at the edge of the bed briefly with physical therapy prior to my evaluation. Nursing reported that following therapy the patient was very fatigued and minimally responsive. She did not respond to questions when seen although withdrew to painful stimuli in all extremities (minimal response in the right lower extremity compared to others) and only fluttered her eyes open briefly when her name was called at the end of my exam. Blood pressures have remained moderately elevated requiring administration of IV medications overnight. Nursing reports some atrial ectopy overnight and good urine output. On examination oral membranes are dry. There is mild chewing motion spontaneously. At rest the left eye is deviated up and out but when actively stimulated gaze is conjugate. Respirations are nonlabored and anterior lung jurado are clear. Cardiac rhythm is regular. The patient has increased motor tone in the upper extremities and withdraws both arms and the left leg to stimulation of the extremities distally. There is minimal movement in the right leg to stimulation although minor contraction in the muscles is noted. Mild left nasolabial fold flattening is present. Discussed with cardiology-metoprolol switch to labetalol to improve blood pressure control, renal function stable with resumption of lisinopril. Stable to transfer back to IRU today continue more aggressive therapy post stroke. I am concerned that oral intake may be an adequate to permit adequate nutrition and will discuss probable need for G-tube with the patient's in upcoming days. Continue to monitor intake closely. Thus far patient has been taking oral medications. Hypokalemia present today, supplemented IV and reassess tomorrow after transfer to rehabilitation. Baclofen increased slightly to 5 mg 4 times daily to improve motor tone. May require further adjustment. Mental status/somnolence continues to fluctuate significantly. Will decrease Celexa to 10 mg daily on transfer to rehabilitation and reevaluate as this was previously suggested. Can reconsider IV steroids if no improvement in upcoming days. Catechols studies pending at discharge. Scheduled for 4 vessel angiogram at [facility] 09/02/16 at 9:30 AM. Needs follow-up with Dr. Hopkins in approximately [address] head prior to visit. >30 minutes spent on patient care and discharge care coordination today on the date of discharge. -- Problems: (1) Altered mental status Status: Acute Assessment & Plan: Neurology appt Dr. Diez 08/27/16 @ 0930; Scheduled with Dr. Acevedo 09/23/16 @ 10:30 am. (2) ICH (intracerebral hemorrhage) Status: Chronic Assessment & Plan: Left Thalamic bleed with mass effect. 4V angiogram is scheduled at [facility] 09/02/16 @ 0930, arrive 45 min early (3) Embolic stroke Status: Acute Assessment & Plan: Multiple sites. (4) VAP (ventilator-associated pneumonia) Onset Date: ~ 08/08/2016 Status: Resolved Assessment & Plan: Initial: Staph Aureus/Beta hemolytic strep Second: PSA/E.Coli (5) Urinary retention Status: Chronic Assessment & Plan: Did not tolerate Dubose removal. (6) Resistant hypertension Status: Acute Assessment & Plan: Concern for Pheochromocytoma. Consult for Dr. Yepez ( Med- Endocrine) Seen by Dr. Mark Castrejon at [facility] (7) Malnutrition Status: Chronic (8) Hydrocephalus Status: Resolved Assessment & Plan: s/p EVD 07/29/16-08/05/16 (Kellie) Follow up with Dr. Hopkins in 6-[address] scan prior to visit. (9) History of Rafa-Lyles virus infection Status: Resolved Assessment & Plan: Mar 2016 (10) Vasculitis Status: Acute Assessment & Plan: Possible- R/O. (11) Hypertonia Status: Acute (12) Hypokalemia Status: Acute Code Status Full Code Home Meds Active Scripts Labetalol HCl (Labetalol HCl) 100 Mg Tablet, 150 MG PO BID for hypertension for 30 Days, #90 TAB Prov:SILVIO DOAN MD 08/20/16 Baclofen (Baclofen) 10 Mg Tablet, 5 MG PO QID for 28 Days, #56 TAB Prov:SILVIO DOAN MD 08/20/16 Reported Medications Docusate Sodium (Docusate Sodium) 100 Mg Capsule, 1 CAP PO BID, #30 CAP 08/17/16 Tamsulosin HCl (Tamsulosin HCl) 0.4 Mg Cap.er.24h, 0.4 MG PO HS 08/16/16 Glucagon,Human Recombinant (Glucagon Emergency Kit) 1 Mg/Kit Syringe, 1 MG IM O Y for HYPOGLYCEMIA 08/16/16 Prednisone (Prednisone) 20 Mg Tablet, 20 MG PO WB start 09/05/16 08/16/16 Prednisone (Prednisone) 10 Mg Tablet, 30 MG PO WB start 08/22/16 08/16/16 Prednisone (Prednisone) 20 Mg Tablet, 40 MG PO WB 08/16/16 Pantoprazole Sodium (Pantoprazole Sodium) 40 Mg Tablet.dr, 40 MG PO HS 08/16/16 Ondansetron HCl (Ondansetron HCl) 4 Mg/5 Ml Solution, 4 MG PO Q6H Y for NAUSEA & /OR VOMITING 08/16/16 Ondansetron HCl/Pf (Ondansetron HCl 4 mg/2 ml Vial) 4 Mg/2 Ml Vial, 4 MG IV Q6H Y for NAUSEA &/OR VOMITING 08/16/16 Polyethylene Glycol 3350 (Miralax) 17 Gm Powd.pack, 17 G PO BID Y for CONSTIPATION 08/16/16 Bisacodyl (Bisacodyl) 10 Mg Supp.rect, 10 MG RECTALLY BID Y for CONSTIPATION 08/16/16 Magnesium Hydroxide (Milk of Magnesia) 400 Mg/5 Ml Oral.susp, 30 ML PO HS Y for CONSTIPATION 08/16/16 Dextrose (Glucose Gel) 38 Gm Gel..gram., 15 GM PO O Y for HYPOGLYCEMIA 08/16/16 Citalopram Hydrobromide (Citalopram HBr) 20 Mg Tablet, 20 MG PO HS 08/16/16 Acetaminophen (Acetaminophen) 160 Mg/5 Ml Liquid, 650 MG PO Q4H Y for PAIN/FEVER 08/16/16 Aspirin (Aspirin) 81 Mg Tab.chew, 81 MG PO DAILY 08/16/16 Lisinopril (Lisinopril) 10 Mg Tablet, 10 MG PO DAILY 08/16/16 Amlodipine Besylate (Amlodipine Besylate) 10 Mg Tablet, 10 MG PO DAILY 08/16/16 Labetalol HCl (Labetalol HCl) 20 Mg/4 Ml Syringe, 10 MG IV Q2H Y for PRN ORDERS 08/16/16 Nitroglycerin (Nitroglycerin) 0.4 Mg Tab.subl, 0.4 MG SL Q5M Y for CHEST PAIN 08/16/16 Hydralazine HCl (Hydralazine HCl) 20 Mg/1 Ml Vial, 20 MG PO Q4H 08/16/16 Clonidine HCl (Clonidine HCl) 0.1 Mg Tablet, 0.1 MG PO TID 08/16/16 Hydralazine HCl (Hydralazine HCl) 20 Mg/1 Ml Vial, 10 MG IV Q2H Y for PRN ORDERS 08/16/16 Atorvastatin Calcium (Atorvastatin Calcium) 40 Mg Tablet, 40 MG PO HS 08/16/16 Enoxaparin Sodium (Enoxaparin Sodium) 40 Mg/0.4 Ml Syringe, 40 MG SQ DAILY 08/16/16 Discontinued Reported Medications Metformin HCl (Metformin HCl) 500 Mg Tablet, 500 MG PO BIDWM 08/16/16 Insulin Lispro (Humalog) 100 Unit/Ml Inj, 1 UNIT SQ PRN 08/16/16 Metoprolol Tartrate (Metoprolol Tartrate) 100 Mg Tablet, 200 MG PO BIDWM 08/16/16 Baclofen (Baclofen) 10 Mg Tablet, 10 MG PO TID 08/16/16 Face to Face Encounter I met with patient on the day of dismissal and discussed follow up appointments , medications, and safety plan. Discharge Disposition IRU Copies To 1: ANDERS PINON MD; JAROCHO GORDON MD Documentation Requirements Documenting Diagnosis Altered Mental Status, Malnutrition, Pneumonia (previously treated, not active issue), Renal Insufficiency Alt. Mental Status/Confusion Check if condition above is: Acute Renal Insufficiency Renal Insufficiency: Acute Renal Failure SILVIO DOAN MD Aug 20, 2016 20:15
[2016-08-20] MEDS ORDERED: LABETALOL 100 MG TABLET PO SCH (21:00)
--- NOTE | 2016-08-21 08:01 | STDAILYN ---
Discharge Note Date/Time DATE: 08/21/16 TIME: 07:59 Discharge From: Inpatient ST Discharge Destination: [facility] Other Reasons for Discharge: transfer to IRU Barriers to Achieving Outcomes: Pt's Medical Condition Discharge Summary: Pt was transferred to IRU on 08/20/16. Recommend continuation of speech therapy. Recommended Follow-up: Cont. Therapy in [place] SALEEM Teresa MS CCC-TRUCKING MANAGER Aug 21, 2016 08:01
--- NOTE | 2016-08-21 08:04 | STDAILYN ---
ST Daily Note Date/Time DATE: 08/20/16 TIME: 14:17 Subjective Comment Upon arrival, patient was laying down in bed sleeping. After repositioning upright in bed, patient remained asleep. was present for entire session and agreed to having graduate clinician, Gina, provide therapy while being supervised by MARKETING FORECASTER Shell. Orientations: Not Alert, Lethargic Chief Complaint: ICH, Dysphagia, Aphasia, nonverbal Pain: No (Pt. could not report any pain) Was Patient Education Provided: Yes Person(s) Educated: Spouse/significant other () Education Subject: Treatment Plan Instruction Understanding Demo: Famly/Cargvr verb underst Education Comment Patient was asleep and unable to awaken. was educated on treatment plan and instructed in use of alternating cold and warm pureed substance for thermal tactile stimulation when patient becomes alert to provide nourishment. verbalized understanding. Discussion of calorie/fluid intake took place. *Speech Therapy Impressions Body Designer Goal: Pt will maintain nutrition and hydration of the least restrictive diet while demonstrating no s/s of aspiration for 3 consecutive trials. Short Term Goal: Pt will produce dry swallow within 10 seconds following thermal stimulation on 8/10 trials. Pt will consume a pureed diet with honey liquids (6 small meals) without outward signs of aspiration in 3/3 of trials. Pt will demonstrate 3/3 components necessary for a safe swallow as listed from the following: prompt swallow, throat clearing, increased mastication. Pt will implement compensatory feeding strategies in 3 feeding trials using small bites,slow rate, alternating solids and liquids. Patient was laying down sleeping in bed upon arrival. Patient was repositioned upright in bed for therapy. Clinicians utilized a glycerin swab on lips to elicit thermal stimulation. Patient remained asleep; however, labial and lingual movement was observed. attempted to wake up patient by turning on more room lights and massaging patient's back and arms. Patient still lethargic. Clinician trialed a spoon of magic cup by taking a spoon and tapping against patient's lips. No response from patient. Trials discontinued. was educated on thermal stimulation when patient awakens. No oral intake during this session. ST Treatment Plan: Swallow Retraining, Swallow Precautions, Modified Diet ST Treatment Plan Frequency: five times per week Treatment Plan Duration: two weeks Plan of Care Comment: Continue Plan of Care Start Treatment 1: 13:40 Stop Treatment 1: 14:00 Treatment Duration : ST Treatment Charge: Swallow Treatment Minutes of Individual Therapy: 20 GINA LAMAR Aug 20, 2016 14:21
[2016-08-21] MEDS ORDERED: LISINOPRIL 10 MG TABLET PO SCH (09:00)
[2016-08-21] MEDS ORDERED: LISINOPRIL 20 MG TABLET PO SCH (09:00)
[2016-08-22] MEDS ORDERED: PredniSONE 10 MG TABLET PO SCH (08:00)
[2016-08-29] MEDS ORDERED: PredniSONE 20 MG TABLET PO SCH (08:00)
== END 2016-08-20 16:30 | DRG 65 ==
LOC: CCU 10:19
PROVIDERS: ADMIT Internal Medicine; ATTEND Internal Medicine
DX: I61.8 Other nontraumatic intracerebral hemorrhage (principal); E46 Unspecified protein-calorie malnutrition; Z68.1 Body mass index [BMI] 19.9 or less, adult; I67.7 Cerebral arteritis, not elsewhere classified; N17.9 Acute kidney failure, unspecified; R41.82 Altered mental status, unspecified; I10 Essential (primary) hypertension; I48.91 Unspecified atrial fibrillation; R73.9 Hyperglycemia, unspecified; E87.6 Hypokalemia; E78.5 Hyperlipidemia, unspecified; R33.9 Retention of urine, unspecified; Z79.52 Long term (current) use of systemic steroids; Z79.82 Long term (current) use of aspirin
CPT/HCPCS: 36415; 36600; 80048; 80053; 80069; 81003; 82384; 82550; 82570; 82607; 82746; 82948; 83735; 83835; 84100; 84134; 84443; 84585; 85007; 85025; 85027; 85652; 86038; 86161; 93005; 93306

== ENCOUNTER 2016-08-20 16:30 | Inpatient (IN) ==
[2016-10-17] MEDS ORDERED: ONDANSETRON 4 MG/5 ML ORAL LIQUID PO PRN (05:00)
[2016-10-17] MEDS ORDERED: ACETAMINOPHEN 325 MG SUPPOSITORY PR PRN (05:00)
[2016-10-17] MEDS ORDERED: BISACODYL 10 MG SUPPOSITORY RECTALLY PRN (05:00)
[2016-10-17] MEDS ORDERED: GLUCOSE ORAL GEL 40% 37.5gm PO PRN (05:00)
[2016-10-17] MEDS ORDERED: NITROGLYCERIN 0.4 MG SUBLINGUAL TABLET SL PRN (05:00)
[2016-10-17] MEDS ORDERED: FLUTICASONE NASAL SPRAY 50mcg EA NOSTRIL PRN (05:00)
[2016-10-17] MEDS ORDERED: GLUCAGON 1 MG INJECTION IM PRN (05:00)
[2016-10-17] MEDS ORDERED: HYDROCODONE/APAP 5mg/325mg TABLET PO PRN (05:00)
[2016-10-17] MEDS ORDERED: POLYETHYL GLYCOL 3350 17gm PACKET PO PRN (05:00)
[2016-10-17] MEDS: HYDRALAZINE 25 MG TABLET PO SCH ×3 (09:04→19:49)
[2016-10-17] MEDS: AMLODIPINE 10 MG TABLET PO SCH (09:06)
[2016-10-17] MEDS: ENOXAPARIN 40 MG/0.4 ML INJECTION SQ SCH (09:07)
[2016-10-17] MEDS: LABETALOL 100 MG TABLET PO SCH ×2 (09:07→21:31)
[2016-10-17] MEDS: ASPIRIN 81 MG CHEWABLE TABLET PO SCH (09:09)
[2016-10-17] MEDS: BACLOFEN 10 MG TABLET PO SCH ×3 (09:09→21:31)
[2016-10-17] MEDS: ACETAMINOPHEN 325 MG TABLET PO PRN ×2 (09:10→18:34)
[2016-10-17] MEDS: SENNA + DOCUSATE TABLET PO SCH ×2 (09:11→21:31)
[2016-10-17] MEDS: DIVALPROEX SPRINKLE 125 MG CAPSULE PO SCH ×2 (09:12→21:30)
[2016-10-17] MEDS: DOCUSATE SODIUM 100 MG CAPSULE PO SCH ×2 (09:12→21:30)
[2016-10-17] MEDS ORDERED: Pharmacy Consult for Fall Risk MC PRN (11:57)
[2016-10-17] MEDS: OMEGA-3 ACID ESTERS 1 GM CAPSULE PO SCH (21:29)
[2016-10-17] MEDS: CITALOPRAM 10 MG TABLET PO SCH (21:31)
[2016-10-17] MEDS: LISINOPRIL 20 MG TABLET PO SCH (21:32)
[2016-10-17] MEDS: PANTOPRAZOLE 40 MG TABLET PO SCH (21:33)
[2016-10-17] MEDS: ATORVASTATIN 40 MG TABLET PO SCH (21:34)
[2016-10-18] MEDS: HYDRALAZINE 25 MG TABLET PO SCH ×4 (00:01→23:49)
[2016-10-18] MEDS: DOCUSATE SODIUM 100 MG CAPSULE PO SCH ×2 (08:19→20:54)
[2016-10-18] MEDS: DIVALPROEX SPRINKLE 125 MG CAPSULE PO SCH ×2 (08:19→20:55)
[2016-10-18] MEDS: BACLOFEN 10 MG TABLET PO SCH ×3 (08:22→20:55)
[2016-10-18] MEDS: SENNA + DOCUSATE TABLET PO SCH ×2 (08:24→20:57)
[2016-10-18] MEDS: LABETALOL 100 MG TABLET PO SCH ×2 (08:24→20:52)
[2016-10-18] MEDS: AMLODIPINE 10 MG TABLET PO SCH (08:24)
[2016-10-18] MEDS: ASPIRIN 81 MG CHEWABLE TABLET PO SCH (08:26)
[2016-10-18] MEDS: ENOXAPARIN 40 MG/0.4 ML INJECTION SQ SCH (09:29)
[2016-10-18] MEDS: ACETAMINOPHEN 325 MG TABLET PO PRN (19:39)
[2016-10-18] MEDS: CITALOPRAM 10 MG TABLET PO SCH ×2 (20:54→21:49)
[2016-10-18] MEDS: LISINOPRIL 20 MG TABLET PO SCH ×2 (20:55→21:49)
[2016-10-18] MEDS: PANTOPRAZOLE 40 MG TABLET PO SCH ×2 (20:56→21:49)
[2016-10-18] MEDS: OMEGA-3 ACID ESTERS 1 GM CAPSULE PO SCH (21:03)
[2016-10-18] MEDS: ATORVASTATIN 40 MG TABLET PO SCH (21:36)
[2016-10-19] MEDS: HYDRALAZINE 25 MG TABLET PO SCH ×2 (08:38→15:48)
[2016-10-19] MEDS: DIVALPROEX SPRINKLE 125 MG CAPSULE PO SCH ×2 (08:39→21:01)
[2016-10-19] MEDS: DOCUSATE SODIUM 100 MG CAPSULE PO SCH ×2 (08:39→21:03)
[2016-10-19] MEDS: ASPIRIN 81 MG CHEWABLE TABLET PO SCH (08:39)
[2016-10-19] MEDS: BACLOFEN 10 MG TABLET PO SCH ×3 (08:40→21:03)
[2016-10-19] MEDS: LABETALOL 100 MG TABLET PO SCH ×2 (08:40→21:02)
[2016-10-19] MEDS: AMLODIPINE 10 MG TABLET PO SCH (08:40)
[2016-10-19] MEDS: ENOXAPARIN 40 MG/0.4 ML INJECTION SQ SCH (08:40)
[2016-10-19] MEDS: SENNA + DOCUSATE TABLET PO SCH ×2 (08:41→21:02)
[2016-10-19] MEDS: ACETAMINOPHEN 325 MG TABLET PO PRN ×2 (13:38→21:15)
--- NOTE | 2016-10-19 13:57 | Progress Note ---
Subjective: Mojgan is seen today sitting up in her chair. She is alert and smiles with good eye contact. She does not verbalize during examination. She is without distress. BP this morning was 151/81. Objective Vital signs: Temp Pulse Resp BP Pulse Ox 98.6 F 86 20 151/81 H 98 10/19/16 07:43 10/19/16 07:43 10/19/16 07:43 10/19/16 07:43 10/19/16 07:43 Weight: 54 kg - Constitutional Present: no acute distress - Routine HEENT Exam Eye: Present: EOMI, PERRL ENT: Present: mucous membranes moist - Routine Respiratory Exam Present: CTA bilaterally - Routine Cardiovascular Exam Present: RRR, S1, S2 - Routine Abdominal Exam Present: soft, normoactive bowel sounds - Routine Skin Exam Present: intact - Routine Neurological Exam Present: alert, CN II-XII intact Results - Labs CBC & Chem 7: 09/30/16 06:11 10/14/16 07:44 Assessment and Plan (1) Hypernatremia Current visit: Yes Status: Acute (2) Cerebrovascular accident, hemorrhagic Current visit: Yes Status: Chronic (3) Dysphagia Current visit: Yes Status: Chronic (4) Gait disturbance, post-stroke Current visit: Yes Status: Chronic (5) HTN (hypertension) Current visit: Yes Status: Acute Assessment and Plan: 10/19/16 Continue with currently blood pressure management and monitor carefully. Current regimen including labetalol, lisinopril, hydralazine, Catapres, Norvasc Continue with current free water via feeding tube Lovenox for DVT prophylaxis Recheck BMP tomorrow to follow hypernatremia Sepsis Assessment - Evaluation Sepsis screening result: No Definite Risk - Focused Exam Vital Signs Temp Pulse Resp BP Pulse Ox 10/19/16 07:43 98.6 F 86 20 151/81 H 98 Respiratory exam: Present: CTA bilaterally Cardiovascular exam: Present: RRR, no murmur Capillary refill: < 2-3 Seconds Hospital Course Summary Disclaimer: The visit summary below is not to be considered part of the above Progress Note.
[2016-10-19] MEDS: LISINOPRIL 20 MG TABLET PO SCH (21:02)
[2016-10-19] MEDS: ATORVASTATIN 40 MG TABLET PO SCH (21:04)
[2016-10-19] MEDS: OMEGA-3 ACID ESTERS 1 GM CAPSULE PO SCH (21:05)
[2016-10-19] MEDS: CITALOPRAM 10 MG TABLET PO SCH ×2 (21:05→22:44)
[2016-10-19] MEDS: PANTOPRAZOLE 40 MG TABLET PO SCH (21:15)
[2016-10-20] MEDS: HYDRALAZINE 25 MG TABLET PO SCH ×3 (00:27→15:38)
[2016-10-20] MEDS: ENOXAPARIN 40 MG/0.4 ML INJECTION SQ SCH (08:59)
[2016-10-20] MEDS: BACLOFEN 10 MG TABLET PO SCH ×3 (09:00→21:46)
[2016-10-20] MEDS: DOCUSATE SODIUM 100 MG CAPSULE PO SCH ×2 (09:00→21:51)
[2016-10-20] MEDS: AMLODIPINE 10 MG TABLET PO SCH (09:00)
[2016-10-20] MEDS: DIVALPROEX SPRINKLE 125 MG CAPSULE PO SCH ×2 (09:00→21:45)
[2016-10-20] MEDS: SENNA + DOCUSATE TABLET PO SCH ×2 (09:00→21:46)
[2016-10-20] MEDS: LABETALOL 100 MG TABLET PO SCH ×2 (09:01→21:45)
[2016-10-20] MEDS: ASPIRIN 81 MG CHEWABLE TABLET PO SCH (09:03)
--- NOTE | 2016-10-20 12:30 | Progress Note ---
Subjective: Mojgan is seen today in follow up for her hemorrhagic CVA. She is seen while resting in bed and nursing reports that she just woke up from her nap. She is nonverbal on exam but does smile and nod on occasion in response to questions. She appears in no distress. Nursing notes reviewed. No new labs since 10/14. No documented bowel movement x 3 days. Blood pressure appears variable, currently at 104/67 with heart rate at 79 and SAO2 95% on room air. Objective Vital signs: Temp Pulse Resp BP Pulse Ox 98 F 90 16 104/67 95 10/20/16 08:00 10/20/16 10:00 10/20/16 08:00 10/20/16 10:00 10/20/16 08:00 Weight: 51.3 kg - Constitutional Present: no acute distress, thin - Routine HEENT Exam Head: Present: normocephalic Eye: Absent: conjunctival icterus ENT: Present: mucous membranes dry - Routine Respiratory Exam Present: CTA bilaterally. Absent: accessory muscle use, rales, respiratory distress, rhonchi, stridor, wheezes - Routine Cardiovascular Exam Present: RRR, S1, S2 - Routine Abdominal Exam Present: soft, non tender Comments: PEG present - Routine Extremities Exam Present: no edema, non tender, pulses intact, normal capillary refill. Absent: cyanosis, clubbing, edema - Routine Musculoskeletal Exam Musculoskeletal: no clubbing or cyanosis, no erythera - Routine Skin Exam Present: intact, dry, warm - Routine Neurological Exam Present: alert. Absent: normal speech nonverbal - Routine Lymphatic Exam Lymphatic: Absent: lymphedema - Routine Psychiatric Exam Comments: alert Results - Labs CBC & Chem 7: 09/30/16 06:11 10/14/16 07:44 Assessment and Plan (1) Cerebrovascular accident, hemorrhagic Current visit: Yes Status: Chronic (2) Dysphagia Current visit: Yes Status: Chronic (3) Gait disturbance, post-stroke Current visit: Yes Status: Chronic (4) HTN (hypertension) Current visit: Yes Status: Acute (5) Hypernatremia Current visit: Yes Status: Acute Assessment and Plan: 10/20/16 Continue with currently blood pressure management and monitor carefully. Blood pressure appears variable, currently at 104/67. Current regimen including labetalol, lisinopril, hydralazine, Catapres, Norvasc. Continue with current free water via feeding tube for hypernatremia. On 10/14, sodium was 146. Recheck BMP in AM to monitor electrolytes and renal function. Lovenox for DVT prophylaxis. Recheck labs in AM to monitor blood counts, electrolytes and renal function. Sepsis Assessment - Evaluation Sepsis screening result: No Definite Risk - Focused Exam Vital Signs Temp Pulse Resp BP Pulse Ox 10/20/16 10:00 90 104/67 10/20/16 08:00 98 F 91 16 188/112 H 95 Respiratory exam: Present: CTA bilaterally Cardiovascular exam: Present: RRR, no murmur Capillary refill: < 2-3 Seconds Hospital Course Summary Disclaimer: The visit summary below is not to be considered part of the above Progress Note.
[2016-10-20] MEDS: CITALOPRAM 10 MG TABLET PO SCH ×2 (15:37→21:46)
[2016-10-20] MEDS: ATORVASTATIN 40 MG TABLET PO SCH ×2 (15:37→21:46)
[2016-10-20] MEDS: LISINOPRIL 20 MG TABLET PO SCH ×2 (15:38→21:46)
[2016-10-20] MEDS: PANTOPRAZOLE 40 MG TABLET PO SCH ×2 (15:38→21:46)
[2016-10-20] MEDS: OMEGA-3 ACID ESTERS 1 GM CAPSULE PO SCH (21:47)
[2016-10-21] MEDS: HYDRALAZINE 25 MG TABLET PO SCH ×3 (00:55→17:21)
[2016-10-21] MEDS: ENOXAPARIN 40 MG/0.4 ML INJECTION SQ SCH (09:07)
[2016-10-21] MEDS: AMLODIPINE 10 MG TABLET PO SCH (09:08)
[2016-10-21] MEDS: SENNA + DOCUSATE TABLET PO SCH ×2 (09:08→22:14)
[2016-10-21] MEDS: LABETALOL 100 MG TABLET PO SCH ×2 (09:08→22:13)
[2016-10-21] MEDS: DIVALPROEX SPRINKLE 125 MG CAPSULE PO SCH ×2 (09:08→22:12)
[2016-10-21] MEDS: DOCUSATE SODIUM 100 MG CAPSULE PO SCH ×2 (09:09→22:14)
[2016-10-21] MEDS: BACLOFEN 10 MG TABLET PO SCH ×3 (09:09→22:14)
[2016-10-21] MEDS: ASPIRIN 81 MG CHEWABLE TABLET PO SCH (09:11)
--- NOTE | 2016-10-21 16:10 | Progress Note ---
Subjective: Mojgan is seen today with her . Today is their 30 year anniversary. Staff is having dessert as Mojgan is leaving tomorrow. She continues to be doing well without any new issues. No pain or shortness of breath. BP 133/80. Objective Vital signs: Temp Pulse Resp BP Pulse Ox 97.6 F 87 12 133/80 97 10/21/16 08:00 10/21/16 08:00 10/21/16 08:00 10/21/16 08:00 10/21/16 08:00 Body Mass Index: 20.0 - Constitutional Present: no acute distress, thin - Routine HEENT Exam Eye: Present: EOMI, PERRL - Routine Respiratory Exam Present: CTA bilaterally - Routine Cardiovascular Exam Present: RRR, S1, S2 - Routine Abdominal Exam Present: soft - Routine Back/Spine/Pelvis Exam Back/Spine: Present: full ROM - Routine Skin Exam Present: intact - Routine Neurological Exam Present: alert, CN II-XII intact - Routine Psychiatric Exam Present: normal affect Results - Labs CBC & Chem 7: 10/21/16 04:27 10/21/16 04:27 Labs: Short CBC 10/21/16 Range/Units 04:27 WBC 4.9 (4.5-11.0) T/MM3 Hgb 11.3 L (12-16) GM/DL Hct 35.6 L (36-46) % Plt Count 168 (130-400) T/MM3 [facility] 10/21/16 04:27 Sodium 145 H Potassium 3.7 Chloride 108 H Carbon Dioxide 28 BUN 12.0 Creatinine 0.6 L Glucose 96 Calcium 9.3 Assessment and Plan (1) Hypernatremia Current visit: Yes Status: Acute (2) Cerebrovascular accident, hemorrhagic Current visit: Yes Status: Chronic (3) Dysphagia Current visit: Yes Status: Chronic (4) Gait disturbance, post-stroke Current visit: Yes Status: Chronic (5) HTN (hypertension) Current visit: Yes Status: Acute Assessment and Plan: 10/21/16 Blood pressure remains well controlled on labetalol, lisinopril, hydralazine, Catapres, Norvasc. Hypernatremia remains persistant NA today 145 Lovenox for DVT prophylaxis. Will be transferring to [facility] in [facility] tomorrow 6/6 Sepsis Assessment - Evaluation Sepsis screening result: No Definite Risk - Focused Exam Vital Signs Temp Pulse Resp BP Pulse Ox 10/21/16 08:00 97.6 F 87 12 133/80 97 Respiratory exam: Present: CTA bilaterally Cardiovascular exam: Present: RRR, no murmur Capillary refill: < 2-3 Seconds Hospital Course Summary Disclaimer: The visit summary below is not to be considered part of the above Progress Note.
[2016-10-21] MEDS: CITALOPRAM 10 MG TABLET PO SCH (22:14)
[2016-10-21] MEDS: ATORVASTATIN 40 MG TABLET PO SCH (22:14)
[2016-10-21] MEDS: PANTOPRAZOLE 40 MG TABLET PO SCH (22:16)
[2016-10-21] MEDS: OMEGA-3 ACID ESTERS 1 GM CAPSULE PO SCH (22:31)
[2016-10-21] MEDS: LISINOPRIL 20 MG TABLET PO SCH (22:35)
[2016-10-22] MEDS: HYDRALAZINE 25 MG TABLET PO SCH ×2 (00:11→08:55)
[2016-10-22] MEDS: BACLOFEN 10 MG TABLET PO SCH (08:55)
[2016-10-22] MEDS: DIVALPROEX SPRINKLE 125 MG CAPSULE PO SCH (08:55)
[2016-10-22] MEDS: DOCUSATE SODIUM 100 MG CAPSULE PO SCH (08:55)
[2016-10-22] MEDS: LABETALOL 100 MG TABLET PO SCH (08:55)
[2016-10-22] MEDS: ENOXAPARIN 40 MG/0.4 ML INJECTION SQ SCH (08:56)
[2016-10-22] MEDS: SENNA + DOCUSATE TABLET PO SCH (08:56)
[2016-10-22] MEDS: ASPIRIN 81 MG CHEWABLE TABLET PO SCH (08:56)
[2016-10-22] MEDS: AMLODIPINE 10 MG TABLET PO SCH (08:56)
--- NOTE | 2016-10-22 11:50 | IRU Progress Note ---
- Subjective/Serverity of Illness Pt preparing for d/c. She is up working with PT and OT. Exam Vital Signs: Temp Pulse Resp BP Pulse Ox 97.6 F 87 12 133/80 97 10/21/16 08:00 10/21/16 08:00 10/21/16 08:00 10/21/16 08:00 10/21/16 08:00 Telemetry Rhythm: Sinus Rhythm Height: 1.63 m Weight: 57.9 kg Body Mass Index: 20.0 - Constitutional Present: no acute distress, thin - Routine HEENT Exam Head: Present: normocephalic, atraumatic - Routine Respiratory Exam Present: CTA bilaterally - Routine Cardiovascular Exam Present: RRR Results - Labs CBC & Chem 7: 10/21/16 04:27 10/21/16 04:27 Labs: Short CBC 10/21/16 Range/Units 04:27 WBC 4.9 (4.5-11.0) T/MM3 Hgb 11.3 L (12-16) GM/DL Hct 35.6 L (36-46) % Plt Count 168 (130-400) T/MM3 [facility] 10/21/16 04:27 Sodium 145 H Potassium 3.7 Chloride 108 H Carbon Dioxide 28 BUN 12.0 Creatinine 0.6 L Glucose 96 Calcium 9.3 Sepsis Assessment - Evaluation Sepsis screening result: No Definite Risk - Focused Exam Vital Signs Temp Pulse Resp BP Pulse Ox 10/21/16 08:00 97.6 F 87 12 133/80 97 Respiratory exam: Present: CTA bilaterally Cardiovascular exam: Present: RRR, no murmur Capillary refill: < 2-3 Seconds IRU A/P (1) Current visit: No (2) Cerebrovascular accident, hemorrhagic Current visit: Yes Status: Chronic Medical management. PT and OT also working with pt. She will be d/c tomorrow to go to inpatient care facility in [place], [place]. Staff preparing her. involved, and has been the entire time. He is incredibly supportive. (3) Dysphagia Current visit: Yes Status: Chronic Pt doing well on clears. (4) Gait disturbance, post-stroke Current visit: Yes Status: Chronic (5) HTN (hypertension), malignant Current visit: Yes Status: Acute managed by medical. DVT Prophylaxis: SCD's Resuscitation Status: Full Code - Course Hospital Course: Vinay Rocha MD:
--- NOTE | 2016-10-22 11:51 | IRU Progress Note ---
- Subjective/Serverity of Illness Pt resting comfortably. She did work with PT and OT and walked to bathroom with assist. Exam Vital Signs: Temp Pulse Resp BP Pulse Ox 97.2 F 88 16 104/63 97 10/18/16 11:37 10/18/16 11:37 10/18/16 11:37 10/18/16 11:37 10/18/16 11:37 Height: 1.63 m Weight: 51.8 kg Body Mass Index: 20.0 - Constitutional Present: no acute distress - Routine Respiratory Exam Present: CTA bilaterally - Routine Cardiovascular Exam Present: RRR, no murmur Results - Labs CBC & Chem 7: 09/30/16 06:11 10/14/16 07:44 Sepsis Assessment - Evaluation Sepsis screening result: No Definite Risk - Focused Exam Vital Signs Temp Pulse Resp BP Pulse Ox 10/18/16 11:37 97.2 F 88 16 104/63 97 10/18/16 08:00 98.1 F 89 18 142/84 H 97 Capillary refill: < 2-3 Seconds IRU A/P (1) Current visit: No (2) Cerebrovascular accident, hemorrhagic Current visit: Yes Status: Acute Medical management. Pt working with PT and OT and cont to show progress. She is going to be discharged early next week if we can establish placement through insurance. Case management working to facilitate. Cont with Pt and OT perplan of care. (3) Dysphagia Current visit: Yes Status: Acute Speech working with patient. (4) Gait disturbance, post-stroke Current visit: Yes Status: Acute Using walker with assist. Cont with PT and OT care. (5) HTN (hypertension), malignant Current visit: Yes Status: Acute managed by medical. DVT Prophylaxis: SCD's Resuscitation Status: Full Code - Course Hospital Course: Vinay Rocha MD:
--- NOTE | 2016-10-29 11:05 | Discharge Summary ---
Discharge Information Date of admission: 08/20/16 16:31 Attending Physician: Vinay Rocha MD Primary care physician: JAROCHO MIKE Consults: 10/16/16 Consult to Anesthesiology [CONS] Routine Consulting Provider: ALEJANDRO Stein Reason For Exam: Anesthesia Consult 10/16/16 12:53 Dietary Consult [CONS] Routine Comment: Reason For Exam: tube feedings, bolus vs pump, discuss with family 10/16/16 13:11 Physician Consult [CONS] Routine Consulting Provider: Zbigniew Perez Reason For Exam: Feeding tube placement Ordering Provider has Notified [employer] Business Manager: Yes Comment: have already been notified 10/16/16 13:12 Physician Consult [CONS] Routine Consulting Provider: Kandi Alvarenga Reason For Exam: cva? medication involvement in sedation Ordering Provider has Notified [employer] Business Manager: Yes 10/16/16 13:29 Physician Consult [CONS] Routine Consulting Provider: Agnes Shaikh Reason For Exam: HTN management Ordering Provider has Notified [employer] Business Manager: Yes Comment: already notified - Discharge Diagnosis (1) Cerebrovascular accident, hemorrhagic Status: Chronic (2) Dysphagia Status: Chronic (3) Gait disturbance, post-stroke Status: Chronic (4) HTN (hypertension) Status: Acute (5) Hypernatremia Status: Acute - Laboratory Labs: 10/21/16 04:27 10/21/16 04:27 History of Present Illness HPI: Patient is a 51-year-old female who was brought to [facility] emergency room on 07/25/16 for sudden onset of expressive aphasia. She was found extremely hypertensive at that time 275/[address] scan revealed an acute intraparenchymal hemorrhage CVA with 6mm left to right midline shift. She was also found to have numerous scattered areas of ischemia and multiple intracranial vascular territories likely embolic. She was transferred acutely to [facility] where she has been for the past 3 weeks. During her stay at [facility] she was placed on the ventilator due to acute respiratory failure and subsequently developed ventilator associated pneumonia, Pseudomonas and was extubated on 08/08/16. Sputum culture was positive for Pseudomonas Aeruginosa and Ecoli on 08/06/16 and she has completed her antibiotic course. She has been on Norvasc 10 milligrams daily, clonidine 0.1 milligrams 3 times a day, hydralazine 20 milligrams every 4 hours, lisinopril 10 milligrams daily, metoprolol 200 milligrams twice a day along with when necessary hydralazine and labetalol for aggressive blood pressure control. She underwent a 4 vessel angio on 08/01/16 revealing scattered areas of vascular irregularity suspicious for vasculitis, she was then placed on steroids. Her ANCA (Anti- neutrophil Cytoplasmic antibody) was found to be negative. . She did have hydrocephalus with elevated opening pressure and EVD was placed on 08/02, this was removed on . She was placed on Seroquel several days ago in attempt to assist with sleeping however it was significantly sedating and affected her verbal response, as well as ability to work with therapy. This was discontinued prior to discharge. She was admitted to rehabilitation. Initially on 08/16/16, however, on 08/17, she had a change in mental status and was then transferred to the ICU for further evaluation and treatment. Stat CT head was obtained at this time and compared to imaging from [facility]. This was found to be essentially unchanged. She was given IV Decadron and her mentation did initially improve. Blood pressure was monitored and managed carefully. Yesterday on 08/20/16 she was discharged and admitted back to inpatient rehabilitation unit for ongoing therapy. Hospital Course Hospital course: Ms. Wellington is a 51 year old female who is admitted on 08/20/2016 status post CVA , hemorrhagic with midline shift. She had severe mild clonus with contractures of right arm, dysphagia, mental status changes. Throughout the 2 months and 2 days that she was in our unit, she had intensive physical therapy and occupational therapy as well as speech therapy involvement. She required intensive management of blood pressure ultimately requiring multiple blood pressure medications including some IV. At issue during admission was difficulty showing improvement by FIM scores. However staff and insurance company all documented significant overall improvement. At time of discharge she had gone from being essentially nonresponsive in bed to feeding herself, walking to the bathroom with assist, and interacting with family and staff. He recognized and responded to individuals, smiled and response to conversation. Him stated words. And used a picture brooklet for communication. She is being discharged to a inpatient rehabilitation at [facility]. Her is planning to travel with her and stay with her there. DVT Prophylaxis: SCD's Discharge Plan - Med Rec/Dispo Referrals/Follow Up: Nusrat Mckay [Other] ( ) Salvador Acevedo MD [Physician] - (Appointment for 01/06/17 at 10:30 am for Neurology follow-up. [facility] [id number] [place] [place] [id number] ) Ace Hopkins MD [Physician] - (No appt. scheduled due to patient transferring to another facility.) Melissa Instructions: How to Use and Care for Your PEG Tube (GEN), Hemorrhagic Stroke (GEN), Chronic Hypertension (GEN) Prescriptions: New Acetaminophen [Tylenol] 650 mg PO Q4H PRN PRN Reason: Pain CloNIDine [Catapres] 0.2 mg PO BID Hydralazine [Apresoline] 50 mg PO Q8HMC Hydrocodone/APAP 5/325 [[place] 5/325] 1 - 2 tab PO Q5H PRN #30 PRN Reason: Pain Aspirin Chewable [ASA] 81 mg PO DAILY Atorvastatin [Lipitor] 40 mg PO HS Bisacodyl Supp [Dulcolax] 10 mg RECTALLY DAILY PRN supp PRN Reason: Constipation Docusate Sodium [Colace] 100 mg PO BID cap Milk of Magnesia [Mom] 30 ml PO HS PRN PRN Reason: Constipation Nitroglycerin [Nitrostat] 0.4 mg SL Q5MIN3 PRN PRN Reason: Chest Pain [place]-3 Acid Ethyl Esters [Lovaza] 15 gm PO DAILY@1800 cap Pantoprazole Tab [Protonix Tab] 40 mg PO HS Divalproex Sprinkle [Depakote Sprinkle] 250 mg PO BID cap Labetalol [Normodyne] 300 mg PO BID PEG 3350 17gm PACKET [Miralax] 17 gm PO BID PRN packet PRN Reason: Constipation Senna + Docusate [Senna Plus Tablet] 1 tab PO BID Fluticasone Nasal [place] [Flonase] 1 spray EA NOSTRIL DAILY PRN bottle PRN Reason: Allergy Symptoms Glucose Oral Gel 40% [Glutose 15] 37.5 gm PO PRN PRN tube PRN Reason: Hypoglycemia Potassium Chloride ER Tab [K-Dur] 20 meq PO WB Amlodipine [Norvasc] 10 mg PO DAILY Baclofen [Lioresal] 10 mg PO TID Lisinopril [Prinivil] 20 mg PO HS Glucagon [Glucagen] 1 mg IM PRN PRN ml PRN Reason: FOR HYPOGLYCEMIA Continue Citalopram Hydrobromide [Citalopram HBr] 20 mg PO HS #0 Discontinued Enoxaparin Sodium 40 mg SQ DAILY #0 Hydralazine HCl 10 mg IV Q2H PRN #0 PRN Reason: PRN ORDERS cloNIDine HCl [Clonidine HCl] 0.1 mg PO TID #0 Hydralazine HCl 20 mg PO Q4H #0 Acetaminophen 650 mg PO Q4H PRN #0 PRN Reason: PAIN/FEVER Dextrose [Glucose Gel] 15 gm PO O PRN #0 PRN Reason: HYPOGLYCEMIA Bisacodyl 10 mg RECTALLY BID PRN #0 PRN Reason: CONSTIPATION Ondansetron HCl/Pf [Ondansetron HCl 4 mg/2 ml Vial] 4 mg IV Q6H PRN #0 PRN Reason: NAUSEA &/OR VOMITING Pantoprazole Sodium 40 mg PO HS #0 PredniSONE [Deltasone] 40 mg PO WB #0 PredniSONE [Deltasone] 30 mg PO WB #0 PredniSONE [Deltasone] 20 mg PO WB #0 Glucagon,Human Recombinant [Glucagon Emergency Kit] 1 mg IM O PRN #0 PRN Reason: HYPOGLYCEMIA Tamsulosin HCl 0.4 mg PO HS #0 Baclofen 5 mg PO QID 28 Days Atorvastatin Calcium 40 mg PO HS #0 Nitroglycerin 0.4 mg SL Q5M PRN #0 PRN Reason: CHEST PAIN Labetalol HCl 10 mg IV Q2H PRN #0 PRN Reason: PRN ORDERS Amlodipine Besylate 10 mg PO DAILY #0 Lisinopril 10 mg PO DAILY #0 Aspirin 81 mg PO DAILY #0 Magnesium Hydroxide [Milk of Magnesia] 30 ml PO HS PRN #0 PRN Reason: CONSTIPATION Polyethylene Glycol 3350 [Miralax] 17 g PO BID PRN #0 PRN Reason: CONSTIPATION Ondansetron HCl 4 mg PO Q6H PRN #0 PRN Reason: NAUSEA &/OR VOMITING Docusate Sodium 1 cap PO BID #30 cap Labetalol HCl 150 mg PO BID 30 Days - Disposition 62 To Rehab Unit/Facility
== END 2016-10-22 12:30 | DRG 57 ==
PROVIDERS: ADMIT Family Medicine; ATTEND Family Medicine